=== PATIENT | female | born 1930 | race Caucasian/White ===

== ENCOUNTER 2016-04-29 21:01 | Inpatient (IN) ==
--- NOTE | 2016-04-29 21:18 | Emergency Department Note ---
START Narrative - START START: I examined this patient and my medical decision-making was reviewed with the RECORDS MANAGEMENT ASSISTANT/PA/Advanced Practice Nurse/Resident Physician. I agree with the documented findings, disposition and treatment plan as described except to the extent set forth below. ED attending note: Patient seen with emergency medicine resident Dr. Quintero. Please see a copy of his note for details of the H&P, evaluation, management and disposition of this patient. We independently had [id number] contact with the patient Briefly: A 85-year-old female via EMS from a private residence mental status approximately one week with what appears to be dysesthesias or tardive dyskinesia related today and some word trembling. Nonfocal but slow to answer questions. She mental status workup. She is afebrile with stable vital signs. Disposition pending. 40 minutes critical care service provided for this patient. Patient stable.
[2016-04-29 21:24] LABS: Basophils # 0.1 K/mcL (0.0-0.2); Basophils % 0.8 %; Eosinophils # 0.3 K/mcL (0.0-0.6); Eosinophils % 3.8 %; Hematocrit 36.1 % (35.3-44.9); Hemoglobin 11.8 g/dL (11.5-15.4); Immature Granulocytes % 0.3 % (0-4); Lymphocytes # 1.3 K/mcL (0.6-4.6); Lymphocytes % 17.1 %; Mean Corpuscular HGB Conc 32.7 g/dL (31.6-35.5); Mean Corpuscular Hemoglobin 29.8 pg (28.0-33.3); Mean Corpuscular Volume 91.2 fL (83.0-100.0); Monocytes # 0.6 K/mcL (0.0-1.3); Monocytes % 7.9 %; Neutrophils # 5.2 K/mcL (1.6-8.9); Platelet Count 371 K/mcL (140-400); Red Blood Count 3.96 M/mcL (3.82-4.97); Red Cell Distribution Width 14.6 % (11.5-14.5); Segmented Neutrophils % 70.1 %
[2016-04-29 21:30] LABS: INR 1.1; Prothrombin Time 11.7 Seconds (9.4-12.1)
[2016-04-29 21:39] LABS: Alanine Aminotransferase 15 Units/L (0-55); Albumin 3.4 g/dL (3.5-5.0); Albumin/Globulin Ratio 0.9 (1.1-2.2); Alkaline Phosphatase 73 Units/L (38-126); Aspartate Amino Transferase 18 Units/L (5-34); BUN/Creatinine Ratio 40 (6-26); Bilirubin,Direct 0.1 mg/dL (0.0-0.5); Bilirubin,Indirect 0.1 mg/dL (0.0-1.2); Bilirubin,Total 0.2 mg/dL (0.2-1.2); Blood Urea Nitrogen 44 mg/dL (7-20); Calcium 9.9 mg/dL (8.6-10.8); Carbon Dioxide 21 mEq/L (19-29); Chloride 109 mEq/L (98-109); Ethanol < 10 mg/dL (0-10); Glucose 110 mg/dL (70-99); Osmolality,Calculated 304 (280-300); Potassium 3.9 mEq/L (3.5-4.5); Sodium 141 mEq/L (136-145); Total Protein 7.4 g/dL (6.0-8.3); eGFR For African Americans 58 (> 60); eGFR For Non-African Americans 47 (> 60)
[2016-04-29 22:00] LABS: Thyroid Stimulating Hormone 2.011 mcIU/mL (0.350-4.840)
[2016-04-29 22:59] LABS: Bilirubin,Urine Negative (Negative); Blood,Urine Negative (Negative); Clarity,Urine Turbid (Clear); Color,Urine Yellow (Yellow); Glucose,Urine (UA) Normal (Normal); Ketones,Urine Negative (Negative); Leukocyte Esterase,Urine Moderate (Negative); Nitrite,Urine Negative (Negative); PH,Urine 5.5 pH Units (5.0-8.0); Protein,Urine 100 mg/dL (Neg-Trace); Specific Gravity,Urine 1.023 (1.010-1.025); Urobilinogen,Urine Normal (Normal)
[2016-04-29 23:02] LABS: Bacteria,Urine Many per hpf (None-Few); RBC,Urine 0-3 per hpf (0-3); Squamous Epithelial Cell,Urine Many per lpf (None-Few); WBC,Urine TNTC per hpf (0-3)
[2016-04-29 23:08] LABS: Amorphous Sediment,Urine Few (Few)
--- NOTE | 2016-04-30 00:05 | Emergency Department Note ---
Disposition Clinical Impression: Altered mental status Qualifiers: Altered mental status type: unspecified Qualified Code(s): R41.82 - Altered mental status, unspecified Urinary tract infection Qualifiers: Urinary tract infection type: site unspecified Hematuria presence: without hematuria Qualified Code(s): N39.0 - Urinary tract infection, site not specified Disposition: Admitted As Inpatient Altered Mental Status HPI - General Chief Complaint: ED Altered Mental Status Stated Complaint: AMS Source: EMS Limitations: altered mental status, age Nursing Notes Reviewed: Yes Vital Signs Reviewed: Yes - History of Present Illness HPI Narrative: Patient here for evaluation of altered mental status. Patient has been having issues for approximately 1 week. Initially thought to initiation of Aricept. Patient's did not sleep for 2 days so he removed this. Today the patient began having altered mental status as it relates to intermittent abnormal breathing pattern as well as abnormal movements of the face and lips. Patient with slow cognitive function. Family member at bedside stating it has progressed to the point that she is required more care. She lives at home and undergoes home health care. - Related Data Home Medications Medication Instructions Recorded Confirmed Amlodipine [Norvasc] 10 mg PO DAILY 11/30/14 09/09/15 Simvastatin [Zocor] 20 mg PO QPM 11/30/14 09/09/15 Acetaminophen [Tylenol] 500 mg PO Q6HR PRN 09/01/15 10/18/15 Alendronate Sodium [Fosamax] 70 mg PO QWEEK 09/01/15 10/18/15 Bisacodyl [Dulcolax] 5 mg PO DAILY PRN 09/01/15 10/18/15 Calcium Carbonate/Vitamin D3 1 each PO DAILY 09/01/15 10/18/15 [Calcium 600 + Vit D Tablet] Cholecalciferol (D-3) [Vitamin D] 1,000 unit PO DAILY 09/01/15 10/18/15 Cyanocobalamin (Vitamin B-12) 1,000 mcg SL DAILY 09/01/15 10/18/15 [Vitamin B-12] Multivitamin [Multi-Day Vitamins] 1 each PO DAILY 09/01/15 10/18/15 [place]-3/Dha/Epa/Fish Oil [Fish Oil 1 each PO DAILY 09/01/15 10/18/15 1,000 mg Softgel] Previous Rx's Medication Instructions Recorded Isosorbide MONOnitrate (24 HR) 30 mg PO DAILY #0 09/09/15 [Imdur] Sodium Chloride 2 gm PO TID #0 tablet 09/09/15 TraMADol [Ultram] 50 mg PO TID PRN #20 tablet 09/09/15 Ciprofloxacin HCl [Cipro] 500 mg PO BID #20 tablet 10/02/15 Potassium Chloride 20 meq PO DAILY #5 tab.er.prt 10/12/15 Allergies Allergy/AdvReac Type Severity Reaction Status Date / Time Oxycodone [From Percocet] Allergy hallucinati Verified 09/09/15 23:36 ons prednisone Allergy lip Verified 09/09/15 23:36 swelling Sulfa (Sulfonamide Allergy Rash Verified 09/09/15 23:36 Antibiotics) acetaminophen [From [place]] AdvReac Confusion Verified 04/29/16 21:15 gabapentin AdvReac Confusion Verified 04/29/16 21:15 hydrocodone [From [place]] AdvReac Confusion Verified 04/29/16 21:15 meloxicam [From Mobic] AdvReac leg Verified 09/09/15 23:36 swelling All systems ED: reviewed and negative except as stated. Constitutional: Reports: chills, weakness Respiratory: Reports: other (Inner mid tachypnea lasting for 20-30 seconds happening twice over approximately 4-1/2 hours) Gastrointestinal: Denies: abdominal pain, nausea, vomiting Genitourinary: Denies: urgency, dysuria Musculoskeletal: Denies: back pain, neck pain Integumentary: Denies: rash, abrasion Neurological: Reports: weakness. Denies: headache Past Medical History - Past Medical History Medical history: Reports: arthritis, hypertension, renal disease, other Surgical history: Reports: appendectomy, hysterectomy Psychiatric history: Reports: anxiety CONTINUOUS PICKLING LINE PICKLER history: Reports: no CONTINUOUS PICKLING LINE PICKLER history - Social History Smoking Status: Never smoker Smokeless Tobacco Status: No Alcohol use: Reports: none Drug use: Reports: none Physical Exam - General Limitations: altered mental status, age General appearance: in no apparent distress, other - Head Head exam: atraumatic, normocephalic - Eye Eye exam: Present: normal appearance, PERRL - ENT ENT exam: normal exam, normal oropharynx, mucous membranes dry - Neck Neck exam: Present: normal inspection, full ROM - Chest Chest inspection: Present: normal inspection, symmetric chest wall rise - Respiratory Respiratory exam: Present: normal lung sounds bilaterally. Absent: respiratory distress - Cardiovascular Cardiovascular exam: Present: regular rate, normal rhythm - Abdominal Exam Abdominal exam: Present: soft, Non-Tender - Extremities Exam Extremities exam: Present: normal inspection. Absent: tenderness - Expanded Lower Extremity Exam Hip/Pelvis exam: Present: normal inspection. Absent: tenderness - Back Exam Back exam: Present: normal inspection. Absent: tenderness - Neurological Exam Neurological exam: Present: alert, oriented X3, CN II-XII intact - Expanded Neurological Exam Patient oriented to: Present: person, place (Hospital). Absent: time Speech: Present: fluid speech (Slow) Cranial nerves: EOM function (II, III, IV, ): Normal, facial sensation (V): Normal, facial palsy (VII): Normal, gag reflex (IX): Normal, spinal accessory function (XI): Normal, tongue deviation (XII): Normal Motor strength - LUE: 5/5 Motor strength - RUE: 5/5 Motor strength - LLE: 5/5 Motor strength - RLE: 5/5 Coma Scale Eye Opening: Spontaneous Coma Scale Motor Response: Obeys Commands Coma Scale Verbal Response: Oriented Coma Scale Total: 15 - Psychiatric Psychiatric exam: Present: normal affect, normal mood Course - Consultations Consultation #1: discussed with Dr. Roman. Pt accepted. Vital Signs Temperature 97.7 F 04/29/16 21:04 Pulse Rate 80 04/29/16 21:04 Respiratory Rate 18 04/29/16 21:04 Blood Pressure 148/75 04/29/16 21:04 O2 Sat by Pulse Oximetry 98 04/29/16 21:04 Temperature 97.7 F 04/29/16 21:04 Pulse Rate 81 04/30/16 00:24 Respiratory Rate 16 04/30/16 00:24 Blood Pressure 146/75 04/30/16 00:24 O2 Sat by Pulse Oximetry 97 04/30/16 00:24 Oxygen Delivery Oxygen Delivery Room Air Altered Mental Status - Medical Records Medical records reviewed: Yes I reviewed the patient's medical records. - Lab Data Lab results reviewed: Yes I reviewed the patient's lab results. Result diagrams: 04/29/16 21:15 04/29/16 21:15 Lab Results 01/15/17 01/15/17 01/15/17 Range/Units 21:05 21:15 21:15 WBC 7.4 (4.3-11.1) K/mcL RBC 3.96 (3.82-4.97) M/mcL Hgb 11.8 (11.5-15.4) g/dL Hct 36.1 (35.3-44.9) % MCV 91.2 (83.0-100.0) fL MCH 29.8 (28.0-33.3) pg MCHC 32.7 (31.6-35.5) g/dL RDW 14.6 H (11.5-14.5) % Plt Count 371 (140-400) K/mcL MPV 9.0 L (9.4-12.4) fL Immature Gran % 0.3 (0-4) % Seg Neutrophils % 70.1 % Lymphocytes % 17.1 % Monocytes % 7.9 % Eosinophils % 3.8 % Basophils % 0.8 % Neutrophils # 5.2 (1.6-8.9) K/mcL Lymphocytes # 1.3 (0.6-4.6) K/mcL Monocytes # 0.6 (0.0-1.3) K/mcL Eosinophils # 0.3 (0.0-0.6) K/mcL Basophils # 0.1 (0.0-0.2) K/mcL PT 11.7 (9.4-12.1) Seconds INR 1.1 Sodium (136-145) mEq/L Potassium (3.5-4.5) mEq/L Chloride (98-109) mEq/L Carbon Dioxide (19-29) mEq/L BUN (7-20) mg/dL Creatinine (0.57-1.11) mg/dL Est GFR ( Amer) (> 60) Est GFR (Non-Af Amer) (> 60) BUN/Creatinine Ratio (6-26) Glucose (70-99) mg/dL POC Glucose 121 H (58-89) Calculated Osmolality (280-300) Calcium (8.6-10.8) mg/dL Total Bilirubin (0.2-1.2) mg/dL Direct Bilirubin (0.0-0.5) mg/dL Indirect Bilirubin (0.0-1.2) mg/dL AST (5-34) Units/L ALT (0-55) Units/L Alkaline Phosphatase (38-126) Units/L Troponin I (0-0.03) ng/mL Serum Total Protein (6.0-8.3) g/dL Albumin (3.5-5.0) g/dL Globulin (2.4-3.5) g/dL Albumin/Globulin Ratio (1.1-2.2) TSH (0.350-4.840) mcIU/mL Urine Color (Yellow) Urine Clarity (Clear) Urine pH (5.0-8.0) pH Units Ur Specific [place] (1.010-1.025) Urine Protein (Neg-Trace) mg/dL Urine Glucose (UA) (Normal) mg/dL Urine Clinitest (Negative) Urine Ketones (Negative) mg/dL Urine Blood (Negative) Urine Nitrite (Negative) Urine Bilirubin (Negative) Urine Urobilinogen (Normal) mg/dL Ur Leukocyte Esterase (Negative) Urine Microscopic RBC (0-3) per hpf Urine Microscopic WBC (0-3) per hpf Ur Squamous Epith Cells (None-Few) per lpf Amorphous Sediment (Few) Urine Bacteria (None-Few) per hpf Hyaline Casts Urine Yeast Ur Culture Indicated? (NO) Ethyl Alcohol (0-10) mg/dL 04/29/16 04/29/16 04/29/16 Range/Units 21:15 21:15 22:45 WBC (4.3-11.1) K/mcL RBC (3.82-4.97) M/mcL Hgb (11.5-15.4) g/dL Hct (35.3-44.9) % MCV (83.0-100.0) fL MCH (28.0-33.3) pg MCHC (31.6-35.5) g/dL RDW (11.5-14.5) % Plt Count (140-400) K/mcL MPV (9.4-12.4) fL Immature Gran % (0-4) % Seg Neutrophils % % Lymphocytes % % Monocytes % % Eosinophils % % Basophils % % Neutrophils # (1.6-8.9) K/mcL Lymphocytes # (0.6-4.6) K/mcL Monocytes # (0.0-1.3) K/mcL Eosinophils # (0.0-0.6) K/mcL Basophils # (0.0-0.2) K/mcL PT (9.4-12.1) Seconds INR Sodium 141 (136-145) mEq/L Potassium 3.9 (3.5-4.5) mEq/L Chloride 109 (98-109) mEq/L Carbon Dioxide 21 (19-29) mEq/L BUN 44 H (7-20) mg/dL Creatinine 1.09 (0.57-1.11) mg/dL Est GFR ( Amer) 58 L (> 60) Est GFR (Non-Af Amer) 47 L (> 60) BUN/Creatinine Ratio 40 H (6-26) Glucose 110 H (70-99) mg/dL POC Glucose (58-89) Calculated Osmolality 304 H (280-300) Calcium 9.9 (8.6-10.8) mg/dL Total Bilirubin 0.2 (0.2-1.2) mg/dL Direct Bilirubin 0.1 (0.0-0.5) mg/dL Indirect Bilirubin 0.1 (0.0-1.2) mg/dL AST 18 (5-34) Units/L ALT 15 (0-55) Units/L Alkaline Phosphatase 73 (38-126) Units/L Troponin I 0.02 (0-0.03) ng/mL Serum Total Protein 7.4 (6.0-8.3) g/dL Albumin 3.4 L (3.5-5.0) g/dL Globulin 4.0 H (2.4-3.5) g/dL Albumin/Globulin Ratio 0.9 L (1.1-2.2) TSH 2.011 (0.350-4.840) mcIU/mL Urine Color Yellow (Yellow) Urine Clarity Turbid A (Clear) Urine pH 5.5 (5.0-8.0) pH Units Ur Specific [place] 1.023 (1.010-1.025) Urine Protein 100 H (Neg-Trace) mg/dL Urine Glucose (UA) Normal (Normal) mg/dL Urine Clinitest (Negative) Urine Ketones Negative (Negative) mg/dL Urine Blood Negative (Negative) Urine Nitrite Negative (Negative) Urine Bilirubin Negative (Negative) Urine Urobilinogen Normal (Normal) mg/dL Ur Leukocyte Esterase Moderate H (Negative) Urine Microscopic RBC 0-3 (0-3) per hpf Urine Microscopic WBC TNTC H (0-3) per hpf Ur Squamous Epith Cells Many H (None-Few) per lpf Amorphous Sediment Few (Few) Urine Bacteria Many H (None-Few) per hpf Hyaline Casts Test Not Performed Urine Yeast Test Not Performed Ur Culture Indicated? YES A (NO) Ethyl Alcohol < 10 (0-10) mg/dL - Radiology Data Radiology results reviewed: Yes I reviewed the patient's radiology results. - EKG Data EKG attestation: Yes I reviewed and interpreted this EKG. EKG results narrative: EKG is normal sinus rhythm with ventricular rate of 78 bpm. LA interval 167. QRS 80. QTC 394. Patient has no significant ST elevations or depressions. Nonspecific T-wave changes. No acute changes from 10/02/2015. TPA Checklist - LKW: 3-4.5 hrs Add. Contraindications Patient/family understanding: The patient/family members have been counseled and understood the risk, benefit , and alternatives of treatment.
[2016-04-30] MEDS ORDERED: Naloxone 0.4 MG/ML INJ IVP PRN (02:26)
--- NOTE | 2016-04-30 02:34 | Internal Med History&Physical ---
Date of Encounter: 04/30/16 Time of Encounter: 01:30 Internal Medicine - H&P: HPI Chief complaint: Daughter reports intermittent confusion over the past week Admitted From: Emergency Dept Plans for Post Hospital Care: Home History of present illness: Ms. Barrett is an 85 year old female with medical history signficant for dementia, hyponatremia, hypertension was brought in by EMS after her daughter reported changes in her mental status over the past week. Changed in mental status was initiated thought to be related to institution of Donezepil for dementia, this confusion persisted even after the drug was withdrawn. The patient denies fever, chills or rigors, she denies urinary symptoms, she denies change in bowel habits, nausea or vomiting. She reports memory lapses and lower abdominal pain. Her daughter reports that the patient has not slept in 2 days. Abnormal breathing pattern was reported, however it appears the patient was anxiety and frightened. No cough or SOB reported. There is also report of tic- like involuntary movement of facial muscles, this resolved spontaneously. No history of seizures, she is not using any antipsychotics or medication with D2 blockade effects. She lives at home with her daughter and receives home health care. She is DNRCCA/DNI as per account of her daughter, Jacinta Knott ([phone]) , who is her NOK/POA. Medical history: Reports: arthritis, dementia, hypertension, renal disease, other Surgical history: Reports: appendectomy, hysterectomy Psychiatric history: Reports: anxiety MARKER MAKER history: Reports: no MARKER MAKER history Smoking Status: Never smoker Smokeless Tobacco Status: No Alcohol use: Reports: none Drug use: Reports: none Family history: Unable to obtain ROS: Limited by patients status. She only agrees to memory lapses, and mild lower abdominal pain, otherwise she denies the presence of other symptoms. Vital Signs Temperature 97.7 F 04/29/16 21:04 Pulse Rate 80 04/29/16 21:04 Respiratory Rate 18 04/29/16 21:04 Blood Pressure 148/75 04/29/16 21:04 O2 Sat by Pulse Oximetry 98 04/29/16 21:04 Temperature 97.7 F 04/29/16 21:04 Pulse Rate 81 04/30/16 00:24 Respiratory Rate 16 04/30/16 00:24 Blood Pressure 146/75 04/30/16 00:24 O2 Sat by Pulse Oximetry 97 04/30/16 00:24 O/E: Not in distress, not pale, anicteric, afebrile,acyanotic, anxious, appears frightened. HEENT: Trachea is central, no cervical or jugular lymphadenopathy Chest: CTAB. Heart:rrr, hs1/2 Abdomen: non-distended,soft, , non-tender,no masses. BS+ : no flank or CVA tenderness, no suprapubic tenderness ANGULAR DEVELOPER: aao x 3, no gross focal neurological deficit, very b Psychaitry: Mood is good, affect is congruent, speech is normal, thought process is logical and goal-directed. Extremities: no pedal normal pedal pulses, no calf tenderness SKIN: No active skin lesion Lab Results 04/29/16 04/29/16 04/29/16 Range/Units 21:05 21:15 21:15 WBC 7.4 (4.3-11.1) K/mcL RBC 3.96 (3.82-4.97) M/mcL Hgb 11.8 (11.5-15.4) g/dL Hct 36.1 (35.3-44.9) % MCV 91.2 (83.0-100.0) fL MCH 29.8 (28.0-33.3) pg MCHC 32.7 (31.6-35.5) g/dL RDW 14.6 H (11.5-14.5) % Plt Count 371 (140-400) K/mcL MPV 9.0 L (9.4-12.4) fL Immature Gran % 0.3 (0-4) % Seg Neutrophils % 70.1 % Lymphocytes % 17.1 % Monocytes % 7.9 % Eosinophils % 3.8 % Basophils % 0.8 % Neutrophils # 5.2 (1.6-8.9) K/mcL Lymphocytes # 1.3 (0.6-4.6) K/mcL Monocytes # 0.6 (0.0-1.3) K/mcL Eosinophils # 0.3 (0.0-0.6) K/mcL Basophils # 0.1 (0.0-0.2) K/mcL PT 11.7 (9.4-12.1) Seconds INR 1.1 Sodium (136-145) mEq/L Potassium (3.5-4.5) mEq/L Chloride (98-109) mEq/L Carbon Dioxide (19-29) mEq/L BUN (7-20) mg/dL Creatinine (0.57-1.11) mg/dL Est GFR ( Amer) (> 60) Est GFR (Non-Af Amer) (> 60) BUN/Creatinine Ratio (6-26) Glucose (70-99) mg/dL POC Glucose 121 H (58-89) Calculated Osmolality (280-300) Calcium (8.6-10.8) mg/dL Total Bilirubin (0.2-1.2) mg/dL Direct Bilirubin (0.0-0.5) mg/dL Indirect Bilirubin (0.0-1.2) mg/dL AST (5-34) Units/L ALT (0-55) Units/L Alkaline Phosphatase (38-126) Units/L Troponin I (0-0.03) ng/mL Serum Total Protein (6.0-8.3) g/dL Albumin (3.5-5.0) g/dL Globulin (2.4-3.5) g/dL Albumin/Globulin Ratio (1.1-2.2) TSH (0.350-4.840) mcIU/mL Urine Color (Yellow) Urine Clarity (Clear) Urine pH (5.0-8.0) pH Units Ur Specific [place] (1.010-1.025) Urine Protein (Neg-Trace) mg/dL Urine Glucose (UA) (Normal) mg/dL Urine Clinitest (Negative) Urine Ketones (Negative) mg/dL Urine Blood (Negative) Urine Nitrite (Negative) Urine Bilirubin (Negative) Urine Urobilinogen (Normal) mg/dL Ur Leukocyte Esterase (Negative) Urine Microscopic RBC (0-3) per hpf Urine Microscopic WBC (0-3) per hpf Ur Squamous Epith Cells (None-Few) per lpf Amorphous Sediment (Few) Urine Bacteria (None-Few) per hpf Hyaline Casts Urine Yeast Ur Culture Indicated? (NO) Ethyl Alcohol (0-10) mg/dL 04/29/16 04/29/16 04/29/16 Range/Units 21:15 21:15 22:45 WBC (4.3-11.1) K/mcL RBC (3.82-4.97) M/mcL Hgb (11.5-15.4) g/dL Hct (35.3-44.9) % MCV (83.0-100.0) fL MCH (28.0-33.3) pg MCHC (31.6-35.5) g/dL RDW (11.5-14.5) % Plt Count (140-400) K/mcL MPV (9.4-12.4) fL Immature Gran % (0-4) % Seg Neutrophils % % Lymphocytes % % Monocytes % % Eosinophils % % Basophils % % Neutrophils # (1.6-8.9) K/mcL Lymphocytes # (0.6-4.6) K/mcL Monocytes # (0.0-1.3) K/mcL Eosinophils # (0.0-0.6) K/mcL Basophils # (0.0-0.2) K/mcL PT (9.4-12.1) Seconds INR Sodium 141 (136-145) mEq/L Potassium 3.9 (3.5-4.5) mEq/L Chloride 109 (98-109) mEq/L Carbon Dioxide 21 (19-29) mEq/L BUN 44 H (7-20) mg/dL Creatinine 1.09 (0.57-1.11) mg/dL Est GFR ( Amer) 58 L (> 60) Est GFR (Non-Af Amer) 47 L (> 60) BUN/Creatinine Ratio 40 H (6-26) Glucose 110 H (70-99) mg/dL POC Glucose (58-89) Calculated Osmolality 304 H (280-300) Calcium 9.9 (8.6-10.8) mg/dL Total Bilirubin 0.2 (0.2-1.2) mg/dL Direct Bilirubin 0.1 (0.0-0.5) mg/dL Indirect Bilirubin 0.1 (0.0-1.2) mg/dL AST 18 (5-34) Units/L ALT 15 (0-55) Units/L Alkaline Phosphatase 73 (38-126) Units/L Troponin I 0.02 (0-0.03) ng/mL Serum Total Protein 7.4 (6.0-8.3) g/dL Albumin 3.4 L (3.5-5.0) g/dL Globulin 4.0 H (2.4-3.5) g/dL Albumin/Globulin Ratio 0.9 L (1.1-2.2) TSH 2.011 (0.350-4.840) mcIU/mL Urine Color Yellow (Yellow) Urine Clarity Turbid A (Clear) Urine pH 5.5 (5.0-8.0) pH Units Ur Specific [place] 1.023 (1.010-1.025) Urine Protein 100 H (Neg-Trace) mg/dL Urine Glucose (UA) Normal (Normal) mg/dL Urine Clinitest (Negative) Urine Ketones Negative (Negative) mg/dL Urine Blood Negative (Negative) Urine Nitrite Negative (Negative) Urine Bilirubin Negative (Negative) Urine Urobilinogen Normal (Normal) mg/dL Ur Leukocyte Esterase Moderate H (Negative) Urine Microscopic RBC 0-3 (0-3) per hpf Urine Microscopic WBC TNTC H (0-3) per hpf Ur Squamous Epith Cells Many H (None-Few) per lpf Amorphous Sediment Few (Few) Urine Bacteria Many H (None-Few) per hpf Hyaline Casts Test Not Performed Urine Yeast Test Not Performed Ur Culture Indicated? YES A (NO) Ethyl Alcohol < 10 (0-10) mg/dL CXR: increased lung markings in both perhilar area, unknown significance. EKG: NSR @ 78, normal axis, normal intervals. No significant change when compared to EKG of 10/02/2015. Head CT IMP Altered mental status Urinary tract infection Insomnia Reported facial tics of unknown significance, TIA/CVA unlikely. Chronic morbidities Dementia Hypertension History of hyponatremia on free water restriction. ? CKD. Arthritis PLAN Admit IV Ceftriaxone 1g QD Melatonin 3mg QHS. Urine and blood culture Continue essential medications of chronic morbidities DVT prophylaxis with Lovenox. Patient reassured. Consult high school social science teacher for discharge planning Patient is admitted for treatment of UTI. She is high risk due to associated alteration in mental status Past Med Surg Social Fam HX - Past Medical History Medical history: arthritis, dementia, hypertension, renal disease, other Psychiatric history: anxiety - Past Surgical History Surgical History: appendectomy, hysterectomy - Social History Smoking Status: Never smoker Smokeless Tobacco Status: No Alcohol use: none Drug use: none - Family History Mother Family Member Ethnicity: Non- Living Status: Hx Family Cardiac Disorders: No Hx Family Respiratory Disorders: No Hx Family Cancer: No Hx Family GI Disorders: No Hx Family Endocrine Disorder: No Hx Family Neuromuscular Disorders: No Hx Family Neurologic Disorders: Yes Hx Family HEENT Disorders: No Hx Family Autoimmune Disorders: Yes Internal Medicine - H&P: Meds Amlodipine [Norvasc] 10 mg PO DAILY 11/30/14 [History] Simvastatin [Zocor] 20 mg PO QPM 11/30/14 [History] Acetaminophen [Tylenol] 500 mg PO Q6HR PRN 09/01/15 [History] Alendronate Sodium [Fosamax] 70 mg PO QWEEK 09/01/15 [History] Bisacodyl [Dulcolax] 5 mg PO DAILY PRN 09/01/15 [History] Calcium Carbonate/Vitamin D3 [Calcium 600 + Vit D Tablet] 1 each PO DAILY [History] Cholecalciferol (D-3) [Vitamin D] 1,000 unit PO DAILY 09/01/15 [History] Cyanocobalamin (Vitamin B-12) [Vitamin B-12] 1,000 mcg SL DAILY 09/01/15 [ History] Multivitamin [Multi-Day Vitamins] 1 each PO DAILY 09/01/15 [History] [place]-3/Dha/Epa/Fish Oil [Fish Oil 1,000 mg Softgel] 1 each PO DAILY 09/01/15 [ History] Isosorbide MONOnitrate (24 HR) [Imdur] 30 mg PO DAILY #0 09/09/15 [Rx] Sodium Chloride 2 gm PO TID #0 tablet 09/09/15 [Rx] TraMADol [Ultram] 50 mg PO TID PRN #20 tablet 09/09/15 [Rx] Ciprofloxacin HCl [Cipro] 500 mg PO BID #20 tablet 10/02/15 [Rx] Potassium Chloride 20 meq PO DAILY #5 tab.er.prt 10/12/15 [Rx] Allergies Oxycodone [From Percocet] Allergy (Verified 09/09/15 23:36) hallucinations prednisone Allergy (Verified 09/09/15 23:36) lip swelling Sulfa (Sulfonamide Antibiotics) Allergy (Verified 09/09/15 23:36) Rash acetaminophen [From [place]] Adverse Reaction (Verified 04/29/16 21:15) Confusion gabapentin Adverse Reaction (Verified 04/29/16 21:15) Confusion hydrocodone [From [place]] Adverse Reaction (Verified 04/29/16 21:15) Confusion meloxicam [From Mobic] Adverse Reaction (Verified 09/09/15 23:36) leg swelling All Systems PM: A 10-system review of systems was performed and is negative for pertinent findings except as documented above in the HPI. - Constitutional Vitals: Temp Pulse Resp BP Pulse Ox 97.9 F 98 18 174/86 98 04/30/16 01:12 04/30/16 01:12 04/30/16 01:12 04/30/16 01:12 04/30/16 01:12 Internal Med - H&P Results - Labs CBC & Chem 7: 04/29/16 21:15 04/29/16 21:15
[2016-04-30] MEDS: 0.9 % Sodium Chloride 1,000 ML IVC SCH ×2 (02:48→19:00)
[2016-04-30] MEDS: *HR* Enoxaparin 30 MG/0.3 ML SYRINGE SQ SCH (06:00)
[2016-04-30] MEDS: Cholecalciferol (D-3) 1,000 UNIT TABLET PO SCH (08:21)
[2016-04-30] MEDS: amLODIPine 5 MG TABLET PO SCH (08:21)
[2016-04-30] MEDS: Cyanocobalamin (B-12) 1,000 MCG TABLET PO SCH (08:21)
[2016-04-30] MEDS: Isosorbide MONOnitrate (24 HR) 30 MG TAB.ER.24H PO SCH (08:21)
[2016-04-30] MEDS: Multivit/Ca/Min/Fe/FA 1 TAB TABLET PO SCH (08:21)
[2016-04-30] MEDS: Calcium 600 + Vit D PO SCH (08:28)
--- NOTE | 2016-04-30 13:22 | Electrocardiograph Report ---
[facility] Test Date: 2016-04-29 Pat Name: Xin Barrett Department: 103 Room: 3B35 Gender: F Lpn Rn Hospice: [facility] : 1930 Requested By: Ravinder Quintero Order Number: [id number] Reading MD: Panda Khalil MD Measurements Intervals [place] Rate: 78 P: 68 [place]: 167 QRS: 19 QRSD: 80 T: 50 QT: 361 QTc: 394 Interpretive Statements SINUS RHYTHM Electronically Signed On 04-30-16 13:21:21 EST by Panda Khalil MD
--- NOTE | 2016-04-30 14:20 | Event Note ---
Date of Encounter: 04/30/16 Time of Encounter: 11:00 Patient seen and examined. On examination, patient is sitting upright in bed. Patient is alert and interactive and appears terrified. Patient is trembling. Her second youngest daughters at the bedside and states that up until July of last year, she was living alone and completely independent. Patient then started to search symptoms of depression and was being worked up for mental health issues. She then fell in October and broke her neck and her daughter states that she has been downhill since then. 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 Patient is able to tell me what year it is and who her daughter is but is unable to answer other orientation questions. Her daughter states that she has not officially been diagnosed with dementia at this time but states that she was started on Aricept a week or 2 ago. Abnormal urinalysis noted however urine culture negative; a leukocytosis, antibiotic not indicated and discontinued at this time. Head CT negative. Chest x-ray with possible bronchitis. Respirations even and easy without signs of respiratory distress and good aeration. According to her daughter, the patient lives with the youngest daughter in the youngest daughter's and has home health services. When asked why she is scared, patient stating that nobody understands what is wrong with her and she is scared. Sleep deprivation may also be playing a role given that she states she has not slept in 2 days. In review of her chart, she followed with hematology Dr. Louie on 04/03/16 and was diagnosed with anemia of chronic disease and also had a bone marrow biopsy in May 2015. She was also seen by her primary care provider on 02/16/16 for increased confusion. She was also seen by neurology on 02/29/16 for increased confusion and repetitive movements. At that visit, a brain MRI was suggested as well as routine labs and a referral to psychiatry. Patient was started on low-dose mirtazapine. She also saw neurology Dr. Maharaj on 03/15/16 and had a negative brain MRI at that time. Confusion at that time was thought to be related to anxiety or depression and the patient has an appointment with psychiatrist coming up at the end of April. Her mirtazapine dosage was increased at that time and she was cleared for further outpatient follow-up. During this visit, no acute processes identified. We will bring OT and PT on board. We will bring psychiatry on board. ITS Impressions Chest X-Ray 04/29/16 21:16 IMPRESSION: Low lung volumes. Question of COPD. Increased lung markings at the bilateral parahilar regions, may be related to bronchitis. D/ / Giovanni Gilbert MD / Giovanni Gilbert MD Interpreting Provider: Giovanni Gilbert MD Head CT 04/29/16 21:17 IMPRESSION: No acute intracranial abnormality. D/ / Giovanni Gilbert MD / Giovanni Gilbert MD Interpreting Provider: Giovanni Gilbert MD
[2016-04-30] MEDS ORDERED: *HR* Morphine 2 MG/ML SYRINGE IVP ONE (23:49)
[2016-04-30] MEDS ORDERED: *HR* Morphine 2 MG/ML SYRINGE ONE (23:51)
[2016-05-01] MEDS ORDERED: *HR* LORazepam 2 MG/ML VIAL IVP ONE (02:01)
[2016-05-01] MEDS ORDERED: Water for inj. (sterile) 10 ML IV ONE (02:23)
[2016-05-01 03:34] LABS: Basophils % 0.5 %; Eosinophils % 0.8 %; Hematocrit 32.8 % (35.3-44.9); Hemoglobin 10.7 g/dL (11.5-15.4); Immature Granulocytes % 0.4 % (0-4); Immature Platelets 1.3 % (1.1-6.1); Lymphocytes % 12.5 %; Mean Corpuscular HGB Conc 32.6 g/dL (31.6-35.5); Mean Corpuscular Hemoglobin 29.2 pg (28.0-33.3); Mean Corpuscular Volume 89.4 fL (83.0-100.0); Mean Platelet Volume 8.9 fL (9.4-12.4); Monocytes % 8.1 %; Platelet Count 360 K/mcL (140-400); Red Blood Count 3.67 M/mcL (3.82-4.97); Red Cell Distribution Width 14.6 % (11.5-14.5); Segmented Neutrophils % 77.7 %
[2016-05-01 03:35] LABS: Basophils # 0.1 K/mcL (0.0-0.2); Eosinophils # 0.1 K/mcL (0.0-0.6); Lymphocytes # 1.3 K/mcL (0.6-4.6); Monocytes # 0.8 K/mcL (0.0-1.3)
[2016-05-01 03:53] LABS: BUN/Creatinine Ratio 36 (6-26); Calcium 8.9 mg/dL (8.6-10.8); Carbon Dioxide 20 mEq/L (19-29); Chloride 107 mEq/L (98-109); Glucose 134 mg/dL (70-99); Osmolality,Calculated 288 (280-300); Potassium 3.4 mEq/L (3.5-4.5); Sodium 135 mEq/L (136-145); eGFR For African Americans > 60 (> 60); eGFR For Non-African Americans > 60 (> 60)
[2016-05-01 03:54] LABS: Blood Urea Nitrogen 29 mg/dL (7-20)
[2016-05-01] MEDS: *HR* Enoxaparin 30 MG/0.3 ML SYRINGE SQ SCH (05:24)
--- NOTE | 2016-05-01 10:10 | Internal Med Progress Note ---
Date of Encounter: 05/01/16 Time of Encounter: 09:15 - Assessment and plan (1) Encephalopathy acute Current Visit: No Status: Acute Assessment and plan: Acute on chronic. Patient's daughter stating that up until July of last year that the patient was normal mentally and completely independent. After July, patient started to show signs of severe depression then she fell in October and broke her neck and she has been downhill ever since that time according to her daughter. 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 Patient's daughter states that she has not officially been diagnosed with dementia but she was started on Aricept approximately 1-2 weeks ago. Holding Aricept at this time. Initial urine culture reported as negative however official culture positive for strep viridans and the patient was initially set this to be started on Bactrim however she is nothing by mouth at this time, so will initiate Zosyn. Underlying urinary tract infection may be complicating her chronic dementia/psychiatric issues. Head CT negative. Psychiatry also brought on board, appreciate their recommendations. On examination, patient is asleep and awakens easily. She is able to state that she is in pain but responds with "I do not know" when asked orientation questions. ITS Impressions Head CT 04/29/16 21:17 IMPRESSION: No acute intracranial abnormality. D/ / Giovanni Gilbert MD / Giovanni Gilbert MD Interpreting Provider: Giovanni Gilbert MD (2) SBO (small bowel obstruction) Current Visit: Yes Status: Acute Assessment and plan: In review of her chart overnight, there is no charting as to why an acute abdominal series was obtained but in any event it appears to reveal a possible small bowel obstruction versus ileus. NG tube was placed overnight and is currently on low wall suction. We will keep her nothing by mouth. Abdomen distended but soft and diffusely tender as the patient has facial grimacing when her abdomen is palpated. ITS Impressions KUB X-Ray 04/30/16 23:51 IMPRESSION: 1. Multiple dilated loops of small bowel either due to a partial small bowel obstruction or ileus. D/ / Ortega Samayoa MD / Ortega Samayoa MD Interpreting Provider: Ortega Samayoa MD X-Ray 05/01/16 03:17 IMPRESSION: 1. Nasogastric tube terminating in the proximal gastric body should be advanced approximately 4 cm. D/ / Ortega Samayoa MD / Ortega Samayoa MD Interpreting Provider: Ortega Samayoa MD (3) Urinary tract infection Current Visit: Yes Status: Acute Assessment and plan: Initial urine culture negative however official urine culture consistent with strep viridans. Patient was initially sent to be started on Augmentin however she is nothing by mouth, will initiate Zosyn. (4) Anemia, iron deficiency Current Visit: No Status: Chronic Assessment and plan: Values today consistent with her baseline, no signs of active bleeding. Qualifiers: Iron deficiency anemia type: unspecified iron deficiency Qualified Code(s) : D50.9 - Iron deficiency anemia, unspecified (5) Constipation by delayed colonic transit Current Visit: No Status: Acute (6) DVT prophylaxis Current Visit: No Status: Acute Assessment and plan: Subcutaneous Lovenox (7) Hypokalemia Current Visit: No Status: Acute Assessment and plan: Very mild, We will give K rider and check magnesium levels (8) Hyponatremia Current Visit: No Status: Acute Assessment and plan: Very mild, continue 1 L per day fluid restriction when she is able to take by mouth. She is currently on IV fluids. (9) Pressure ulcer of coccygeal region Current Visit: No Status: Chronic Assessment and plan: Present on admission. Continue dressing changes. Qualifiers: Pressure ulcer stage: stage II Qualified Code(s): L89.152 - Pressure ulcer of sacral region, stage 2 (10) HTN (hypertension) Current Visit: No Status: Chronic Assessment and plan: Hypertensive at times however patient becoming anxious and agitated at times, will continue to trend and adjust medications as indicated. Qualifiers: Hypertension type: essential hypertension Qualified Code(s): I10 - Essential (primary) hypertension (11) Physical deconditioning Current Visit: No Status: Chronic Assessment and plan: Acute on chronic. OT and PT consultations pending. - Subjective Interval history: Patient seen and examined. On examination, patient is sitting in high Colin's and currently asleep. She awakens easily to voice and touch and complains of generalized abdominal pain and quickly falls back to sleep. She remains pleasantly confused and responds "I don't know" when asked orientation questions. - Constitutional Vitals: Temp Pulse Resp BP Pulse Ox 97.8 F 81 16 171/75 95 05/01/16 08:04 05/01/16 08:04 05/01/16 08:04 05/01/16 08:04 05/01/16 08:04 General appearance: Present: A&O X 1, no acute distress. Absent: answers questions appropriately - Head Head exam: Present: atraumatic, normocephalic - Eye Eye exam: Present: PERRL, conjuntiva pink, sclera anicteric Pupils: Present: PERRL - Neck Neck exam general surgery: Present: supple, trachea midline. Absent: lymphadenopathy - Respiratory Respiratory exam: Present: decreased breath sounds. Absent: accessory muscle use, rales, respiratory distress, rhonchi, wheezes - Cardiovascular Cardiovascular exam: Present: RRR, +S1, +S2. Absent: diastolic murmur, gallop, rubs, systolic murmur - GI/Abdominal GI/Abdominal exam: Present: distended, hypoactive bowel sounds, soft, tenderness (facial grimmacing), no peritoneal signs - Extremities Exam Extremities exam: Present: warm, radial pulses palpable and symetrical. Absent : calf tenderness, cyanotic, pedal edema - Neurological Exam Neurological exam: Present: altered, CN II-XII intact, no focal deficits, strengths equal and symetr throughout. Absent: pronater drift, facial droop, speech deficit - Skin Skin exam: Present: dry, intact, pallor, warm Internal Medicine: Result - Labs CBC & Chem 7: 05/01/16 03:27 05/01/16 03:27 Labs: Short CBC 05/01/16 Range/Units 03:27 WBC 10.3 (4.3-11.1) K/mcL Hgb 10.7 L (11.5-15.4) g/dL Hct 32.8 L (35.3-44.9) % Plt Count 360 (140-400) K/mcL Neutrophils # 8.0 (1.6-8.9) K/mcL BMP 05/01/16 03:27 Sodium 135 L Potassium 3.4 L Chloride 107 Carbon Dioxide 20 BUN 29 H D Creatinine 0.80 Glucose 134 H Calcium 8.9 - ABG Interpretation ABG results: PT/INR, D-dimer PT 11.7 Seconds (9.4-12.1) 04/29/16 21:15 - Impressions Impressions KUB X-Ray 04/30/16 23:51 IMPRESSION: 1. Multiple dilated loops of small bowel either due to a partial small bowel obstruction or ileus. D/ / Ortega Samayoa MD / Ortega Samayoa MD Interpreting Provider: Ortega Samayoa MD X-Ray 05/01/16 03:17 IMPRESSION: 1. Nasogastric tube terminating in the proximal gastric body should be advanced approximately 4 cm. D/ / Ortega Samayoa MD / Ortega Samayoa MD Interpreting Provider: Ortega Samayoa MD Consult Discharge Plan - Plan Referrals: Karla Eugene, [employer] [Advanced Practice Nurse] - 05/08/16 1:00 pm
[2016-05-01] MEDS: Isosorbide MONOnitrate (24 HR) 30 MG TAB.ER.24H PO SCH (10:17)
[2016-05-01] MEDS: amLODIPine 5 MG TABLET PO SCH (10:18)
[2016-05-01] MEDS: Calcium 600 + Vit D PO SCH (10:18)
[2016-05-01] MEDS: Multivit/Ca/Min/Fe/FA 1 TAB TABLET PO SCH (10:19)
[2016-05-01] MEDS: Cyanocobalamin (B-12) 1,000 MCG TABLET PO SCH (10:19)
[2016-05-01] MEDS: Cholecalciferol (D-3) 1,000 UNIT TABLET PO SCH (10:20)
[2016-05-01] MEDS: Piperacillin/Tazobactam 3.375 GM in D5% in Water (Mini-Bag+) 100 ML IVPB SCH ×2 (10:41→19:54)
--- NOTE | 2016-05-01 17:01 | Consult Note ---
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 There appear normal behavioral disturbances or changes also then less energy and lack of attention and lack of energy due to her multiple medical problems. At this time I would recommend restarting the patient on mirtazapine 7.5 mg at bedtime to improve her appetite also as an antidepressants. In addition depending on her recovery from parents infection and other medical issues in the near future she may be restarted on Aricept or start from a small dose of Namenda 5 mg daily to be increased if tolerated to improve her energy and attention. In addition to this recommendation I would recommend placement of the patient in a retirement for long-term care facility where she can be helped and maintained and her needs can be met and also depend on her recovery she may need to be placed and special dementia units if she will continue to have cognitive problems after recovering from her acute condition. Thank you very much for the consultation and please address any questions History of Present Illness Patient: new to practice Requesting Physician: Wendy Lacey Reason for consult: depression History of present illness: Ms. Barrett is a 85 year old female admitted to the hospital with multiple medical problems and complex medical history including recurrent tract infection and dehydration change in mental status and for details please see medical H&P. Psychiatric consultation was requested to evaluate depression and anxiety. I reviewed medical records and interview with the patient briefly. She presented as cachectic elderly white female, she was lethargic and she responded on and off to my voice and to my direction however she seem lethargic and sedated and delirious. Patient could not answer history questions due to her condition and appears to have decline in mental status which is a mix of delirium and dementia. CC: Wendy Lacey Past Med Surg Social Fam HX - Past Medical History Medical history: arthritis, dementia, hypertension, renal disease, other - Past Psychiatric History Psychiatric history: Reports: anxiety, depression Family psychiatric history: Unknown Family History of Suicide: Unknown - Past Surgical History Surgical History: appendectomy, hysterectomy - Social History Smoking Status: Never smoker Smokeless Tobacco Status: No Alcohol use: none Drug use: none - Family History Mother Family Member Ethnicity: Non- Living Status: Hx Family Cardiac Disorders: No Hx Family Respiratory Disorders: No Hx Family Cancer: No Hx Family GI Disorders: No Hx Family Endocrine Disorder: No Hx Family Neuromuscular Disorders: No Hx Family Neurologic Disorders: Yes Hx Family HEENT Disorders: No Hx Family Autoimmune Disorders: Yes Medications & Allergies Amlodipine [Norvasc] 10 mg PO DAILY 11/30/14 [History] Simvastatin [Zocor] 20 mg PO QPM 11/30/14 [History] Acetaminophen [Tylenol] 500 mg PO Q6HR PRN 09/01/15 [History] Alendronate Sodium [Fosamax] 70 mg PO QWEEK 09/01/15 [History] Bisacodyl [Dulcolax] 5 mg PO DAILY PRN 09/01/15 [History] Calcium Carbonate/Vitamin D3 [Calcium 600 + Vit D Tablet] 1 each PO DAILY [History] Cholecalciferol (D-3) [Vitamin D] 1,000 unit PO DAILY 09/01/15 [History] Cyanocobalamin (Vitamin B-12) [Vitamin B-12] 1,000 mcg SL DAILY 09/01/15 [ History] Multivitamin [Multi-Day Vitamins] 1 each PO DAILY 09/01/15 [History] Mayo-3/Dha/Epa/Fish Oil [Fish Oil 1,000 mg Softgel] 1 each PO DAILY 09/01/15 [ History] Potassium Chloride 20 meq PO DAILY #5 tab.er.prt 10/12/15 [Rx] Donepezil HCl [Donepezil HCl Odt] 5 mg PO HS 04/30/16 [History] Isosorbide DInitrate [Isosorbide Dinitrate] 10 mg PO BID 04/30/16 [History] LORazepam [Ativan] 0.5 mg PO HS PRN 04/30/16 [History] Mirtazapine 15 mg PO DAILY 04/30/16 [History] Venlafaxine [Effexor] 75 mg PO DAILY 04/30/16 [History] Allergies Oxycodone [From Percocet] Allergy (Verified 09/09/15 23:36) hallucinations prednisone Allergy (Verified 09/09/15 23:36) lip swelling Sulfa (Sulfonamide Antibiotics) Allergy (Verified 09/09/15 23:36) Rash acetaminophen [From [place]] Adverse Reaction (Verified 04/29/16 21:15) Confusion gabapentin Adverse Reaction (Verified 04/29/16 21:15) Confusion hydrocodone [From [place]] Adverse Reaction (Verified 04/29/16 21:15) Confusion meloxicam [From [place]] Adverse Reaction (Verified 09/09/15 23:36) leg swelling Review of Systems Psychiatric: Reports: depression, anxiety, change in appetite Mental Status Exam Patient orientation: Yes Person Level of alertness: Sedated, Does not respond to painful stimuli Patient appearance: Disheveled, Malodorous Behavior: calm, withdrawn Psychomotor activity: Slowed Eye contact: Minimal Contact Mood description: Depressed Affect description: constricted, flat Speech pattern: Slowed, Disorganized, Impoverished Speech volume: Soft/Quiet Thought process: Disorganized, Slowed Thinking Thought content: Yes Poverty of Content Perceptual disturbances: No Auditory hallucinations, No Visual hallucinations Attention span: Unable to Focus Memory description: Immediate Impaired, Remote Impaired Patient reliability: Not Reliable Historian Intelligence estimate: Below Average Judgment: Limited Insight: Minimal Results - Vital Signs Vital signs: Temp Pulse Resp BP Pulse Ox 98.6 F 76 16 147/73 97 05/01/16 16:02 05/01/16 16:02 05/01/16 16:02 05/01/16 16:02 05/01/16 16:02 - Labs Labs: Laboratory Last Values WBC 10.3 K/mcL (4.3-11.1) 05/01/16 03:27 RBC 3.67 M/mcL (3.82-4.97) L 05/01/16 03:27 Hgb 10.7 g/dL (11.5-15.4) L 05/01/16 03:27 Hct 32.8 % (35.3-44.9) L 05/01/16 03:27 MCV 89.4 fL (83.0-100.0) 05/01/16 03:27 MCH 29.2 pg (28.0-33.3) 05/01/16 03:27 MCHC 32.6 g/dL (31.6-35.5) 05/01/16 03:27 RDW 14.6 % (11.5-14.5) H 05/01/16 03:27 Plt Count 360 K/mcL (140-400) 05/01/16 03:27 MPV 8.9 fL (9.4-12.4) L 05/01/16 03:27 Immature Gran % 0.4 % (0-4) 05/01/16 03:27 Seg Neutrophils % 77.7 % 05/01/16 03:27 Lymphocytes % 12.5 % 05/01/16 03:27 Monocytes % 8.1 % 05/01/16 03:27 Eosinophils % 0.8 % 05/01/16 03:27 Basophils % 0.5 % 05/01/16 03:27 Neutrophils # 8.0 K/mcL (1.6-8.9) 05/01/16 03:27 Lymphocytes # 1.3 K/mcL (0.6-4.6) 05/01/16 03:27 Monocytes # 0.8 K/mcL (0.0-1.3) 05/01/16 03:27 Eosinophils # 0.1 K/mcL (0.0-0.6) 05/01/16 03:27 Basophils # 0.1 K/mcL (0.0-0.2) 05/01/16 03:27 Immature Plt Fraction 1.3 % (1.1-6.1) 05/01/16 03:27 PT 11.7 Seconds (9.4-12.1) 04/29/16 21:15 INR 1.1 04/29/16 21:15 Sodium 135 mEq/L (136-145) L 05/01/16 03:27 Potassium 3.4 mEq/L (3.5-4.5) L 05/01/16 03:27 Chloride 107 mEq/L (98-109) 05/01/16 03:27 Carbon Dioxide 20 mEq/L (19-29) 05/01/16 03:27 BUN 29 mg/dL (7-20) H D 05/01/16 03:27 Creatinine 0.80 mg/dL (0.57-1.11) 05/01/16 03:27 Est GFR ( Amer) > 60 (> 60) 05/01/16 03:27 Est GFR (Non-Af Amer) > 60 (> 60) 05/01/16 03:27 BUN/Creatinine Ratio 36 (6-26) H 05/01/16 03:27 Glucose 134 mg/dL (70-99) H 05/01/16 03:27 POC Glucose 121 (58-89) H 04/29/16 21:05 Calculated Osmolality 288 (280-300) 05/01/16 03:27 Lactic Acid 0.9 mmol/L (0.5-2.2) 05/01/16 03:27 Calcium 8.9 mg/dL (8.6-10.8) 05/01/16 03:27 Total Bilirubin 0.2 mg/dL (0.2-1.2) 04/29/16 21:15 Direct Bilirubin 0.1 mg/dL (0.0-0.5) 04/29/16 21:15 Indirect Bilirubin 0.1 mg/dL (0.0-1.2) 04/29/16 21:15 AST 18 Units/L (5-34) 04/29/16 21:15 ALT 15 Units/L (0-55) 04/29/16 21:15 Alkaline Phosphatase 73 Units/L (38-126) 04/29/16 21:15 Troponin I 0.02 ng/mL (0-0.03) 04/29/16 21:15 Serum Total Protein 7.4 g/dL (6.0-8.3) 04/29/16 21:15 Albumin 3.4 g/dL (3.5-5.0) L 04/29/16 21:15 Globulin 4.0 g/dL (2.4-3.5) H 04/29/16 21:15 Albumin/Globulin Ratio 0.9 (1.1-2.2) L 04/29/16 21:15 TSH 2.011 mcIU/mL (0.350-4.840) 04/29/16 21:15 Urine Color Yellow (Yellow) 04/29/16 22:45 Urine Clarity Turbid (Clear) A 04/29/16 22:45 Urine pH 5.5 pH Units (5.0-8.0) 04/29/16 22:45 Ur Specific Hugo 1.023 (1.010-1.025) 04/29/16 22:45 Urine Protein 100 mg/dL (Neg-Trace) H 04/29/16 22:45 Urine Glucose (UA) Normal mg/dL (Normal) 04/29/16 22:45 Urine Clinitest (Negative) 04/29/16 22:45 Urine Ketones Negative mg/dL (Negative) 04/29/16 22:45 Urine Blood Negative (Negative) 04/29/16 22:45 Urine Nitrite Negative (Negative) 04/29/16 22:45 Urine Bilirubin Negative (Negative) 04/29/16 22:45 Urine Urobilinogen Normal mg/dL (Normal) 04/29/16 22:45 Ur Leukocyte Esterase Moderate (Negative) H 04/29/16 22:45 Urine Microscopic RBC 0-3 per hpf (0-3) 04/29/16 22:45 Urine Microscopic WBC TNTC per hpf (0-3) H 04/29/16 22:45 Ur Squamous Epith Cells Many per lpf (None-Few) H 04/29/16 22:45 Amorphous Sediment Few (Few) 04/29/16 22:45 Urine Bacteria Many per hpf (None-Few) H 04/29/16 22:45 Hyaline Casts Test Not Performed 04/29/16 22:45 Urine Yeast Test Not Performed 04/29/16 22:45 Ur Culture Indicated? YES (NO) A 04/29/16 22:45 Ethyl Alcohol < 10 mg/dL (0-10) 04/29/16 21:15 Consult Discharge Plan - Plan Referrals: Karla Eugene, DIALS INSPECTOR [Advanced Practice Nurse] - 05/08/16 1:00 pm
[2016-05-01] MEDS ORDERED: Acetaminophen IV 1,000 MG/100 ML INFUS..BTL IVPB STA (22:09)
[2016-05-01] MEDS: *HR* Morphine 2 MG/ML SYRINGE IVP PRN (22:15)
[2016-05-02] MEDS: *HR* Morphine 2 MG/ML SYRINGE IVP PRN ×4 (03:40→20:18)
[2016-05-02] MEDS: Piperacillin/Tazobactam 3.375 GM in D5% in Water (Mini-Bag+) 100 ML IVPB SCH ×3 (03:43→18:56)
[2016-05-02 05:21] LABS: Basophils % 0.4 %; Eosinophils # 0.1 K/mcL (0.0-0.6); Eosinophils % 1.5 %; Hematocrit 32.2 % (35.3-44.9); Hemoglobin 10.6 g/dL (11.5-15.4); Immature Granulocytes % 0.4 % (0-4); Lymphocytes # 1.1 K/mcL (0.6-4.6); Lymphocytes % 15.6 %; Mean Corpuscular HGB Conc 32.9 g/dL (31.6-35.5); Mean Corpuscular Hemoglobin 29.4 pg (28.0-33.3); Mean Corpuscular Volume 89.4 fL (83.0-100.0); Mean Platelet Volume 9.5 fL (9.4-12.4); Monocytes # 0.6 K/mcL (0.0-1.3); Monocytes % 8.4 %; Neutrophils # 5.2 K/mcL (1.6-8.9); Platelet Count 291 K/mcL (140-400); Red Cell Distribution Width 14.3 % (11.5-14.5); Segmented Neutrophils % 73.7 %
[2016-05-02 05:46] LABS: BUN/Creatinine Ratio 30 (6-26); Blood Urea Nitrogen 21 mg/dL (7-20); Calcium 8.7 mg/dL (8.6-10.8); Carbon Dioxide 22 mEq/L (19-29); Chloride 104 mEq/L (98-109); Glucose 95 mg/dL (70-99); Magnesium 1.4 mg/dL (1.6-2.6); Osmolality,Calculated 281 (280-300); Potassium 3.2 mEq/L (3.5-4.5); Sodium 134 mEq/L (136-145); eGFR For African Americans > 60 (> 60); eGFR For Non-African Americans > 60 (> 60)
[2016-05-02] MEDS: *HR* Enoxaparin 30 MG/0.3 ML SYRINGE SQ SCH (05:49)
[2016-05-02] MEDS: Isosorbide MONOnitrate (24 HR) 30 MG TAB.ER.24H PO SCH (10:15)
[2016-05-02] MEDS: Cholecalciferol (D-3) 1,000 UNIT TABLET PO SCH (10:15)
[2016-05-02] MEDS: Cyanocobalamin (B-12) 1,000 MCG TABLET PO SCH (10:15)
[2016-05-02] MEDS: Multivit/Ca/Min/Fe/FA 1 TAB TABLET PO SCH (10:15)
[2016-05-02] MEDS: amLODIPine 5 MG TABLET PO SCH (10:15)
[2016-05-02] MEDS: Calcium 600 + Vit D PO SCH (10:16)
[2016-05-02] MEDS: Potassium Chloride 40 MEQ in D5% in 0.45% NACL 1,000 ML IVC SCH ×2 (10:16→23:33)
--- NOTE | 2016-05-02 13:30 | Internal Med Progress Note ---
Date of Encounter: 05/02/16 Time of Encounter: 10:00 - Assessment and plan (1) Encephalopathy acute Current Visit: No Status: Acute Assessment and plan: Due to UTI. Overall, patient appears to be consistent with her baseline. Patient will answer simple orientation questions and is oriented 3 however she refuses to answer most of the questions. Her daughter states that this is normal for her in the last few months. Psychiatry has seen the patient, awaiting their recommendations. We will continue to treat her urinary tract infection with Zosyn and transitioned to Augmentin once she is able to take by mouth. 05/01/16 Acute on chronic. Patient's daughter stating that up until July of last year that the patient was normal mentally and completely independent. After July, patient started to show signs of severe depression then she fell in October and broke her neck and she has been downhill ever since that time according to her daughter. 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 Patient's daughter states that she has not officially been diagnosed with dementia but she was started on Aricept approximately 1-2 weeks ago. Holding Aricept at this time. Initial urine culture reported as negative however official culture positive for strep viridans and the patient was initially set this to be started on Bactrim however she is nothing by mouth at this time, so will initiate Zosyn. Underlying urinary tract infection may be complicating her chronic dementia/psychiatric issues. Head CT negative. Psychiatry also brought on board, appreciate their recommendations. On examination, patient is asleep and awakens easily. She is able to state that she is in pain but responds with "I do not know" when asked orientation questions. ITS Impressions Head CT 04/29/16 21:17 IMPRESSION: No acute intracranial abnormality. D/ / Giovanni Gilbert MD / Giovanni Gilbert MD Interpreting Provider: Giovanni Gilbert MD (2) SBO (small bowel obstruction) Current Visit: Yes Status: Acute Assessment and plan: Abdomen remains distended but soft and diffusely tender. Positive bowel sounds in all 4 quadrants. We will obtain acute abdominal series. Patient has been flatulent. If acute abdominal series negative, will advance diet. 05/01/16 In review of her chart overnight, there is no charting as to why an acute abdominal series was obtained but in any event it appears to reveal a possible small bowel obstruction versus ileus. NG tube was placed overnight and is currently on low wall suction. We will keep her nothing by mouth. Abdomen distended but soft and diffusely tender as the patient has facial grimacing when her abdomen is palpated. ITS Impressions KUB X-Ray 04/30/16 23:51 IMPRESSION: 1. Multiple dilated loops of small bowel either due to a partial small bowel obstruction or ileus. D/ / Ortega Samayoa MD / Ortega Samayoa MD Interpreting Provider: Ortega Samayoa MD X-Ray 05/01/16 03:17 IMPRESSION: 1. Nasogastric tube terminating in the proximal gastric body should be advanced approximately 4 cm. D/ / Ortega Samayoa MD / Ortega Samayoa MD Interpreting Provider: Ortega Samayoa MD (3) Urinary tract infection Current Visit: Yes Status: Acute Assessment and plan: Initial urine culture negative however official urine culture consistent with strep viridans. Patient was initially sent to be started on Augmentin however she is nothing by mouth, will continue Zosyn until she is able to take PO. (4) Anemia, iron deficiency Current Visit: No Status: Chronic Assessment and plan: Consistent with her baseline, no signs of active bleeding. Qualifiers: Iron deficiency anemia type: unspecified iron deficiency Qualified Code(s) : D50.9 - Iron deficiency anemia, unspecified (5) Constipation by delayed colonic transit Current Visit: No Status: Acute (6) DVT prophylaxis Current Visit: No Status: Acute Assessment and plan: Subcutaneous Lovenox (7) Hypokalemia Current Visit: No Status: Acute Assessment and plan: Worsened overnight despite giving 40meq K rider yesterday. Magnesium also low- will replace both and monitor. (8) Hyponatremia Current Visit: No Status: Acute Assessment and plan: Very mild, continue 1 L per day fluid restriction when she is able to take by mouth. She is currently on IV fluids. (9) HTN (hypertension) Current Visit: No Status: Chronic Assessment and plan: Hypertensive at times however patient becoming anxious and agitated at times- more controlled today, will continue to trend and adjust medications as indicated. Qualifiers: Hypertension type: essential hypertension Qualified Code(s): I10 - Essential (primary) hypertension (10) Physical deconditioning Current Visit: No Status: Chronic Assessment and plan: Acute on chronic. OT and PT have recommended ECF placement. Her SBO will need addressed prior to sending to ECF. Possible transfer saturday pending clinical outcomes. - Subjective Interval history: Patient seen and examined. On examination, patient resting supine in bed with her eyes closed. She does open her eyes to voice and complains of generalized abdominal pain. She also complains of neck pain. She states she has been flatulent but did not have a bowel movement overnight. Her daughter is at the bedside. - Constitutional Vitals: Temp Pulse Resp BP Pulse Ox 98.0 F 91 14 122/74 93 L 05/02/16 12:03 05/02/16 12:03 05/02/16 12:03 05/02/16 12:03 05/02/16 12:03 General appearance: Present: A&O X 3, no acute distress. Absent: answers questions appropriately (refuses to answer most questions) - Head Head exam: Present: atraumatic, normocephalic - Eye Eye exam: Present: PERRL, conjuntiva pink, sclera anicteric Pupils: Present: PERRL - Neck Neck exam general surgery: Present: supple, trachea midline. Absent: lymphadenopathy - Respiratory Respiratory exam: Present: CTAB. Absent: accessory muscle use, rales, respiratory distress, rhonchi, wheezes - Cardiovascular Cardiovascular exam: Present: RRR, +S1, +S2. Absent: diastolic murmur, gallop, rubs, systolic murmur - GI/Abdominal GI/Abdominal exam: Present: distended, hyperactive bowel sounds, soft, tenderness (diffuse), no peritoneal signs - Extremities Exam Extremities exam: Present: warm, radial pulses palpable and symetrical. Absent : calf tenderness, cyanotic, pedal edema - Neurological Exam Neurological exam: Present: alert, CN II-XII intact, oriented X3, no focal deficits, strengths equal and symetr throughout. Absent: pronater drift, facial droop, speech deficit - Skin Skin exam: Present: dry, intact, pallor, warm Internal Medicine: Result - Labs CBC & Chem 7: 05/02/16 04:00 05/02/16 04:00 Labs: Short CBC 05/02/16 Range/Units 04:00 WBC 7.1 (4.3-11.1) K/mcL Hgb 10.6 L (11.5-15.4) g/dL Hct 32.2 L (35.3-44.9) % Plt Count 291 (140-400) K/mcL Neutrophils # 5.2 (1.6-8.9) K/mcL BMP 05/02/16 04:00 Sodium 134 L Potassium 3.2 L Chloride 104 Carbon Dioxide 22 BUN 21 H Creatinine 0.71 Glucose 95 Calcium 8.7 - ABG Interpretation ABG results: PT/INR, D-dimer PT 11.7 Seconds (9.4-12.1) 04/29/16 21:15 Consult Discharge Plan - Plan Referrals: Karla Eugene, ARCHITECTURE ANALYST [Advanced Practice Nurse] - 05/08/16 1:00 pm
[2016-05-02] MEDS ORDERED: Magnesium Sulfate 1 GM in D5% in Water 100 ML IVPB ONE (13:35)
[2016-05-02] MEDS: 0.9 % Sodium Chloride 1,000 ML IVC SCH (19:49)
[2016-05-02] MEDS: Ondansetron 4 MG/2 ML VIAL IVP PRN (20:18)
[2016-05-03] MEDS: Piperacillin/Tazobactam 3.375 GM in D5% in Water (Mini-Bag+) 100 ML IVPB SCH ×3 (04:25→17:57)
[2016-05-03] MEDS: *HR* Enoxaparin 30 MG/0.3 ML SYRINGE SQ SCH (04:25)
[2016-05-03 04:47] LABS: BUN/Creatinine Ratio 26 (6-26); Blood Urea Nitrogen 21 mg/dL (7-20); Calcium 8.7 mg/dL (8.6-10.8); Carbon Dioxide 22 mEq/L (19-29); Chloride 103 mEq/L (98-109); Glucose 122 mg/dL (70-99); Magnesium 1.6 mg/dL (1.6-2.6); Osmolality,Calculated 280 (280-300); Potassium 3.9 mEq/L (3.5-4.5); Sodium 133 mEq/L (136-145); eGFR For African Americans > 60 (> 60); eGFR For Non-African Americans > 60 (> 60)
[2016-05-03] MEDS: Potassium Chloride 40 MEQ in D5% in 0.45% NACL 1,000 ML IVC SCH ×2 (05:54→20:54)
[2016-05-03] MEDS: Cyanocobalamin (B-12) 1,000 MCG TABLET PO SCH (08:44)
[2016-05-03] MEDS: Multivit/Ca/Min/Fe/FA 1 TAB TABLET PO SCH ×2 (08:44→08:57)
[2016-05-03] MEDS: amLODIPine 5 MG TABLET PO SCH (08:44)
[2016-05-03] MEDS: Isosorbide MONOnitrate (24 HR) 30 MG TAB.ER.24H PO SCH (08:44)
[2016-05-03] MEDS: Cholecalciferol (D-3) 1,000 UNIT TABLET PO SCH (08:44)
[2016-05-03] MEDS: Calcium 600 + Vit D PO SCH (08:45)
[2016-05-03] MEDS: traMADol 50 MG TABLET PO PRN (08:47)
[2016-05-03] MEDS: *HR* Morphine 2 MG/ML SYRINGE IVP PRN ×2 (11:49→20:54)
--- NOTE | 2016-05-03 14:26 | Internal Med Progress Note ---
Date of Encounter: 05/03/16 Time of Encounter: 10:00 - Assessment and plan (1) Encephalopathy acute Current Visit: No Status: Acute Assessment and plan: Patient remains alert and interactive and is very selective over the questions that she will answer. She is oriented 3 but chooses not to answer most questions. Her daughter states this is consistent with her baseline. 05/02/16 Due to UTI. Overall, patient appears to be consistent with her baseline. Patient will answer simple orientation questions and is oriented 3 however she refuses to answer most of the questions. Her daughter states that this is normal for her in the last few months. Psychiatry has seen the patient, awaiting their recommendations. We will continue to treat her urinary tract infection with Zosyn and transitioned to Augmentin once she is able to take by mouth. 05/01/16 Acute on chronic. Patient's daughter stating that up until July of last year that the patient was normal mentally and completely independent. After July, patient started to show signs of severe depression then she fell in October and broke her neck and she has been downhill ever since that time according to her daughter. 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 Patient's daughter states that she has not officially been diagnosed with dementia but she was started on Aricept approximately 1-2 weeks ago. Holding Aricept at this time. Initial urine culture reported as negative however official culture positive for strep viridans and the patient was initially set this to be started on Bactrim however she is nothing by mouth at this time, so will initiate Zosyn. Underlying urinary tract infection may be complicating her chronic dementia/psychiatric issues. Head CT negative. Psychiatry also brought on board, appreciate their recommendations. On examination, patient is asleep and awakens easily. She is able to state that she is in pain but responds with "I do not know" when asked orientation questions. ITS Impressions Head CT 04/29/16 21:17 IMPRESSION: No acute intracranial abnormality. D/ / Giovanni Gilbert MD / Giovanni Gilbert MD Interpreting Provider: Giovanni Gilbert MD (2) SBO (small bowel obstruction) Current Visit: Yes Status: Resolved Assessment and plan: Repeat imaging reveals resolution of obstruction. Tolerated clear liquids, advancing to soft diet and will continue to advance as she tolerates. Impressions Chest/Abdomen X-ray 05/02/16 13:32 IMPRESSION: Nonobstructed bowel-gas pattern D/ / Joel Christie MD / Joel Christie MD Interpreting Provider: Joel Christie MD 05/02/16 Abdomen remains distended but soft and diffusely tender. Positive bowel sounds in all 4 quadrants. We will obtain acute abdominal series. Patient has been flatulent. If acute abdominal series negative, will advance diet. 05/01/16 In review of her chart overnight, there is no charting as to why an acute abdominal series was obtained but in any event it appears to reveal a possible small bowel obstruction versus ileus. NG tube was placed overnight and is currently on low wall suction. We will keep her nothing by mouth. Abdomen distended but soft and diffusely tender as the patient has facial grimacing when her abdomen is palpated. ITS Impressions KUB X-Ray 04/30/16 23:51 IMPRESSION: 1. Multiple dilated loops of small bowel either due to a partial small bowel obstruction or ileus. D/ / Ortega Samayoa MD / Ortega Samayoa MD Interpreting Provider: Ortega Samayoa MD X-Ray 05/01/16 03:17 IMPRESSION: 1. Nasogastric tube terminating in the proximal gastric body should be advanced approximately 4 cm. D/ / Ortega Samayoa MD / Ortega Samayoa MD Interpreting Provider: Ortega Samayoa MD (3) Urinary tract infection Current Visit: Yes Status: Acute Assessment and plan: We will transition her over to by mouth medications. 05/02/16 Initial urine culture negative however official urine culture consistent with strep viridans. Patient was initially sent to be started on Augmentin however she is nothing by mouth, will continue Zosyn until she is able to take PO. (4) Anemia, iron deficiency Current Visit: No Status: Chronic Assessment and plan: Consistent with her baseline, no signs of active bleeding. Qualifiers: Iron deficiency anemia type: unspecified iron deficiency Qualified Code(s) : D50.9 - Iron deficiency anemia, unspecified (5) Constipation by delayed colonic transit Current Visit: No Status: Resolved Assessment and plan: mild stool on imaging (6) DVT prophylaxis Current Visit: No Status: Acute Assessment and plan: Subcutaneous Lovenox (7) Hypokalemia Current Visit: No Status: Resolved (8) Hyponatremia Current Visit: No Status: Acute Assessment and plan: Very mild, continue 1 L per day fluid restriction when she is able to take by mouth. She is currently on IV fluids. (9) HTN (hypertension) Current Visit: No Status: Chronic Assessment and plan: Controlled, will continue to trend and adjust medications as indicated. Qualifiers: Hypertension type: essential hypertension Qualified Code(s): I10 - Essential (primary) hypertension (10) Physical deconditioning Current Visit: No Status: Chronic Assessment and plan: Acute on chronic. OT and PT have recommended ECF placement. We will advance her diet today as she tolerates and possible send her to ECF tomorrow pending clinical outcomes. - Subjective Interval history: Patient seen and examined. On examination, patient sitting upright in bed. Her daughter is at the bedside. Patient is alert and interactive but again refusing to answer most questions. She does deny pain at this time and states that she did not like the broth or jello offered to her for breakfast. She states her abdominal pain is improved from yesterday but states that she "hurts all over." - Constitutional Vitals: Temp Pulse Resp BP Pulse Ox 99.0 F 86 16 131/74 96 05/03/16 11:23 05/03/16 11:23 05/03/16 11:23 05/03/16 11:23 05/03/16 11:23 General appearance: Present: A&O X 3, no acute distress. Absent: answers questions appropriately (refuses to answer most questions) - Head Head exam: Present: atraumatic, normocephalic - Eye Eye exam: Present: PERRL, conjuntiva pink, sclera anicteric Pupils: Present: PERRL - Neck Neck exam general surgery: Present: supple, trachea midline. Absent: lymphadenopathy - Respiratory Respiratory exam: Present: decreased breath sounds. Absent: accessory muscle use, rales, respiratory distress, rhonchi, wheezes - Cardiovascular Cardiovascular exam: Present: RRR, +S1, +S2. Absent: diastolic murmur, gallop, rubs, systolic murmur - GI/Abdominal GI/Abdominal exam: Present: distended, normal bowel sounds, soft, tenderness ( diffuse), no peritoneal signs - Extremities Exam Extremities exam: Present: warm, radial pulses palpable and symetrical. Absent : calf tenderness, cyanotic, pedal edema - Neurological Exam Neurological exam: Present: alert, CN II-XII intact, oriented X3, no focal deficits, strengths equal and symetr throughout. Absent: pronater drift, facial droop, speech deficit - Expanded Neurological Exam Neurological exam expanded: Present: protecting the airway Patient oriented to: Present: person, place, time Speech: Present: expressive aphasia (intentional) Neuro motor strength exam: LUE: 5, RUE: 5, LLE: 5, RLE: 5 Coma Scale Eye Opening: Spontaneous Coma Scale Motor Response: Obeys Commands Coma Scale Verbal Response: Oriented Coma Scale Total: 15 - Psychiatric Psychiatric exam: Present: flat affect. Absent: suicidal ideation - Skin Skin exam: Present: dry, intact, pallor, warm Internal Medicine: Result - Labs CBC & Chem 7: 05/02/16 04:00 05/03/16 03:52 Labs: BMP 05/03/16 03:52 Sodium 133 L Potassium 3.9 Chloride 103 Carbon Dioxide 22 BUN 21 H Creatinine 0.82 Glucose 122 H Calcium 8.7 - ABG Interpretation ABG results: PT/INR, D-dimer PT 11.7 Seconds (9.4-12.1) 04/29/16 21:15 - Impressions Impressions Chest/Abdomen X-ray 05/02/16 13:32 IMPRESSION: Nonobstructed bowel-gas pattern D/ / Joel Christie MD / Joel Christie MD Interpreting Provider: Joel Christie MD Consult Discharge Plan - Plan Referrals: Karla Eugene, SUPPLEMENTAL MANAGER [Advanced Practice Nurse] - 05/08/16 1:00 pm
[2016-05-03] MEDS: Ondansetron 4 MG/2 ML VIAL IVP PRN (20:54)
[2016-05-04] MEDS: Piperacillin/Tazobactam 3.375 GM in D5% in Water (Mini-Bag+) 100 ML IVPB SCH ×2 (02:19→11:51)
[2016-05-04] MEDS: *HR* Morphine 2 MG/ML SYRINGE IVP PRN (02:19)
[2016-05-04] MEDS: *HR* Enoxaparin 30 MG/0.3 ML SYRINGE SQ SCH (05:19)
[2016-05-04] MEDS: traMADol 50 MG TABLET PO PRN (07:48)
[2016-05-04] MEDS: Cholecalciferol (D-3) 1,000 UNIT TABLET PO SCH (07:48)
[2016-05-04] MEDS: Cyanocobalamin (B-12) 1,000 MCG TABLET PO SCH (07:48)
[2016-05-04] MEDS: amLODIPine 5 MG TABLET PO SCH (07:48)
[2016-05-04] MEDS: Isosorbide MONOnitrate (24 HR) 30 MG TAB.ER.24H PO SCH (07:48)
[2016-05-04] MEDS: Calcium 600 + Vit D PO SCH (07:48)
[2016-05-04] MEDS: Multivit/Ca/Min/Fe/FA 1 TAB TABLET PO SCH (07:48)
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
[2016-05-04 15:03] LABS: Basophils % 0.4 %; Eosinophils # 0.2 K/mcL (0.0-0.6); Eosinophils % 1.9 %; Hematocrit 29.6 % (35.3-44.9); Hemoglobin 9.6 g/dL (11.5-15.4); Immature Granulocytes % 0.5 % (0-4); Lymphocytes # 0.8 K/mcL (0.6-4.6); Mean Corpuscular HGB Conc 32.4 g/dL (31.6-35.5); Mean Corpuscular Hemoglobin 29.7 pg (28.0-33.3); Mean Corpuscular Volume 91.6 fL (83.0-100.0); Mean Platelet Volume 9.7 fL (9.4-12.4); Monocytes # 0.8 K/mcL (0.0-1.3); Monocytes % 9.8 %; Neutrophils # 6.5 K/mcL (1.6-8.9); Platelet Count 271 K/mcL (140-400); Red Blood Count 3.23 M/mcL (3.82-4.97); Segmented Neutrophils % 78.4 %
[2016-05-04] MEDS: Potassium Chloride 40 MEQ in D5% in 0.45% NACL 1,000 ML IVC SCH (16:25)
[2016-05-04 17:21] LABS: Alanine Aminotransferase 19 Units/L (0-55); Albumin 2.4 g/dL (3.5-5.0); Albumin/Globulin Ratio 0.6 (1.1-2.2); Alkaline Phosphatase 100 Units/L (38-126); Aspartate Amino Transferase 23 Units/L (5-34); BUN/Creatinine Ratio 23 (6-26); Bilirubin,Total 0.4 mg/dL (0.2-1.2); Blood Urea Nitrogen 23 mg/dL (7-20); Calcium 9.3 mg/dL (8.6-10.8); Carbon Dioxide 18 mEq/L (19-29); Chloride 104 mEq/L (98-109); Glucose 119 mg/dL (70-99); Osmolality,Calculated 273 (280-300); Potassium 4.7 mEq/L (3.5-4.5); Sodium 129 mEq/L (136-145); Total Protein 6.4 g/dL (6.0-8.3); eGFR For African Americans > 60 (> 60); eGFR For Non-African Americans 54 (> 60)
[2016-05-05] MEDS: Potassium Chloride 40 MEQ in D5% in 0.45% NACL 1,000 ML IVC SCH (05:05)
[2016-05-05] MEDS: *HR* Enoxaparin 30 MG/0.3 ML SYRINGE SQ SCH (05:05)
[2016-05-05 08:40] LABS: Hematocrit 30.2 % (35.3-44.9); Hemoglobin 9.7 g/dL (11.5-15.4); Mean Corpuscular HGB Conc 32.1 g/dL (31.6-35.5); Mean Corpuscular Volume 90.1 fL (83.0-100.0); Mean Platelet Volume 9.4 fL (9.4-12.4); Platelet Count 271 K/mcL (140-400); Red Blood Count 3.35 M/mcL (3.82-4.97); Red Cell Distribution Width 13.6 % (11.5-14.5)
[2016-05-05 08:53] LABS: BUN/Creatinine Ratio 23 (6-26); Blood Urea Nitrogen 17 mg/dL (7-20); Calcium 9.2 mg/dL (8.6-10.8); Carbon Dioxide 18 mEq/L (19-29); Chloride 104 mEq/L (98-109); Glucose 117 mg/dL (70-99); Magnesium 1.2 mg/dL (1.6-2.6); Osmolality,Calculated 273 (280-300); Potassium 4.3 mEq/L (3.5-4.5); Sodium 130 mEq/L (136-145); eGFR For African Americans > 60 (> 60); eGFR For Non-African Americans > 60 (> 60)
--- NOTE | 2016-05-05 09:01 | Internal Med Progress Note ---
Date of Encounter: 05/05/16 Time of Encounter: 08:30 - Assessment and plan (1) Hyponatremia Current Visit: Yes Status: Acute Assessment and plan: Persists. Osmolality is low as well. Will give small dose of Lasix today and recheck tomorrow. (2) Hypomagnesemia Current Visit: Yes Status: Acute Assessment and plan: Replace today. (3) Urinary tract infection Current Visit: Yes Status: Acute Assessment and plan: On abx coverage. Qualifiers: Urinary tract infection type: acute cystitis Hematuria presence: without hematuria Qualified Code(s): N30.00 - Acute cystitis without hematuria (4) Physical deconditioning Current Visit: Yes Status: Chronic Assessment and plan: Supportive care. (5) Severe depression Current Visit: Yes Status: Acute Assessment and plan: Awaiting acceptance to geropsych unit. (6) Anemia Current Visit: Yes Status: Chronic Assessment and plan: Hemoglobin is chronically low (8-9) consistent with chronic disease. No acute bleeding noted. No further work up needed. Qualifiers: Other causes of anemia: chronic disease, other Qualified Code(s): D63.8 - Anemia in other chronic diseases classified elsewhere (7) HTN (hypertension) Current Visit: Yes Status: Chronic Assessment and plan: Controlled. Qualifiers: Hypertension type: essential hypertension Qualified Code(s): I10 - Essential (primary) hypertension - Subjective Interval history: Ms. Barrett is currently admitted for electrolyte abnormalities as psychological issues. She remains moderate to high risk due to persistence of electrolyte issues and continued need for psychiatric intervention. Ms. Barrett did not really speak to me today. She did say her abdomen was painful but did not answer any other questions. She looked away from me most of the time and met my eyes only once. No fever or chills. No CP or SOB. No constipation noted. No other history obtainable. - Constitutional Vitals: Temp Pulse Resp BP Pulse Ox 97.9 F 90 17 154/74 97 05/05/16 07:15 05/05/16 07:15 05/05/16 07:15 05/05/16 07:15 05/05/16 07:15 General appearance: Present: A&O X 3, no acute distress, answers questions appropriately (refuses to answer most questions but when given enough time, she' ll answer at times) Exam: Seems to be tearful - looks away from me. Won't speak with me or met my eyes. - Head Head exam: Present: normocephalic - Eye Eye exam: Present: EOMI, conjuntiva pink - ENT ENT exam: Present: mucous membranes moist - Respiratory Respiratory exam: Present: CTAB. Absent: rales, rhonchi, wheezes - Cardiovascular Cardiovascular exam: Present: RRR. Absent: systolic murmur, tachycardia - GI/Abdominal GI/Abdominal exam: Present: soft. Absent: mass, tenderness - Extremities Exam Extremities exam: Present: warm. Absent: pedal edema, tenderness - Neurological Exam Neurological exam: Present: alert, oriented X3 - Psychiatric Psychiatric exam: Present: depressed, flat affect - Skin Skin exam: Present: dry, warm. Absent: rash Internal Medicine: Result - Labs CBC & Chem 7: 05/04/16 14:44 05/05/16 08:26 Labs: Short CBC 05/04/16 Range/Units 14:44 WBC 8.3 (4.3-11.1) K/mcL Hgb 9.6 L (11.5-15.4) g/dL Hct 29.6 L (35.3-44.9) % Plt Count 271 (140-400) K/mcL Neutrophils # 6.5 (1.6-8.9) K/mcL BMP 05/04/16 05/05/16 15:45 08:26 Sodium 129 L 130 L Potassium 4.7 H 4.3 Chloride 104 104 Carbon Dioxide 18 L 18 L BUN 23 H 17 Creatinine 0.98 0.74 Glucose 119 H 117 H Calcium 9.3 9.2 Liver Function 05/04/16 Range/Units 15:45 Total Bilirubin 0.4 (0.2-1.2) mg/dL AST 23 (5-34) Units/L ALT 19 (0-55) Units/L Alkaline Phosphatase 100 (38-126) Units/L Albumin 2.4 L (3.5-5.0) g/dL - ABG Interpretation ABG results: PT/INR, D-dimer PT 11.7 Seconds (9.4-12.1) 04/29/16 21:15 Consult Discharge Plan - Plan Referrals: Karla Eugene, [employer] [Advanced Practice Nurse] - 05/08/16 1:00 pm
[2016-05-05] MEDS ORDERED: Magnesium Sulfate 2 GM in D5% in Water 100 ML IV ONE (09:10)
[2016-05-05] MEDS ORDERED: Furosemide 20 MG/2 ML VIAL IVP ONE (09:10)
[2016-05-05] MEDS: Isosorbide MONOnitrate (24 HR) 30 MG TAB.ER.24H PO SCH (09:56)
[2016-05-05] MEDS: Cholecalciferol (D-3) 1,000 UNIT TABLET PO SCH (09:56)
[2016-05-05] MEDS: Cyanocobalamin (B-12) 1,000 MCG TABLET PO SCH (09:57)
[2016-05-05] MEDS: Calcium 600 + Vit D PO SCH (09:57)
[2016-05-05] MEDS: amLODIPine 5 MG TABLET PO SCH (09:57)
[2016-05-05] MEDS: Multivit/Ca/Min/Fe/FA 1 TAB TABLET PO SCH (09:57)
[2016-05-06 04:24] LABS: Hematocrit 28.8 % (35.3-44.9); Hemoglobin 9.4 g/dL (11.5-15.4); Mean Corpuscular HGB Conc 32.6 g/dL (31.6-35.5); Mean Corpuscular Hemoglobin 29.4 pg (28.0-33.3); Mean Platelet Volume 9.4 fL (9.4-12.4); Platelet Count 290 K/mcL (140-400); Red Cell Distribution Width 13.7 % (11.5-14.5)
[2016-05-06 04:53] LABS: BUN/Creatinine Ratio 32 (6-26); Blood Urea Nitrogen 23 mg/dL (7-20); Carbon Dioxide 20 mEq/L (19-29); Chloride 104 mEq/L (98-109); Glucose 108 mg/dL (70-99); Magnesium 1.9 mg/dL (1.6-2.6); Osmolality,Calculated 280 (280-300); Potassium 4.5 mEq/L (3.5-4.5); Sodium 133 mEq/L (136-145); eGFR For African Americans > 60 (> 60); eGFR For Non-African Americans > 60 (> 60)
[2016-05-06] MEDS: *HR* Enoxaparin 30 MG/0.3 ML SYRINGE SQ SCH (05:36)
[2016-05-06] MEDS: Calcium 600 + Vit D PO SCH (09:41)
[2016-05-06] MEDS: Cholecalciferol (D-3) 1,000 UNIT TABLET PO SCH (09:41)
[2016-05-06] MEDS: Multivit/Ca/Min/Fe/FA 1 TAB TABLET PO SCH (09:41)
[2016-05-06] MEDS: Cyanocobalamin (B-12) 1,000 MCG TABLET PO SCH (09:41)
[2016-05-06] MEDS: amLODIPine 5 MG TABLET PO SCH (09:41)
[2016-05-06] MEDS: Isosorbide MONOnitrate (24 HR) 30 MG TAB.ER.24H PO SCH (09:41)
--- NOTE | 2016-05-06 16:28 | Internal Med Progress Note ---
Date of Encounter: 05/06/16 Time of Encounter: 07:15 - Assessment and plan (1) Urinary tract infection Current Visit: Yes Status: Acute Assessment and plan: Due to strep viridans. On IV abx. Can change to PO soon or at discharge. Qualifiers: Urinary tract infection type: acute cystitis Hematuria presence: without hematuria Qualified Code(s): N30.00 - Acute cystitis without hematuria (2) Streptococcus viridans infection Current Visit: Yes Status: Acute Assessment and plan: UTI (3) Hyponatremia Current Visit: Yes Status: Acute Assessment and plan: Persists today still though is somewhat better. Calculated serum osm now normal. Will recheck tomorrow if not discharged to psych unit. Pt medically clear for discharge today. (4) Hypomagnesemia Current Visit: Yes Status: Resolved Assessment and plan: Resolved. (5) Physical deconditioning Current Visit: Yes Status: Chronic Assessment and plan: Supportive care. (6) Severe depression Current Visit: Yes Status: Acute Assessment and plan: Awaiting acceptance to geropsych unit. (7) Anemia Current Visit: Yes Status: Chronic Assessment and plan: Chronic low hemoglobin most likely due to chronic disease. Continue supportive care. Qualifiers: Other causes of anemia: chronic disease, other Qualified Code(s): D63.8 - Anemia in other chronic diseases classified elsewhere (8) HTN (hypertension) Current Visit: Yes Status: Chronic Assessment and plan: Controlled. Qualifiers: Hypertension type: essential hypertension Qualified Code(s): I10 - Essential (primary) hypertension - Subjective Interval history: Ms. Barrett is currently admitted for electrolyte abnormalities as psychological issues. She remains moderate to high risk due to persistence of electrolyte issues and continued need for psychiatric intervention. Ms. Barrett is not talking to me. She had no issues overnight. No CP or SOB noted. No other history is obtainable. - Constitutional Vitals: Temp Pulse Resp BP Pulse Ox 97.6 F 79 15 157/71 95 05/06/16 15:21 05/06/16 15:21 05/06/16 15:21 05/06/16 15:21 05/06/16 15:21 General appearance: Present: no acute distress - Head Head exam: Present: normocephalic - Eye Eye exam: Present: conjuntiva pink - ENT ENT exam: Present: mucous membranes dry - Respiratory Respiratory exam: Present: decreased breath sounds, CTAB - Cardiovascular Cardiovascular exam: Present: RRR. Absent: tachycardia - GI/Abdominal GI/Abdominal exam: Present: normal bowel sounds, soft - Extremities Exam Extremities exam: Present: warm. Absent: pedal edema - Neurological Exam Neurological exam: Present: alert, no focal deficits - Psychiatric Psychiatric exam: Present: flat affect - Skin Skin exam: Present: warm. Absent: rash Internal Medicine: Result - Labs CBC & Chem 7: 05/06/16 03:10 05/06/16 03:10 Labs: Short CBC 05/06/16 Range/Units 03:10 WBC 6.1 (4.3-11.1) K/mcL Hgb 9.4 L (11.5-15.4) g/dL Hct 28.8 L (35.3-44.9) % Plt Count 290 (140-400) K/mcL BMP 05/06/16 03:10 Sodium 133 L Potassium 4.5 Chloride 104 Carbon Dioxide 20 BUN 23 H Creatinine 0.71 Glucose 108 H Calcium 9.0 - ABG Interpretation ABG results: PT/INR, D-dimer PT 11.7 Seconds (9.4-12.1) 04/29/16 21:15 Consult Discharge Plan - Plan Referrals: Karla Eugene, S[employer]IOR SECURITY ANALYST [Advanced Practice Nurse] - 05/08/16 1:00 pm
[2016-05-07 02:57] LABS: BUN/Creatinine Ratio 32 (6-26); Blood Urea Nitrogen 22 mg/dL (7-20); Calcium 9.3 mg/dL (8.6-10.8); Carbon Dioxide 22 mEq/L (19-29); Chloride 102 mEq/L (98-109); Glucose 106 mg/dL (70-99); Osmolality,Calculated 280 (280-300); Potassium 4.2 mEq/L (3.5-4.5); Sodium 133 mEq/L (136-145); eGFR For African Americans > 60 (> 60); eGFR For Non-African Americans > 60 (> 60)
[2016-05-07] MEDS: *HR* Enoxaparin 30 MG/0.3 ML SYRINGE SQ SCH (05:42)
[2016-05-07] MEDS: Multivit/Ca/Min/Fe/FA 1 TAB TABLET PO SCH (08:17)
[2016-05-07] MEDS: Isosorbide MONOnitrate (24 HR) 30 MG TAB.ER.24H PO SCH (08:18)
[2016-05-07] MEDS: amLODIPine 5 MG TABLET PO SCH (08:18)
[2016-05-07] MEDS: Cholecalciferol (D-3) 1,000 UNIT TABLET PO SCH (08:18)
[2016-05-07] MEDS: Cyanocobalamin (B-12) 1,000 MCG TABLET PO SCH (08:18)
[2016-05-07] MEDS: traMADol 50 MG TABLET PO PRN ×2 (08:32→19:41)
[2016-05-07] MEDS: Calcium 600 + Vit D PO SCH (08:39)
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
[2016-05-08] MEDS: *HR* Enoxaparin 30 MG/0.3 ML SYRINGE SQ SCH (06:25)
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
[2016-05-08] MEDS: Isosorbide MONOnitrate (24 HR) 30 MG TAB.ER.24H PO SCH (10:46)
[2016-05-08] MEDS: Cyanocobalamin (B-12) 1,000 MCG TABLET PO SCH (10:46)
[2016-05-08] MEDS: Multivit/Ca/Min/Fe/FA 1 TAB TABLET PO SCH (10:46)
[2016-05-08] MEDS: Cholecalciferol (D-3) 1,000 UNIT TABLET PO SCH (10:46)
[2016-05-08] MEDS: amLODIPine 5 MG TABLET PO SCH (10:46)
[2016-05-08 10:47] VITALS: BP 126/56
[2016-05-08] MEDS: Calcium 600 + Vit D PO SCH (10:47)
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
== END 2016-05-08 16:08 | DRG 689 ==
LOC: 3BNU 21:01 → EMEROO 21:01 → 3BNU 04-30 00:54 → SUATTDRO 05-01 11:53
PROVIDERS: ADMIT Family Medicine; ATTEND Nurse Practitioner Family

== ENCOUNTER 2016-07-25 10:27 | Inpatient (IN) ==
[2016-07-25] MEDS ORDERED: 0.9 % Sodium Chloride 1,000 ML IVC ONE (11:45)
[2016-07-25 12:12] LABS: Basophils % 0.5 %; Hematocrit 36.3 % (35.3-44.9); Hemoglobin 11.7 g/dL (11.5-15.4); Immature Granulocytes % 0.5 % (0-4); Lymphocytes # 0.9 K/mcL (0.6-4.6); Lymphocytes % 9.7 %; Mean Corpuscular HGB Conc 32.2 g/dL (31.6-35.5); Mean Corpuscular Hemoglobin 29.3 pg (28.0-33.3); Mean Platelet Volume 8.5 fL (9.4-12.4); Monocytes # 0.2 K/mcL (0.0-1.3); Monocytes % 2.6 %; Neutrophils # 7.6 K/mcL (1.6-8.9); Platelet Count 312 K/mcL (140-400); Red Blood Count 3.99 M/mcL (3.82-4.97); Red Cell Distribution Width 15.1 % (11.5-14.5); Segmented Neutrophils % 86.7 %
[2016-07-25 12:22] LABS: INR 1.1; Prothrombin Time 12.1 Seconds (9.4-12.1)
[2016-07-25 12:24] LABS: Activated Partial Thrombo Time 28.7 Seconds (26.0-36.0)
[2016-07-25 12:34] LABS: Albumin/Globulin Ratio 1.1 (1.1-2.2); Bilirubin,Direct 0.2 mg/dL (0.0-0.5); Bilirubin,Indirect 0.4 mg/dL (0.0-1.2); Bilirubin,Total 0.6 mg/dL (0.2-1.2); Calcium 10.2 mg/dL (8.6-10.8); Globulin 3.8 g/dL (2.4-3.5); Magnesium 1.7 mg/dL (1.6-2.6); Phosphorous 3.6 mg/dL (2.3-4.7); Potassium 3.3 mEq/L (3.5-4.5); Total Protein 7.8 g/dL (6.0-8.3)
--- NOTE | 2016-07-25 12:59 | Emergency Department Note ---
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 Insulation Manager states that patient has been experinecing chillls/rigor for the past 2-3 days in addition to fever that have been 100.4Tmax. Ronnell has presented in a simliar way with UTI in the past andhas been hospitalized due to it. Historain denies nausea, vomiting, chest pain, shortness of breath. But patient states that she is experiencing increased lower abdominal discomfort without radiation. Historian denies vaginal bleeding or discharge. she also has decreased oral intake and appears to be dehydrated. nthing makes it better or worse. - Related Data Home Medications Medication Instructions Recorded Confirmed Amlodipine [Norvasc] 10 mg PO DAILY 11/30/14 07/25/16 Simvastatin [Zocor] 20 mg PO QPM 11/30/14 07/25/16 Alendronate Sodium [Fosamax] 70 mg PO QWEEK 09/01/15 07/25/16 Calcium Carbonate/Vitamin D3 1 each PO DAILY 09/01/15 07/25/16 [Calcium 600 + Vit D Tablet] Cholecalciferol (D-3) [Vitamin D] 1,000 unit PO DAILY 09/01/15 07/25/16 Cyanocobalamin (Vitamin B-12) 1,000 mcg SL DAILY 09/01/15 07/25/16 [Vitamin B-12] Isosorbide DInitrate [Isosorbide 10 mg PO BID 04/30/16 07/25/16 Dinitrate] BuPROPion [Wellbutrin] 75 mg PO DAILY 07/25/16 07/25/16 Docusate [Colace] 100 mg PO DAILY PRN 07/25/16 07/25/16 Donepezil HCl [Donepezil HCl Odt] 10 mg PO HS 07/25/16 07/25/16 Magnesium Oxide [Magnesium] 400 mg PO DAILY 07/25/16 07/25/16 Memantine [Namenda] 5 mg PO DAILY 07/25/16 07/25/16 Polyethylene Glycol 3350 17 gm PO DAILY PRN 07/25/16 07/25/16 [Smoothlax] RisperiDONE [RisperDAL] 0.25 mg PO DAILY 07/25/16 07/25/16 Sertraline [Zoloft] 25 mg PO DAILY 07/25/16 07/25/16 TraZODone 25 mg PO HS 07/25/16 07/25/16 Allergies Allergy/AdvReac Type Severity Reaction Status Date / Time Oxycodone [From Percocet] Allergy hallucinati Verified 07/25/16 10:59 ons prednisone Allergy lip Verified 07/25/16 10:59 swelling Sulfa (Sulfonamide Allergy Rash Verified 07/25/16 10:59 Antibiotics) acetaminophen [From [place]] AdvReac Confusion Verified 07/25/16 10:59 gabapentin AdvReac Confusion Verified 07/25/16 10:59 hydrocodone [From [place]] AdvReac Confusion Verified 07/25/16 10:59 meloxicam [From Mobic] AdvReac leg Verified 07/25/16 10:59 swelling Limitations: ROS unobtainable due to patients medical condition Constitutional: Reports: fever, chills, weakness Eyes: Denies: eye pain, eye discharge, vision change ENT ED: Reports: congestion. Denies: ear pain, throat pain, dental pain, dysphagia Cardiovascular: Denies: chest pain, palpitations, dyspnea on exertion, edema, syncope Respiratory: Denies: cough, dyspnea, wheezes, hemoptysis, stridor Gastrointestinal: Reports: abdominal pain. Denies: nausea, vomiting, diarrhea, constipation, hematemesis, melena, hematochezia Genitourinary: Denies: dysuria, frequency, hematuria, discharge Musculoskeletal: Denies: back pain, neck pain, arthralgia, myalgia Integumentary: Denies: rash, abrasion, lesions Neurological: Denies: headache, weakness, numbness, paresthesias, confusion, abnormal gait, vertigo Fever PMH - Past Medical History Medical history: Reports: arthritis, dementia, hypertension, renal disease, other Surgical history: Reports: appendectomy, hysterectomy Psychiatric history: Reports: anxiety, depression DROP WIRE ALINER history: Reports: no DROP WIRE ALINER history - Social History Smoking Status: Never smoker Alcohol use: Reports: none Drug use: Reports: none Physical Exam - General Limitations: age General appearance: alert, in no apparent distress - Head Head exam: atraumatic, normocephalic, normal inspection - Eye Eye exam: Present: normal appearance, PERRL, EOMI - Expanded Eye Exam Pupils: Left: reactive - ENT ENT exam: normal exam, normal oropharynx, mucous membranes moist - Expanded ENT Exam External ear exam: Present: normal external inspection Mouth exam: Present: normal external inspection Teeth exam: Present: normal inspection Throat exam: Present: normal inspection - Neck Neck exam: Present: normal inspection, full ROM, trachea midline - Chest Chest inspection: Present: normal inspection, symmetric chest wall rise - Respiratory Respiratory exam: Present: normal lung sounds bilaterally - Cardiovascular Cardiovascular exam: Present: regular rate, normal rhythm, normal heart sounds - Abdominal Exam Abdominal exam: Present: soft, tenderness. Absent: Non-Tender, distention, guarding, rebound, rigidity Abdominal tenderness: Present: RLQ, LLQ, mild - Extremities Exam Extremities exam: Present: normal inspection, full ROM. Absent: tenderness, pedal edema - Expanded Upper Extremity Exam Shoulder exam: Present: normal inspection, full ROM Arm exam: Present: normal inspection, full ROM Elbow exam: Present: normal inspection, full ROM Forearm/Wrist exam: Present: normal inspection, full ROM Hand exam: Present: normal inspection, full ROM Vascular exam: Normal: capillary refill, radial pulse - Expanded Lower Extremity Exam Hip/Pelvis exam: Present: normal inspection, full ROM Upper leg exam: Present: normal inspection, full ROM Knee exam: Present: normal inspection, full ROM Lower leg exam: Present: normal inspection, full ROM Ankle exam: Present: normal inspection, full ROM Foot/toe exam: Present: normal inspection, full ROM Neurovascular/Tendon exam: Absent: motor deficit, sensory deficit, tendon deficit - Back Exam Back exam: Present: normal inspection, full ROM. Absent: tenderness - Neurological Exam Neurological exam: Present: alert, oriented X3 - Expanded Neurological Exam Patient oriented to: Present: person, place, time Coma Scale Eye Opening: Spontaneous Coma Scale Motor Response: Obeys Commands Coma Scale Verbal Response: Oriented Coma Scale Total: 15 - Psychiatric Psychiatric exam: Present: normal affect, normal mood - Skin Skin exam: Present: warm, dry, intact, normal color Course Course Narrative: we will do a sepsis workup on patient and rehydrate with IVF and look for a source of infection. Otherwise stable. - Reevaluation(s) Reevaluation #1: patient and family updated and they are agreeable to plan. Time: 17:29 - Consultations Consultation #1: discussed case with Dr. Richardson and she has accepted patient for admission. Time: 17:28 Vital Signs Temperature 98.7 F 07/25/16 10:56 Pulse Rate 87 07/25/16 10:56 Respiratory Rate 16 07/25/16 10:56 Blood Pressure 186/90 07/25/16 10:56 O2 Sat by Pulse Oximetry 95 07/25/16 10:56 Temperature 98.8 F 07/25/16 14:30 Pulse Rate 70 07/25/16 17:00 Respiratory Rate 18 07/25/16 17:00 Blood Pressure 163/69 07/25/16 17:00 O2 Sat by Pulse Oximetry 99 07/25/16 17:00 Oxygen Delivery Oxygen Delivery Room Air Fever - Lab Data Result diagrams: 07/25/16 12:07 07/25/16 12:07 Lab Results 07/25/16 07/25/16 07/25/16 Range/Units 12:07 12:07 12:07 WBC 8.8 (4.3-11.1) K/mcL RBC 3.99 (3.82-4.97) M/mcL Hgb 11.7 (11.5-15.4) g/dL Hct 36.3 (35.3-44.9) % MCV 91.0 (83.0-100.0) fL MCH 29.3 (28.0-33.3) pg MCHC 32.2 (31.6-35.5) g/dL RDW 15.1 H (11.5-14.5) % Plt Count 312 (140-400) K/mcL MPV 8.5 L (9.4-12.4) fL Immature Gran % 0.5 (0-4) % Seg Neutrophils % 86.7 % Lymphocytes % 9.7 % Monocytes % 2.6 % Eosinophils % 0.0 % Basophils % 0.5 % Neutrophils # 7.6 (1.6-8.9) K/mcL Lymphocytes # 0.9 (0.6-4.6) K/mcL Monocytes # 0.2 (0.0-1.3) K/mcL Eosinophils # 0.0 (0.0-0.6) K/mcL Basophils # 0.0 (0.0-0.2) K/mcL PT 12.1 (9.4-12.1) Seconds INR 1.1 APTT 28.7 (26.0-36.0) Seconds Sodium 142 (136-145) mEq/L Potassium 3.3 L (3.5-4.5) mEq/L Chloride 107 (98-109) mEq/L Carbon Dioxide 24 (19-29) mEq/L BUN 35 H (7-20) mg/dL Creatinine 1.14 H (0.57-1.11) mg/dL Est GFR ( Amer) 55 L (> 60) Est GFR (Non-Af Amer) 45 L (> 60) BUN/Creatinine Ratio 31 H (6-26) Glucose 122 H (70-99) mg/dL Calculated Osmolality 303 H (280-300) Lactic Acid (0.5-2.2) mmol/L Calcium 10.2 (8.6-10.8) mg/dL Phosphorus 3.6 (2.3-4.7) mg/dL Magnesium 1.7 (1.6-2.6) mg/dL Total Bilirubin 0.6 (0.2-1.2) mg/dL Direct Bilirubin 0.2 (0.0-0.5) mg/dL Indirect Bilirubin 0.4 (0.0-1.2) mg/dL AST 15 (5-34) Units/L ALT 12 (0-55) Units/L Alkaline Phosphatase 55 (38-126) Units/L Troponin I (0-0.03) ng/mL Serum Total Protein 7.8 (6.0-8.3) g/dL Albumin 4.0 (3.5-5.0) g/dL Globulin 3.8 H (2.4-3.5) g/dL Albumin/Globulin Ratio 1.1 (1.1-2.2) Lipase 14 (8-78) Units/L Urine Color (Yellow) Urine Clarity (Clear) Urine pH (5.0-8.0) pH Units Ur Specific [place] (1.010-1.025) Urine Protein (Neg-Trace) mg/dL Urine Glucose (UA) (Normal) mg/dL Urine Ketones (Negative) mg/dL Urine Blood (Negative) Urine Nitrite (Negative) Urine Bilirubin (Negative) Urine Urobilinogen (Normal) mg/dL Ur Leukocyte Esterase (Negative) Urine Microscopic RBC (0-3) per hpf Urine Microscopic WBC (0-3) per hpf Ur Squamous Epith Cells (None-Few) per lpf Urine Bacteria (None-Few) per hpf Hyaline Casts (None-Few) per lpf Ur Culture Indicated? (NO) 07/25/16 07/25/16 07/25/16 Range/Units 12:07 12:07 14:07 WBC (4.3-11.1) K/mcL RBC (3.82-4.97) M/mcL Hgb (11.5-15.4) g/dL Hct (35.3-44.9) % MCV (83.0-100.0) fL MCH (28.0-33.3) pg MCHC (31.6-35.5) g/dL RDW (11.5-14.5) % Plt Count (140-400) K/mcL MPV (9.4-12.4) fL Immature Gran % (0-4) % Seg Neutrophils % % Lymphocytes % % Monocytes % % Eosinophils % % Basophils % % Neutrophils # (1.6-8.9) K/mcL Lymphocytes # (0.6-4.6) K/mcL Monocytes # (0.0-1.3) K/mcL Eosinophils # (0.0-0.6) K/mcL Basophils # (0.0-0.2) K/mcL PT (9.4-12.1) Seconds INR APTT (26.0-36.0) Seconds Sodium (136-145) mEq/L Potassium (3.5-4.5) mEq/L Chloride (98-109) mEq/L Carbon Dioxide (19-29) mEq/L BUN (7-20) mg/dL Creatinine (0.57-1.11) mg/dL Est GFR ( Amer) (> 60) Est GFR (Non-Af Amer) (> 60) BUN/Creatinine Ratio (6-26) Glucose (70-99) mg/dL Calculated Osmolality (280-300) Lactic Acid 0.9 (0.5-2.2) mmol/L Calcium (8.6-10.8) mg/dL Phosphorus (2.3-4.7) mg/dL Magnesium (1.6-2.6) mg/dL Total Bilirubin (0.2-1.2) mg/dL Direct Bilirubin (0.0-0.5) mg/dL Indirect Bilirubin (0.0-1.2) mg/dL AST (5-34) Units/L ALT (0-55) Units/L Alkaline Phosphatase (38-126) Units/L Troponin I 0.02 (0-0.03) ng/mL Serum Total Protein (6.0-8.3) g/dL Albumin (3.5-5.0) g/dL Globulin (2.4-3.5) g/dL Albumin/Globulin Ratio (1.1-2.2) Lipase (8-78) Units/L Urine Color Yellow (Yellow) Urine Clarity Clear (Clear) Urine pH 6.5 (5.0-8.0) pH Units Ur Specific [place] 1.015 (1.010-1.025) Urine Protein >=300 H (Neg-Trace) mg/dL Urine Glucose (UA) Normal (Normal) mg/dL Urine Ketones Negative (Negative) mg/dL Urine Blood Small H (Negative) Urine Nitrite Negative (Negative) Urine Bilirubin Negative (Negative) Urine Urobilinogen Normal (Normal) mg/dL Ur Leukocyte Esterase Negative (Negative) Urine Microscopic RBC 3-5 H (0-3) per hpf Urine Microscopic WBC 0-3 (0-3) per hpf Ur Squamous Epith Cells Many H (None-Few) per lpf Urine Bacteria None Seen (None-Few) per hpf Hyaline Casts None Seen (None-Few) per lpf Ur Culture Indicated? NO (NO) 07/25/16 Range/Units 14:11 WBC (4.3-11.1) K/mcL RBC (3.82-4.97) M/mcL Hgb (11.5-15.4) g/dL Hct (35.3-44.9) % MCV (83.0-100.0) fL MCH (28.0-33.3) pg MCHC (31.6-35.5) g/dL RDW (11.5-14.5) % Plt Count (140-400) K/mcL MPV (9.4-12.4) fL Immature Gran % (0-4) % Seg Neutrophils % % Lymphocytes % % Monocytes % % Eosinophils % % Basophils % % Neutrophils # (1.6-8.9) K/mcL Lymphocytes # (0.6-4.6) K/mcL Monocytes # (0.0-1.3) K/mcL Eosinophils # (0.0-0.6) K/mcL Basophils # (0.0-0.2) K/mcL PT (9.4-12.1) Seconds INR APTT (26.0-36.0) Seconds Sodium (136-145) mEq/L Potassium (3.5-4.5) mEq/L Chloride (98-109) mEq/L Carbon Dioxide (19-29) mEq/L BUN (7-20) mg/dL Creatinine (0.57-1.11) mg/dL Est GFR ( Amer) (> 60) Est GFR (Non-Af Amer) (> 60) BUN/Creatinine Ratio (6-26) Glucose (70-99) mg/dL Calculated Osmolality (280-300) Lactic Acid 0.8 (0.5-2.2) mmol/L Calcium (8.6-10.8) mg/dL Phosphorus (2.3-4.7) mg/dL Magnesium (1.6-2.6) mg/dL Total Bilirubin (0.2-1.2) mg/dL Direct Bilirubin (0.0-0.5) mg/dL Indirect Bilirubin (0.0-1.2) mg/dL AST (5-34) Units/L ALT (0-55) Units/L Alkaline Phosphatase (38-126) Units/L Troponin I (0-0.03) ng/mL Serum Total Protein (6.0-8.3) g/dL Albumin (3.5-5.0) g/dL Globulin (2.4-3.5) g/dL Albumin/Globulin Ratio (1.1-2.2) Lipase (8-78) Units/L Urine Color (Yellow) Urine Clarity (Clear) Urine pH (5.0-8.0) pH Units Ur Specific [place] (1.010-1.025) Urine Protein (Neg-Trace) mg/dL Urine Glucose (UA) (Normal) mg/dL Urine Ketones (Negative) mg/dL Urine Blood (Negative) Urine Nitrite (Negative) Urine Bilirubin (Negative) Urine Urobilinogen (Normal) mg/dL Ur Leukocyte Esterase (Negative) Urine Microscopic RBC (0-3) per hpf Urine Microscopic WBC (0-3) per hpf Ur Squamous Epith Cells (None-Few) per lpf Urine Bacteria (None-Few) per hpf Hyaline Casts (None-Few) per lpf Ur Culture Indicated? (NO) - EKG Data EKG attestation: Yes I reviewed and interpreted this EKG. EKG results narrative: NSR with rate of 79. NO STEMI. normal intervals. no old EKG. 1156 Attestation Statement - Attestation Attestation: I examined this patient and my medical decision-making was reviewed with the PAYMENT PROCESSOR/PA/Advanced Practice Nurse/Resident Physician. I agree with the documented findings, disposition and treatment plan as described except to the extent set forth below. Patient presents to the emergency department with fever or shaking altered mental status. Family states that her pupils just look off. She normally does not talk much. She is making sense when she does talk. Had a fever of 100.4. On exam she is laying in bed. She makes eye contact and answers appropriately. Pleasantly demented. Abdomen soft. Her lungs are clear. Plan. Altered mental status/septic workup.
[2016-07-25] MEDS ORDERED: *HR* Labetalol 20 MG/4 ML SYRINGE IVP ONE (13:40)
[2016-07-25 15:01] LABS: Bacteria,Urine None Seen per hpf (None-Few); Bilirubin,Urine Negative (Negative); Blood,Urine Small (Negative); Clarity,Urine Clear (Clear); Color,Urine Yellow (Yellow); Glucose,Urine (UA) Normal (Normal); Hyaline Casts,Urine None Seen per lpf (None-Few); Ketones,Urine Negative (Negative); Leukocyte Esterase,Urine Negative (Negative); Nitrite,Urine Negative (Negative); PH,Urine 6.5 pH Units (5.0-8.0); Protein,Urine >=300 mg/dL (Neg-Trace); Specific Gravity,Urine 1.015 (1.010-1.025); Squamous Epithelial Cell,Urine Many per lpf (None-Few); Urobilinogen,Urine Normal (Normal); WBC,Urine 0-3 per hpf (0-3)
[2016-07-25] MEDS ORDERED: Ibuprofen 400 MG TABLET PO PRN (22:48)
[2016-07-25] MEDS ORDERED: Ondansetron 4 MG/2 ML VIAL IVP PRN (22:48)
[2016-07-25] MEDS ORDERED: *HR* Morphine 2 MG/ML SYRINGE IVP PRN (22:48)
[2016-07-25] MEDS ORDERED: Naloxone 0.4 MG/ML INJ IVP PRN (22:48)
[2016-07-25] MEDS ORDERED: Benzonatate 100 MG CAPSULE PO PRN (22:48)
[2016-07-25] MEDS ORDERED: 0.9 % Sodium Chloride 500 ML IVC ONE (22:59)
[2016-07-25] MEDS ORDERED: Piperacillin/Tazobactam 3.375 GM in D5% in Water (Mini-Bag+) 100 ML IVPB SCH (23:00)
[2016-07-25] MEDS ORDERED: Potassium Chloride Elixir 20 MEQ/15 ML UDC PO ONE (23:02)
--- NOTE | 2016-07-25 23:05 | Internal Med History&Physical ---
Date of Encounter: 07/25/16 Time of Encounter: 23:02 Assessment and Plan (1) Acute kidney injury superimposed on chronic kidney disease Current visit: Yes Status: Acute . (2) Hypertensive encephalopathy Current visit: Yes Status: Acute . (3) Altered mental status Current visit: Yes Status: Acute . Qualifiers: Altered mental status type: disorientation Qualified Code(s): R41.0 - Disorientation, unspecified (4) Encephalopathy acute Current visit: Yes Status: Acute . (5) Urinary tract infection Current visit: Yes Status: Acute . 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 (7) Frail elderly Current visit: Yes Status: Chronic . Internal Medicine - H&P: HPI Chief complaint: Confusion. Fever. Flulike illness. Admitted From: Emergency Dept Plans for Post Hospital Care: Home History of present illness: Ms. Barrett is a 86 year old female admitted to [facility] through the emergency department when she was with complaints of flulike illness , fever and mental status alterations. The patient has advanced dementia and presented with her caregiver at the bedside who served as primary historian. The patient had a 3 days illness associated with chills and rigors and fever and depending confusion. Oral intake also has declined for both solids and liquids. Omth-ymi-npaikaj treatments for her symptoms were unaffected. Symptoms reminiscent of prior episodes of UTI but there was no evidence for dysuria frequency discharge hematuria. There was some report of lower abdominal discomfort. There is no report of chest pain nor upper or lower respiratory complaints except for some head congestion. Initial vital signs were stable. CBC with differential coagulation profile and chemistries were benign. Comprehensive chemistry did note a potassium of 3.3. Creatinine 1.14 with BUN 35 GFR 45. Glucose 122 osmolality 303. Lipase normal at 14. Lactic acid 0.9 troponin 0.02. Urinalysis showed large protein and small blood. 5 RBC. 3 WBC. Many epithelial cells. CT head scan and portable chest x-ray demonstrated no evidence of acute or active process.. EKG demonstrated normal sinus rhythm with no acute changes. Preliminary impression suggested acute febrile illness consistent with a viral source. Acute atypical upper or lower respiratory infection cannot be ruled out at this time. SIRS/sepsis criteria not fulfilled at admission. Urinary sediment is not the suspicious for acute infection at this time. The patient is dehydrated. With modest acute kidney injury on chronic kidney disease stage III noted. Workup and treatments will proceed comprehensively. Cumulative laboratory and radiographic data base was considered and discussed. Consultative opinions will be sought as clinical circumstances justify. Given the patient's presenting concerns, past medical history, clinical findings and symptoms, she is admitted at this time to undergo further evaluation and disposition. Orders written. Past Med Surg Social Fam HX - Past Medical History Source: old records reviewed Medical history: arthritis, coronary artery disease, dementia, hyperlipidemia, hypertension, osteoporosis (Vitamin D deficiency.), renal disease (CKD III.), other (Iron deficiency anemia. Chronic musculoskeletal pain. Gout. Pressure ulcers sacral region history.) Psychiatric history: anxiety, depression, other - Past Surgical History Surgical History: appendectomy, hysterectomy, other - Social History Smoking Status: Never smoker Smokeless Tobacco Status: No Alcohol use: none Drug use: none Occupational status: retired Current living situation: Home, With Family Activity Level: Independent ambulation, Mostly sedentary Recent Out of Country Travel Within the Last 8 Weeks: No Exposure or Possible Exposure to Illness During Travel: No - Family History Mother History Unknown: Yes Family Member Ethnicity: Non- Living Status: Hx Family Cardiac Disorders: No Hx Family Respiratory Disorders: No Hx Family Cancer: No Hx Family GI Disorders: No Hx Family Endocrine Disorder: No Hx Family Neuromuscular Disorders: No Hx Family Neurologic Disorders: Yes Hx Family HEENT Disorders: No Hx Family Autoimmune Disorders: Yes Internal Medicine - H&P: Meds Amlodipine [Norvasc] 10 mg PO DAILY 11/30/14 [History] Simvastatin [Zocor] 20 mg PO QPM 11/30/14 [History] Alendronate Sodium [Fosamax] 70 mg PO QWEEK 09/01/15 [History] Calcium Carbonate/Vitamin D3 [Calcium 600 + Vit D Tablet] 1 each PO DAILY [History] Cholecalciferol (D-3) [Vitamin D] 1,000 unit PO DAILY 09/01/15 [History] Cyanocobalamin (Vitamin B-12) [Vitamin B-12] 1,000 mcg SL DAILY 09/01/15 [ History] Isosorbide DInitrate [Isosorbide Dinitrate] 10 mg PO BID 04/30/16 [History] BuPROPion [Wellbutrin] 75 mg PO DAILY 07/25/16 [History] Docusate [Colace] 100 mg PO DAILY PRN 07/25/16 [History] Donepezil HCl [Donepezil HCl Odt] 10 mg PO HS 07/25/16 [History] Magnesium Oxide [Magnesium] 400 mg PO DAILY 07/25/16 [History] Memantine [Namenda] 5 mg PO DAILY 07/25/16 [History] Polyethylene Glycol 3350 [Smoothlax] 17 gm PO DAILY PRN 07/25/16 [History] RisperiDONE [RisperDAL] 0.25 mg PO DAILY 07/25/16 [History] Sertraline [Zoloft] 25 mg PO DAILY 07/25/16 [History] TraZODone 25 mg PO HS 07/25/16 [History] Allergies Oxycodone [From Percocet] Allergy (Verified 07/25/16 10:59) hallucinations prednisone Allergy (Verified 07/25/16 10:59) lip swelling Sulfa (Sulfonamide Antibiotics) Allergy (Verified 07/25/16 10:59) Rash acetaminophen [From [place]] Adverse Reaction (Verified 07/25/16 10:59) Confusion gabapentin Adverse Reaction (Verified 07/25/16 10:59) Confusion hydrocodone [From [place]] Adverse Reaction (Verified 07/25/16 10:59) Confusion meloxicam [From Mobic] Adverse Reaction (Verified 07/25/16 10:59) leg swelling ROS unobtainable: due to mental status All Systems PM: A 10-system review of systems was performed and is negative for pertinent findings except as documented above in the HPI. The patient is not considered a story and current circumstances and events due to underlying dementia with acute encephalopathy due to current illness. Details provided by family member , collected from medical records and ED staff triage. Patient Problems (Last Updated 07/25/16 @ 23:07 by Neal Murry MD) Anemia (Chronic Medical) D64.9 Iron deficiency (Chronic Medical) E61.1 Anemia, iron deficiency (Chronic Medical) D50.9 Altered mental status (Acute Medical) R41.82 Hyponatremia (Chronic Medical) E87.1 HTN (hypertension) (Chronic Medical) I10 Hypokalemia (Resolved Medical) E87.6 Hypomagnesemia (Resolved Medical) E83.42 DVT prophylaxis (Acute Medical) [id number] Counseling regarding goals of care (Acute Medical) Z71.89 Constipation by delayed colonic transit (Resolved Medical) K59.01 Encephalopathy acute (Acute Medical) G93.40 Weight loss, unintentional (Acute Medical) R63.4 Pressure ulcer of coccygeal region (Chronic Medical) L89.159 Physical deconditioning (Chronic Medical) R53.81 Altered mental status (Acute Medical) R41.82 Urinary tract infection (Acute Medical) N39.0 SBO (small bowel obstruction) (Resolved Medical) K56.69 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 ( Chronic Medical) F02.80 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 Severe depression (Chronic Medical) F32.2 Severe anxiety (Chronic Medical) F41.9 Domestic concerns (Acute Social Hx) Z65.8 Streptococcus viridans infection (Acute Medical) A49.1 Uncontrolled hypertension (Acute Medical) I10 Renal insufficiency (Acute Medical) N28.9 Acute kidney injury superimposed on chronic kidney disease (Acute Medical) N17.9 , N18.9 Hypertensive encephalopathy (Acute Medical) I67.4 Frail elderly (Chronic Medical) R54 Altered mental status (Inactive Medical) R41.82 Altered mental status (Inactive Medical) R41.82 Closed head injury (Inactive Medical) S09.90XA Dehydration (Inactive Medical) E86.0 Drug reaction (Inactive Medical) T88.7XXA Fall (Inactive Medical) W19.XXXA Hyponatremia (Inactive Medical) E87.1 Lumbar radiculopathy (Inactive Medical) M54.16 Odontoid fracture (Inactive Medical) S12.100A Sciatica (Inactive Medical) M54.30 UTI (urinary tract infection) (Inactive Medical) N39.0 - Constitutional Constitutional: as per HPI - EENT Eyes: as per HPI Ears: as per HPI Nose, mouth and throat: as per HPI - Cardiovascular Cardiovascular ROS IM: as per HPI - Respiratory Respiratory: as per HPI - Gastrointestinal Gastrointestinal: as per HPI - Genitourinary Genitourinary: as per HPI - Musculoskeletal Musculoskeletal ROS IM: as per HPI - Integumentary Integumentary IM: as per HPI - Neurological Neurological ROS: as per HPI - Psychiatric Psychiatric: as per HPI - Endocrine Endocrine IM: as per HPI - Hematologic/Lymphatic Hematologic/Lymphatic: as per HPI - Allergic/Immunologic Allergic/Immunologic: as per HPI - Constitutional Vitals: Temp Pulse Resp BP Pulse Ox 97.8 F 59 16 192/67 98 07/25/16 21:21 07/25/16 21:21 07/25/16 21:21 07/25/16 21:21 07/25/16 21:21 Vital Signs Temp Pulse Resp BP Pulse Ox 07/25/16 21:21 97.8 F 59 16 192/67 98 07/25/16 18:57 97.8 F 61 16 175/73 96 07/25/16 17:44 18 177/71 07/25/16 17:00 70 18 163/69 99 07/25/16 16:01 66 16 177/74 100 07/25/16 14:52 69 16 163/71 93 07/25/16 14:30 98.8 F 74 16 164/78 97 07/25/16 13:12 75 16 206/91 97 07/25/16 10:56 98.7 F 87 16 186/90 95 Intake and Output 07/25/16 07/25/16 07/25/16 07:59 15:59 23:59 Intake Total 1000 / 1000 0 / 0 Output Total 0 / 0 Balance 1000 / 1000 0 / 0 Intake: IV Fluids 1000 / 1000 0.9 % Sodium Chloride 1, 1000 / 1000 000 ML @ 3750 mls/hr IVC .Q16M ONE Rx#:[id number] Oral 0 / 0 Output: Urine 0 / 0 Other: Weight 62.596 kg 57.742 kg Patient Weight 07/25/16 23:59 Weight 57.742 kg General appearance: Present: cooperative, A&O X 2, mild distress - Head Head exam: Present: atraumatic, normocephalic - Eye Eye exam: Present: EOMI, PERRL, conjuntiva pink, sclera anicteric Pupils: Present: normal accommodation - ENT ENT exam: Present: mucous membranes moist, normal oropharynx - Neck Neck exam general surgery: Present: supple, trachea midline. Absent: lymphadenopathy - Respiratory Respiratory exam: Present: decreased breath sounds, CTAB. Absent: accessory muscle use, rales, rhonchi, wheezes - Cardiovascular Cardiovascular exam: Present: distant heart sounds, RRR, +S1, +S2. Absent: diastolic murmur, gallop, rubs, systolic murmur - GI/Abdominal GI/Abdominal exam: Present: normal bowel sounds, soft, tenderness, no peritoneal signs. Absent: distended - Extremities Exam Extremities exam: Present: full ROM, warm, radial pulses palpable and symetrical. Absent: calf tenderness, cyanotic, pedal edema - Neurological Exam Neurological exam: Present: alert, altered, CN II-XII intact, no focal deficits. Absent: oriented X3, pronater drift, facial droop, speech deficit - Expanded Neurological Exam Neurological exam expanded: Present: inattentive, protecting the airway. Absent : expressive aphasia, receptive aphasia Patient oriented to: Present: person, place. Absent: time Speech: Present: garbled Coma Scale Eye Opening: Spontaneous Coma Scale Motor Response: Obeys Commands Coma Scale Verbal Response: Confused Coma Scale Total: 14 - Psychiatric Psychiatric exam: Present: normal affect, normal mood - Skin Skin exam: Present: dry, intact, warm Internal Med - H&P Results - Labs CBC & Chem 7: 07/25/16 12:07 07/25/16 12:07 Labs: Short CBC 07/25/16 Range/Units 12:07 WBC 8.8 (4.3-11.1) K/mcL Hgb 11.7 (11.5-15.4) g/dL Hct 36.3 (35.3-44.9) % Plt Count 312 (140-400) K/mcL Neutrophils # 7.6 (1.6-8.9) K/mcL BMP 07/25/16 Range/Units 12:07 Sodium 142 (136-145) mEq/L Potassium 3.3 L (3.5-4.5) mEq/L Chloride 107 (98-109) mEq/L Carbon Dioxide 24 (19-29) mEq/L BUN 35 H (7-20) mg/dL Creatinine 1.14 H (0.57-1.11) mg/dL Glucose 122 H (70-99) mg/dL Calcium 10.2 (8.6-10.8) mg/dL Cardiac Enzymes 07/25/16 Range/Units 12:07 Troponin I 0.02 (0-0.03) ng/mL Liver Function 07/25/16 Range/Units 12:07 Total Bilirubin 0.6 (0.2-1.2) mg/dL Direct Bilirubin 0.2 (0.0-0.5) mg/dL AST 15 (5-34) Units/L ALT 12 (0-55) Units/L Alkaline Phosphatase 55 (38-126) Units/L Albumin 4.0 (3.5-5.0) g/dL Urine 07/25/16 Range/Units 14:07 Urine Color Yellow (Yellow) Urine Clarity Clear (Clear) Urine pH 6.5 (5.0-8.0) pH Units Ur Specific [place] 1.015 (1.010-1.025) Urine Protein >=300 H (Neg-Trace) mg/dL Urine Glucose (UA) Normal (Normal) mg/dL Abnormal lab results RDW 15.1 % (11.5-14.5) H 07/25/16 12:07 MPV 8.5 fL (9.4-12.4) L 07/25/16 12:07 Potassium 3.3 mEq/L (3.5-4.5) L 07/25/16 12:07 BUN 35 mg/dL (7-20) H 07/25/16 12:07 Creatinine 1.14 mg/dL (0.57-1.11) H 07/25/16 12:07 Est GFR ( Amer) 55 (> 60) L 07/25/16 12:07 Est GFR (Non-Af Amer) 45 (> 60) L 07/25/16 12:07 BUN/Creatinine Ratio 31 (6-26) H 07/25/16 12:07 Glucose 122 mg/dL (70-99) H 07/25/16 12:07 Calculated Osmolality 303 (280-300) H 07/25/16 12:07 Globulin 3.8 g/dL (2.4-3.5) H 07/25/16 12:07 Urine Protein >=300 mg/dL (Neg-Trace) H 07/25/16 14:07 Urine Blood Small (Negative) H 07/25/16 14:07 Urine Microscopic RBC 3-5 per hpf (0-3) H 07/25/16 14:07 Ur Squamous Epith Cells Many per lpf (None-Few) H 07/25/16 14:07 Laboratory Results WBC 8.8 K/mcL (4.3-11.1) 07/25/16 12:07 RBC 3.99 M/mcL (3.82-4.97) 07/25/16 12:07 Hgb 11.7 g/dL (11.5-15.4) 07/25/16 12:07 Hct 36.3 % (35.3-44.9) 07/25/16 12:07 MCV 91.0 fL (83.0-100.0) 07/25/16 12:07 MCH 29.3 pg (28.0-33.3) 07/25/16 12:07 MCHC 32.2 g/dL (31.6-35.5) 07/25/16 12:07 RDW 15.1 % (11.5-14.5) H 07/25/16 12:07 Plt Count 312 K/mcL (140-400) 07/25/16 12:07 MPV 8.5 fL (9.4-12.4) L 07/25/16 12:07 Immature Gran % 0.5 % (0-4) 07/25/16 12:07 Seg Neutrophils % 86.7 % 07/25/16 12:07 Lymphocytes % 9.7 % 07/25/16 12:07 Monocytes % 2.6 % 07/25/16 12:07 Eosinophils % 0.0 % 07/25/16 12:07 Basophils % 0.5 % 07/25/16 12:07 Neutrophils # 7.6 K/mcL (1.6-8.9) 07/25/16 12:07 Lymphocytes # 0.9 K/mcL (0.6-4.6) 07/25/16 12:07 Monocytes # 0.2 K/mcL (0.0-1.3) 07/25/16 12:07 Eosinophils # 0.0 K/mcL (0.0-0.6) 07/25/16 12:07 Basophils # 0.0 K/mcL (0.0-0.2) 07/25/16 12:07 PT 12.1 Seconds (9.4-12.1) 07/25/16 12:07 INR 1.1 07/25/16 12:07 APTT 28.7 Seconds (26.0-36.0) 07/25/16 12:07 Sodium 142 mEq/L (136-145) 07/25/16 12:07 Potassium 3.3 mEq/L (3.5-4.5) L 07/25/16 12:07 Chloride 107 mEq/L (98-109) 07/25/16 12:07 Carbon Dioxide 24 mEq/L (19-29) 07/25/16 12:07 BUN 35 mg/dL (7-20) H 07/25/16 12:07 Creatinine 1.14 mg/dL (0.57-1.11) H 07/25/16 12:07 Est GFR ( Amer) 55 (> 60) L 07/25/16 12:07 Est GFR (Non-Af Amer) 45 (> 60) L 07/25/16 12:07 BUN/Creatinine Ratio 31 (6-26) H 07/25/16 12:07 Glucose 122 mg/dL (70-99) H 07/25/16 12:07 Calculated Osmolality 303 (280-300) H 07/25/16 12:07 Lactic Acid 0.8 mmol/L (0.5-2.2) 07/25/16 14:11 Calcium 10.2 mg/dL (8.6-10.8) 07/25/16 12:07 Phosphorus 3.6 mg/dL (2.3-4.7) 07/25/16 12:07 Magnesium 1.7 mg/dL (1.6-2.6) 07/25/16 12:07 Total Bilirubin 0.6 mg/dL (0.2-1.2) 07/25/16 12:07 Direct Bilirubin 0.2 mg/dL (0.0-0.5) 07/25/16 12:07 Indirect Bilirubin 0.4 mg/dL (0.0-1.2) 07/25/16 12:07 AST 15 Units/L (5-34) 07/25/16 12:07 ALT 12 Units/L (0-55) 07/25/16 12:07 Alkaline Phosphatase 55 Units/L (38-126) 07/25/16 12:07 Troponin I 0.02 ng/mL (0-0.03) 07/25/16 12:07 Serum Total Protein 7.8 g/dL (6.0-8.3) 07/25/16 12:07 Albumin 4.0 g/dL (3.5-5.0) 07/25/16 12:07 Globulin 3.8 g/dL (2.4-3.5) H 07/25/16 12:07 Albumin/Globulin Ratio 1.1 (1.1-2.2) 07/25/16 12:07 Lipase 14 Units/L (8-78) 07/25/16 12:07 Urine Color Yellow (Yellow) 07/25/16 14:07 Urine Clarity Clear (Clear) 07/25/16 14:07 Urine pH 6.5 pH Units (5.0-8.0) 07/25/16 14:07 Ur Specific [place] 1.015 (1.010-1.025) 07/25/16 14:07 Urine Protein >=300 mg/dL (Neg-Trace) H 07/25/16 14:07 Urine Glucose (UA) Normal mg/dL (Normal) 07/25/16 14:07 Urine Ketones Negative mg/dL (Negative) 07/25/16 14:07 Urine Blood Small (Negative) H 07/25/16 14:07 Urine Nitrite Negative (Negative) 07/25/16 14:07 Urine Bilirubin Negative (Negative) 07/25/16 14:07 Urine Urobilinogen Normal mg/dL (Normal) 07/25/16 14:07 Ur Leukocyte Esterase Negative (Negative) 07/25/16 14:07 Urine Microscopic RBC 3-5 per hpf (0-3) H 07/25/16 14:07 Urine Microscopic WBC 0-3 per hpf (0-3) 07/25/16 14:07 Ur Squamous Epith Cells Many per lpf (None-Few) H 07/25/16 14:07 Urine Bacteria None Seen per hpf (None-Few) 07/25/16 14:07 Hyaline Casts None Seen per lpf (None-Few) 07/25/16 14:07 Ur Culture Indicated? NO (NO) 07/25/16 14:07 Impressions Chest X-Ray 07/25/16 11:46 IMPRESSION: No acute cardiopulmonary disease. D/ / Harinder Matthews MD / Harinder Matthews MD Interpreting Provider: Harinder Matthews MD Head CT 07/25/16 13:13 IMPRESSION: No acute intracranial abnormality. D/ / Dago Goodman MD / Dago Goodman MD Interpreting Provider: Dago Goodman MD
[2016-07-26] MEDS: traZODone 50 MG TABLET PO SCH ×2 (00:02→21:50)
[2016-07-26] MEDS: 0.9 % Sodium Chloride 1,000 ML IVC SCH ×2 (00:29→21:49)
[2016-07-26 04:54] LABS: Adenovirus Not Detected (Not Detect); Bordetella Pertussis Not Detected (Not Detect); Chlamydophila pneumoniae Not Detected (Not Detect); Coronavirus 229E Not Detected (Not Detect); Coronavirus HKU1 Not Detected (Not Detect); Coronavirus NL63 Not Detected (Not Detect); Coronavirus OC43 Not Detected (Not Detect); Human Metapneumovirus Not Detected (Not Detect); Human Rhinovirus/Enterovirus Not Detected (Not Detect); Influenza A Subtype 2009 H1 Not Detected (Not Detect); Influenza A Untypeable Not Detected (Not Detect); Influenza B Not Detected (Not Detect); Mycoplasma pneumoniae Not Detected (Not Detect); Parainfluenza Virus 1 Not Detected (Not Detect); Parainfluenza Virus 2 Not Detected (Not Detect); Parainfluenza Virus 3 Not Detected (Not Detect); Parainfluenza Virus 4 Not Detected (Not Detect); Respiratory Syncytial Virus Not Detected (Not Detect)
[2016-07-26 05:40] LABS: Basophils # 0.1 K/mcL (0.0-0.2); Eosinophils # 0.1 K/mcL (0.0-0.6); Eosinophils % 1.6 %; Immature Granulocytes % 0.5 % (0-4); Lymphocytes # 1.8 K/mcL (0.6-4.6); Lymphocytes % 24.5 %; Mean Corpuscular HGB Conc 32.3 g/dL (31.6-35.5); Mean Corpuscular Hemoglobin 30.1 pg (28.0-33.3); Mean Corpuscular Volume 93.4 fL (83.0-100.0); Mean Platelet Volume 9.1 fL (9.4-12.4); Monocytes # 0.7 K/mcL (0.0-1.3); Monocytes % 9.8 %; Neutrophils # 4.6 K/mcL (1.6-8.9); Platelet Count 265 K/mcL (140-400); Red Blood Count 3.32 M/mcL (3.82-4.97); Red Cell Distribution Width 15.2 % (11.5-14.5); Segmented Neutrophils % 62.6 %
[2016-07-26 06:13] LABS: Hemoglobin A1C 5.2 %
[2016-07-26 06:14] LABS: Alanine Aminotransferase 10 Units/L (0-55); Albumin 3.3 g/dL (3.5-5.0); Alkaline Phosphatase 48 Units/L (38-126); Aspartate Amino Transferase 12 Units/L (5-34); BUN/Creatinine Ratio 32 (6-26); Bilirubin,Total 0.4 mg/dL (0.2-1.2); Blood Urea Nitrogen 28 mg/dL (7-20); Carbon Dioxide 21 mEq/L (19-29); Chloride 107 mEq/L (98-109); Globulin 3.2 g/dL (2.4-3.5); Glucose 91 mg/dL (70-99); Magnesium 1.7 mg/dL (1.6-2.6); Osmolality,Calculated 293 (280-300); Phosphorous 3.1 mg/dL (2.3-4.7); Potassium 3.4 mEq/L (3.5-4.5); Sodium 139 mEq/L (136-145); Total Protein 6.5 g/dL (6.0-8.3); eGFR For African Americans > 60 (> 60); eGFR For Non-African Americans > 60 (> 60)
[2016-07-26 06:21] LABS: Thyroid Stimulating Hormone 1.857 mcIU/mL (0.350-4.840)
[2016-07-26] MEDS: *HR* Heparin 5,000 UNIT/ML VIAL SQ SCH ×2 (06:45→15:55)
--- NOTE | 2016-07-26 07:06 | Electrocardiograph Report ---
[place] [address] Test Date: 2016-07-25 Pat Name: Xin Barrett Department: 102 Room: 2A32 Gender: F Scientific Research Associate: Sheree : 1930 Requested By: Brittany Gooden Order Number: [id number] Reading MD: Panda Khalil MD Measurements Intervals [place] Rate: 79 P: 75 [place]: 154 QRS: 37 QRSD: 86 T: 54 QT: 369 QTc: 403 Interpretive Statements SINUS RHYTHM Electronically Signed On 07-26-2016 7:04:53 EDT by Panda Khalil MD
[2016-07-26] MEDS: Magnesium Oxide 400 MG TABLET PO SCH (08:54)
[2016-07-26] MEDS: amLODIPine 5 MG TABLET PO SCH (08:54)
[2016-07-26] MEDS: risperiDONE 0.25 MG TABLET PO SCH (08:54)
[2016-07-26] MEDS ORDERED: Potassium Chloride Elixir 20 MEQ/15 ML UDC PO ONE (08:56)
--- NOTE | 2016-07-26 12:24 | Electrocardiograph Report ---
[address] [place] [address] Test Date: 2016-07-26 Pat Name: Xin Barrett Department: 112 Room: 2A32 Gender: F Hog Dropper: SOFI : 1930 Requested By: Neal Murry Order Number: [id number] Reading MD: Panda Khalil MD Measurements Intervals [place] Rate: 56 P: 67 [place]: 168 QRS: 36 QRSD: 84 T: 58 QT: 442 QTc: 435 Interpretive Statements SINUS BRADYCARDIA Electronically Signed On 07-26-2016 12:22:28 EDT by Panda Khalil MD
[2016-07-26] MEDS: Acetaminophen 325 MG TABLET PO PRN (15:53)
[2016-07-26] MEDS: Piperacillin/Tazobactam 3.375 GM in D5% in Water (Mini-Bag+) 100 ML IVPB SCH ×2 (15:53→15:55)
--- NOTE | 2016-07-26 16:11 | Internal Med Progress Note ---
<Lamine García - Last Filed: 07/26/16 16:09> Date of Encounter: 07/26/16 Time of Encounter: 09:50 - Assessment and plan (1) Fever Current Visit: Yes Status: Acute Assessment and plan: subjective. no fever since admission. Normal CXR Normal WBC count. Respiratory viral panel is negative. Ua dose not suggest UTI Likely a viral infection. Not on panel. we will get a CT of the abdomen to r/o abscess as there was an unsual fluid collection seen on US. If normal we will discontinue Zosyn. (2) Dehydration Current Visit: Yes Status: Acute Assessment and plan: IV fluids (3) Dementia Current Visit: Yes Status: Acute Assessment and plan: continue home medications. (4) Anemia Current Visit: Yes Status: Acute Assessment and plan: normocytic elevated RDW check hematinics. (5) DVT prophylaxis Current Visit: Yes Status: Acute Assessment and plan: SQ heparin (6) Hypokalemia Current Visit: Yes Status: Acute Assessment and plan: replete (7) Proteinuria Current Visit: Yes Status: Acute Assessment and plan: Pr/Cr pending. - Subjective Interval history: No major events overnight. This Am patient is alert. She dose admit to having recent runny nose and sore. Throat. nonproductive cough. No sinus pressure. she admits to some mild diffuse abdominal pain. She admits to one episode of watery stools this AM. She denies any other pain or discomfort. She has no further complaints or concerns at this time. - Constitutional Vitals: Temp Pulse Resp BP Pulse Ox 97.4 F L 72 17 129/70 93 07/26/16 07:33 07/26/16 07:33 07/26/16 07:33 07/26/16 07:33 07/26/16 07:33 General appearance: Present: cooperative, A&O X 2 - Head Head exam: Present: atraumatic, normal inspection, normocephalic - Eye Eye exam: Present: PERRL, conjuntiva pink, sclera anicteric Pupils: Present: PERRL - Neck Neck exam general surgery: Present: supple, trachea midline. Absent: lymphadenopathy - Respiratory Respiratory exam: Present: CTAB. Absent: accessory muscle use, rales, rhonchi, wheezes - Cardiovascular Cardiovascular exam: Present: RRR, +S1, +S2. Absent: diastolic murmur, gallop, rubs, systolic murmur - GI/Abdominal GI/Abdominal exam: Present: normal bowel sounds, soft, tenderness (mild difuse) , no peritoneal signs. Absent: distended - Extremities Exam Extremities exam: Present: warm, radial pulses palpable and symetrical. Absent : calf tenderness, cyanotic, pedal edema - Skin Skin exam: Present: dry, intact Internal Medicine: Result - Labs CBC & Chem 7: 07/26/16 04:54 07/26/16 04:54 Labs: Short CBC 07/26/16 Range/Units 04:54 WBC 7.4 (4.3-11.1) K/mcL Hgb 10.0 L D (11.5-15.4) g/dL Hct 31.0 L (35.3-44.9) % Plt Count 265 (140-400) K/mcL Neutrophils # 4.6 (1.6-8.9) K/mcL BMP 07/26/16 04:54 Sodium 139 Potassium 3.4 L Chloride 107 Carbon Dioxide 21 BUN 28 H Creatinine 0.87 Glucose 91 Calcium 9.0 Liver Function 07/26/16 Range/Units 04:54 Total Bilirubin 0.4 (0.2-1.2) mg/dL AST 12 (5-34) Units/L ALT 10 (0-55) Units/L Alkaline Phosphatase 48 (38-126) Units/L Albumin 3.3 L (3.5-5.0) g/dL - ABG Interpretation ABG results: PT/INR, D-dimer PT 12.1 Seconds (9.4-12.1) 07/25/16 12:07 - Impressions Impressions Retroperitoneum Ultrasound 07/26/16 09:00 IMPRESSION: No evidence for hydronephrosis. 2.9 cm left renal cyst. 7.6 x 2.6 cm fluid collection posterior to the urinary bladder. This finding is of uncertain significance and could represent a fluid-filled bowel loop noting presence of hysterectomy. D/ / 07/26/2016 09:57:52 Lan Deleon MD / ubaldo Interpreting Provider: Lan Deleon MD Consult Discharge Plan - Plan Referrals: Samia Ariza MD [Primary Care Provider] - <Kendall Mohamud - Last Filed: 07/26/16 18:27> Date of Encounter: 07/26/16 - Constitutional Vitals: Temp Pulse Resp BP Pulse Ox 97.7 F 60 18 154/65 97 07/26/16 18:22 07/26/16 18:22 07/26/16 18:22 07/26/16 18:22 07/26/16 18:22 Internal Medicine: Result - Labs CBC & Chem 7: 07/26/16 04:54 07/26/16 04:54 Labs: Short CBC 07/26/16 Range/Units 04:54 WBC 7.4 (4.3-11.1) K/mcL Hgb 10.0 L D (11.5-15.4) g/dL Hct 31.0 L (35.3-44.9) % Plt Count 265 (140-400) K/mcL Neutrophils # 4.6 (1.6-8.9) K/mcL BMP 07/26/16 04:54 Sodium 139 Potassium 3.4 L Chloride 107 Carbon Dioxide 21 BUN 28 H Creatinine 0.87 Glucose 91 Calcium 9.0 Liver Function 07/26/16 Range/Units 04:54 Total Bilirubin 0.4 (0.2-1.2) mg/dL AST 12 (5-34) Units/L ALT 10 (0-55) Units/L Alkaline Phosphatase 48 (38-126) Units/L Albumin 3.3 L (3.5-5.0) g/dL - ABG Interpretation ABG results: PT/INR, D-dimer PT 12.1 Seconds (9.4-12.1) 07/25/16 12:07 - Impressions Impressions Retroperitoneum Ultrasound 07/26/16 09:00 IMPRESSION: No evidence for hydronephrosis. 2.9 cm left renal cyst. 7.6 x 2.6 cm fluid collection posterior to the urinary bladder. This finding is of uncertain significance and could represent a fluid-filled bowel loop noting presence of hysterectomy. D/ / 07/26/2016 09:57:52 Lan Deleon MD / ubaldo Interpreting Provider: Lan Deleon MD Abdomen/Pelvis CT 07/26/16 16:02 IMPRESSION: No abnormal fluid collection. Etiology of the finding at ultrasound is uncertain but may relate to bowel loop. Multiple hyperdense renal lesions as detailed common which were seen previously. The largest has increased slightly in size compared to prior study. These may represent proteinaceous or hemorrhagic cyst. D/ / Nura Gudino MD / Nura Gudino MD Interpreting Provider: Nura Gudino MD - Attending Attestation I examined this patient and my medical decision-making was reviewed with the TWISTING FRAME FIXER/PA/Advanced Practice Nurse/Resident Physician. I agree with the documented findings, disposition and treatment plan as described except to the extent set forth below. Admitted due to fever. Agree with Dr. García. D/W patient and her family. Continue with antibiotics.
[2016-07-27] MEDS: Acetaminophen 325 MG TABLET PO PRN ×2 (01:44→21:01)
[2016-07-27] MEDS: *HR* Heparin 5,000 UNIT/ML VIAL SQ SCH ×2 (05:41→17:42)
[2016-07-27 06:32] LABS: Basophils # 0.1 K/mcL (0.0-0.2); Basophils % 0.8 %; Eosinophils # 0.2 K/mcL (0.0-0.6); Eosinophils % 3.2 %; Hematocrit 34.1 % (35.3-44.9); Hemoglobin 11.2 g/dL (11.5-15.4); Immature Granulocytes % 0.6 % (0-4); Lymphocytes # 1.2 K/mcL (0.6-4.6); Lymphocytes % 17.9 %; Mean Corpuscular HGB Conc 32.8 g/dL (31.6-35.5); Mean Corpuscular Hemoglobin 30.2 pg (28.0-33.3); Mean Corpuscular Volume 91.9 fL (83.0-100.0); Mean Platelet Volume 9.1 fL (9.4-12.4); Monocytes # 0.6 K/mcL (0.0-1.3); Monocytes % 8.7 %; Neutrophils # 4.6 K/mcL (1.6-8.9); Platelet Count 287 K/mcL (140-400); Red Blood Count 3.71 M/mcL (3.82-4.97); Red Cell Distribution Width 14.6 % (11.5-14.5); Segmented Neutrophils % 68.8 %
[2016-07-27 06:47] LABS: % Iron Saturation 30 % (15-50); BUN/Creatinine Ratio 23 (6-26); Blood Urea Nitrogen 18 mg/dL (7-20); Calcium 9.1 mg/dL (8.6-10.8); Carbon Dioxide 25 mEq/L (19-29); Chloride 100 mEq/L (98-109); Glucose 91 mg/dL (70-99); Iron 73 mcg/dL (50-170); Osmolality,Calculated 277 (280-300); Potassium 3.4 mEq/L (3.5-4.5); Sodium 133 mEq/L (136-145); Transferrin 173 mg/dL (180-382); eGFR For African Americans > 60 (> 60); eGFR For Non-African Americans > 60 (> 60)
[2016-07-27 07:20] LABS: Folate 15.5 ng/mL (7.0-31.4)
[2016-07-27] MEDS ORDERED: Potassium Chloride Elixir 20 MEQ/15 ML UDC PO ONE (08:38)
[2016-07-27] MEDS: risperiDONE 0.25 MG TABLET PO SCH (09:31)
[2016-07-27] MEDS: amLODIPine 5 MG TABLET PO SCH (09:31)
[2016-07-27] MEDS: Magnesium Oxide 400 MG TABLET PO SCH (09:31)
--- NOTE | 2016-07-27 11:48 | Internal Med Progress Note ---
<Lamine García - Last Filed: 07/27/16 11:45> Date of Encounter: 07/27/16 Time of Encounter: 11:45 - Assessment and plan (1) Fever Current Visit: Yes Status: Acute Assessment and plan: subjective. no fever since admission. Normal CXR Normal WBC count. Respiratory viral panel is negative. Ua dose not suggest UTI Likely a viral infection. Not on panel. we will get a CT of the abdomen to r/o abscess as there was an unsual fluid collection seen on US. If normal we will discontinue Zosyn. 07/27/2016 No fevers overnight as well. She has a normal white count. Possibly from viral infection with diarrhea possibly viral gastroenteritis. Will check a GI panel. On any antibiotics at this time. We will give her IV fluids. (2) Dehydration Current Visit: Yes Status: Acute Assessment and plan: IV fluids (3) Dementia Current Visit: Yes Status: Acute Assessment and plan: continue home medications. (4) Anemia Current Visit: Yes Status: Acute Assessment and plan: normocytic elevated RDW check hematinics. 07/27/2016. Hemoglobin stable. Hematinics are still pending (5) DVT prophylaxis Current Visit: Yes Status: Acute Assessment and plan: SQ heparin (6) Hypokalemia Current Visit: Yes Status: Acute Assessment and plan: replete (7) Proteinuria Current Visit: Yes Status: Acute Assessment and plan: Pr/Cr pending. - Subjective Interval history: Measurements overnight. Patient does complain of watery stools and mild diffuse abdominal pain. Denies any shortness breath or any other pain or discomfort at this time. She has no further complaints or concerns. - Constitutional Vitals: Temp Pulse Resp BP Pulse Ox 98.4 F 64 16 133/65 97 07/27/16 11:15 07/27/16 11:15 07/27/16 11:15 07/27/16 11:15 07/27/16 11:15 Exam: General: This is a 86 Year old female who is alert and orientated to person place time and situation. No acute distress. HEENT: Head is normocephalic atraumatic pupils are equally round reactive to light and accommodation, sclera are anicteric, nares are patent, normal external appearance of the nose and ears, the posterior pharynx is pink without cobblestoning or exudate. Uvula is midline, tongue is midline, dentition is intact. Heart: Regular rate and rhythm without murmur rubs or gallops, S1, S2, without S3 or S4. Capillary refills less than 2 seconds. Radial pulses are 2 out of 4 and synchronous. No JVD with inspection of the neck. Lungs: Clear to auscultation bilaterally, normal effort. Abdomen: Bowel sounds are normoactive, no bruits, abdomen is soft, mild diffuse tenderness to palpation, no organomegaly noted, no guarding throughout the exam. Musculoskeletal: No gross deformity noted, moves all limbs without difficulty. Integument: Cool, dry, normal turgor, no edema. Internal Medicine: Result - Labs CBC & Chem 7: 07/27/16 05:57 07/27/16 05:57 - ABG Interpretation ABG results: PT/INR, D-dimer PT 12.1 Seconds (9.4-12.1) 07/25/16 12:07 - VTE Documentation of Mechanical Device: Graduated compression elastic hosiery Consult Discharge Plan - Plan Referrals: Karla Eugene, GARCIA [Advanced Practice Nurse] - 08/07/16 3:30 pm ([facility] Alma Ariza MD [Primary Care Provider] - <Kendall Mohamud - Last Filed: 07/27/16 18:02> Date of Encounter: 07/27/16 - Constitutional Vitals: Temp Pulse Resp BP Pulse Ox 98.5 F 73 16 146/70 95 07/27/16 15:50 07/27/16 15:50 07/27/16 15:50 07/27/16 15:50 07/27/16 15:50 Internal Medicine: Result - Labs CBC & Chem 7: 07/27/16 05:57 07/27/16 05:57 - ABG Interpretation ABG results: PT/INR, D-dimer PT 12.1 Seconds (9.4-12.1) 07/25/16 12:07 - Attending Attestation I examined this patient and my medical decision-making was reviewed with the PRODUCT MANAGEMENT CONSULTANT/PA/Advanced Practice Nurse/Resident Physician. I agree with the documented findings, disposition and treatment plan as described except to the extent set forth below. Diarrhea, get GI panel. D/W patient and her family.
[2016-07-27 15:30] LABS: Adenovirus F 40/41 PCR Not detected (Not detect); Astrovirus PCR Not detected (Not detect); C.difficile Toxin A/B by PCR Not detected (Not detect); Campylobacter by PCR Not detected (Not detect); Cryptosporidium by PCR Not detected (Not detect); Cyclospora cayetanensis PCR Not detected (Not detect); E. coli O157 by PCR Not detected (Not detect); Entamoeba histolytica PCR Not detected (Not detect); Enteroaggregative E.coli(EAEC) Not detected (Not detect); Enteropathogenic E.coli(EPEC) Not detected (Not detect); Enterotoxigenic E.coli (ETEC) Not detected (Not detect); Giardia lamblia PCR Not detected (Not detect); Norovirus GI/GII PCR Not detected (Not detect); Plesiomonas shigelloides PCR Not detected (Not detect); Rotavirus A PCR Not detected (Not detect); Salmonella PCR Not detected (Not detect); Sapovirus PCR Not detected (Not detect); Shig/EnteroinvasiveE coli EIEC Not detected (Not detect); Shigalike tox-prod E coli STEC Not detected (Not detect); Vibrio PCR Not detected (Not detect); Vibrio cholerae PCR Not detected (Not detect); Yersinia enterocolitica PCR Not detected (Not detect)
[2016-07-27] MEDS: 0.9 % Sodium Chloride 1,000 ML IVC SCH (17:49)
[2016-07-27] MEDS: traZODone 50 MG TABLET PO SCH (20:54)
[2016-07-28] MEDS: *HR* Heparin 5,000 UNIT/ML VIAL SQ SCH ×2 (05:49→16:56)
[2016-07-28] MEDS: amLODIPine 5 MG TABLET PO SCH (08:40)
[2016-07-28] MEDS: Magnesium Oxide 400 MG TABLET PO SCH (08:40)
[2016-07-28] MEDS: risperiDONE 0.25 MG TABLET PO SCH (08:40)
[2016-07-28] MEDS ORDERED: Diphenoxylate/Atropine 1 TAB TABLET PO PRN (09:28)
[2016-07-28 14:34] LABS: Protein/Creatinine Ratio,Urine 1.72 mg/mg (0-0.20)
[2016-07-28] MEDS: 0.9 % Sodium Chloride 1,000 ML IVC SCH (16:56)
--- NOTE | 2016-07-28 17:39 | Internal Med Progress Note ---
<Lamine García - Last Filed: 07/28/16 17:37> Date of Encounter: 07/28/16 Time of Encounter: 11:35 - Assessment and plan (1) Fever Current Visit: Yes Status: Acute Assessment and plan: subjective. no fever since admission. Normal CXR Normal WBC count. Respiratory viral panel is negative. Ua dose not suggest UTI Likely a viral infection. Not on panel. we will get a CT of the abdomen to r/o abscess as there was an unsual fluid collection seen on US. If normal we will discontinue Zosyn. 07/28/2016 No fevers since infection. Infectious workup negative thus far. Patient is still dehydrated and requires IV fluids. May be able to possibly DC in AM after getting IV fluids. (2) Dehydration Current Visit: Yes Status: Acute Assessment and plan: IV fluids (3) Dementia Current Visit: Yes Status: Acute Assessment and plan: continue home medications. (4) Anemia Current Visit: Yes Status: Acute Assessment and plan: normocytic elevated RDW check hematinics. 07/28/2016. normal iron B12 and folate. Hg stable. (5) DVT prophylaxis Current Visit: Yes Status: Acute Assessment and plan: SQ heparin (6) Diarrhea Current Visit: Yes Status: Acute Assessment and plan: infectious panel negative. Possible from magnesium or sinemet. Mg still low so will continue. will add loperamide. (7) Proteinuria Current Visit: Yes Status: Acute Assessment and plan: sub nephrotic range proteinuria - Subjective Interval history: No major events overnight. Carol is still complaining of loose bowel movements 2-5 per day. She denies any other complaints or concerns at this time. - Constitutional Vitals: Temp Pulse Resp BP Pulse Ox 99.4 F 74 16 137/62 95 07/28/16 15:58 07/28/16 15:58 07/28/16 15:58 07/28/16 15:58 07/28/16 15:58 General appearance: Present: cooperative, A&O X 2 - Head Head exam: Present: atraumatic, normocephalic - Eye Eye exam: Present: PERRL, conjuntiva pink, sclera anicteric Pupils: Present: PERRL - Neck Neck exam general surgery: Present: supple, trachea midline. Absent: lymphadenopathy - Respiratory Respiratory exam: Present: CTAB. Absent: accessory muscle use, rales, rhonchi, wheezes - Cardiovascular Cardiovascular exam: Present: RRR, +S1, +S2. Absent: diastolic murmur, gallop, rubs, systolic murmur - GI/Abdominal GI/Abdominal exam: Present: normal bowel sounds, soft, no peritoneal signs. Absent: distended, tenderness - Extremities Exam Extremities exam: Present: warm, radial pulses palpable and symetrical. Absent : calf tenderness, cyanotic, pedal edema - Skin Skin exam: Present: dry, intact Internal Medicine: Result - Labs CBC & Chem 7: 07/27/16 05:57 07/27/16 05:57 - ABG Interpretation ABG results: PT/INR, D-dimer PT 12.1 Seconds (9.4-12.1) 07/25/16 12:07 - VTE Documentation of Mechanical Device: Graduated compression elastic hosiery Consult Discharge Plan - Plan Referrals: Karla Eugene, PRAWN TRAWLER HAND [Advanced Practice Nurse] - 08/07/16 3:30 pm ([facility] Alma Ariza MD [Primary Care Provider] - <Kendall Mohamud - Last Filed: 07/28/16 17:44> Date of Encounter: 07/28/16 - Constitutional Vitals: Temp Pulse Resp BP Pulse Ox 99.4 F 74 16 137/62 95 07/28/16 15:58 07/28/16 15:58 07/28/16 15:58 07/28/16 15:58 07/28/16 15:58 Internal Medicine: Result - Labs CBC & Chem 7: 07/27/16 05:57 07/27/16 05:57 - ABG Interpretation ABG results: PT/INR, D-dimer PT 12.1 Seconds (9.4-12.1) 07/25/16 12:07 - Attending Attestation I examined this patient and my medical decision-making was reviewed with the IMPACT HAMMER OPERATOR/PA/Advanced Practice Nurse/Resident Physician. I agree with the documented findings, disposition and treatment plan as described except to the extent set forth below. IV fluids, negative GI workup.
[2016-07-28] MEDS: Acetaminophen 325 MG TABLET PO PRN (20:25)
[2016-07-28] MEDS: traZODone 50 MG TABLET PO SCH (20:26)
[2016-07-29] MEDS: *HR* Heparin 5,000 UNIT/ML VIAL SQ SCH ×2 (05:51→17:54)
[2016-07-29 06:13] LABS: Basophils % 0.5 %; Eosinophils # 0.1 K/mcL (0.0-0.6); Eosinophils % 2.3 %; Hematocrit 31.7 % (35.3-44.9); Hemoglobin 10.5 g/dL (11.5-15.4); Immature Granulocytes % 0.5 % (0-4); Lymphocytes # 1.1 K/mcL (0.6-4.6); Lymphocytes % 19.7 %; Mean Corpuscular HGB Conc 33.1 g/dL (31.6-35.5); Mean Corpuscular Hemoglobin 30.2 pg (28.0-33.3); Mean Corpuscular Volume 91.1 fL (83.0-100.0); Monocytes # 0.5 K/mcL (0.0-1.3); Monocytes % 8.6 %; Neutrophils # 3.9 K/mcL (1.6-8.9); Platelet Count 270 K/mcL (140-400); Red Blood Count 3.48 M/mcL (3.82-4.97); Red Cell Distribution Width 14.8 % (11.5-14.5); Segmented Neutrophils % 68.4 %
[2016-07-29 06:27] LABS: BUN/Creatinine Ratio 26 (6-26); Blood Urea Nitrogen 20 mg/dL (7-20); Calcium 9.1 mg/dL (8.6-10.8); Carbon Dioxide 24 mEq/L (19-29); Chloride 104 mEq/L (98-109); Glucose 92 mg/dL (70-99); Osmolality,Calculated 282 (280-300); Potassium 3.3 mEq/L (3.5-4.5); Sodium 135 mEq/L (136-145); eGFR For African Americans > 60 (> 60); eGFR For Non-African Americans > 60 (> 60)
[2016-07-29] MEDS: Magnesium Sulfate 2 GM in D5% in Water 100 ML IVPB SCH ×2 (09:43→11:22)
[2016-07-29] MEDS: Magnesium Oxide 400 MG TABLET PO SCH (09:44)
[2016-07-29] MEDS: amLODIPine 5 MG TABLET PO SCH (09:44)
[2016-07-29] MEDS: risperiDONE 0.25 MG TABLET PO SCH (09:44)
--- NOTE | 2016-07-29 10:30 | Internal Med Progress Note ---
Date of Encounter: 07/29/16 Time of Encounter: 10:28 - Assessment and plan (1) Hypokalemia Current Visit: No Status: Resolved Assessment and plan: supplement potassiumtoday, also magnessium will be supplemented. (2) Hypomagnesemia Current Visit: No Status: Resolved Assessment and plan: will give magnesium via iv. monitor levels tomorrow. (3) DVT prophylaxis Current Visit: No Status: Acute (4) Dehydration Current Visit: Yes Status: Acute Assessment and plan: Improving, encourage po hydration. Possible d/c tomorrow to SNF if stable. (5) Diarrhea Current Visit: Yes Status: Acute Assessment and plan: infectious panel negative. Mg still low so will continue supplementation. continue loperamide. Qualifiers: Diarrhea type: unspecified type Qualified Code(s): R19.7 - Diarrhea, unspecified - Time Spent With Patient 25 - 35 minutes - Subjective Interval history: Seen and examined on rounds, she was having breakfast. Denies abdominal pain. - Constitutional Vitals: Temp Pulse Resp BP Pulse Ox 97.6 F 67 17 184/72 95 07/29/16 07:29 07/29/16 07:29 07/29/16 07:29 07/29/16 07:29 07/29/16 07:29 General appearance: Present: cooperative, A&O X 2 - Head Head exam: Present: atraumatic, normocephalic - Eye Eye exam: Present: PERRL, conjuntiva pink, sclera anicteric Pupils: Present: PERRL - Neck Neck exam general surgery: Present: supple, trachea midline. Absent: lymphadenopathy - Respiratory Respiratory exam: Present: CTAB. Absent: accessory muscle use, rales, rhonchi, wheezes - Cardiovascular Cardiovascular exam: Present: RRR, +S1, +S2. Absent: diastolic murmur, gallop, rubs, systolic murmur - GI/Abdominal GI/Abdominal exam: Present: normal bowel sounds, soft, no peritoneal signs. Absent: distended, tenderness - Extremities Exam Extremities exam: Present: warm, radial pulses palpable and symetrical. Absent : calf tenderness, cyanotic, pedal edema - Neurological Exam Neurological exam: Present: CN II-XII intact, oriented X3, no focal deficits. Absent: pronater drift, facial droop, speech deficit - Skin Skin exam: Present: dry, intact Internal Medicine: Result - Labs CBC & Chem 7: 07/29/16 05:46 07/29/16 05:46 Labs: Short CBC 07/29/16 Range/Units 05:46 WBC 5.7 (4.3-11.1) K/mcL Hgb 10.5 L (11.5-15.4) g/dL Hct 31.7 L (35.3-44.9) % Plt Count 270 (140-400) K/mcL Neutrophils # 3.9 (1.6-8.9) K/mcL BMP 07/29/16 05:46 Sodium 135 L Potassium 3.3 L Chloride 104 Carbon Dioxide 24 BUN 20 Creatinine 0.77 Glucose 92 Calcium 9.1 - ABG Interpretation ABG results: PT/INR, D-dimer PT 12.1 Seconds (9.4-12.1) 07/25/16 12:07 - VTE Documentation of Mechanical Device: Graduated compression elastic hosiery Consult Discharge Plan - Plan Referrals: Karla Eugene, GAUGE MAKER APPRENTICE [Advanced Practice Nurse] - 08/07/16 3:30 pm ([facility] Samia Ariza MD [Primary Care Provider] -
[2016-07-29] MEDS: traZODone 50 MG TABLET PO SCH (21:14)
[2016-07-30 04:06] LABS: Basophils # 0.1 K/mcL (0.0-0.2); Basophils % 0.6 %; Eosinophils # 0.2 K/mcL (0.0-0.6); Eosinophils % 1.7 %; Hematocrit 30.8 % (35.3-44.9); Hemoglobin 10.1 g/dL (11.5-15.4); Immature Granulocytes % 0.3 % (0-4); Lymphocytes # 1.2 K/mcL (0.6-4.6); Lymphocytes % 13.3 %; Mean Corpuscular HGB Conc 32.8 g/dL (31.6-35.5); Mean Corpuscular Hemoglobin 29.5 pg (28.0-33.3); Mean Corpuscular Volume 90.1 fL (83.0-100.0); Monocytes # 0.9 K/mcL (0.0-1.3); Monocytes % 9.6 %; Platelet Count 285 K/mcL (140-400); Red Blood Count 3.42 M/mcL (3.82-4.97); Red Cell Distribution Width 14.9 % (11.5-14.5); Segmented Neutrophils % 74.5 %
[2016-07-30 04:17] LABS: BUN/Creatinine Ratio 24 (6-26); Blood Urea Nitrogen 19 mg/dL (7-20); Calcium 9.2 mg/dL (8.6-10.8); Carbon Dioxide 23 mEq/L (19-29); Chloride 103 mEq/L (98-109); Glucose 101 mg/dL (70-99); Magnesium 2.1 mg/dL (1.6-2.6); Osmolality,Calculated 280 (280-300); Potassium 3.8 mEq/L (3.5-4.5); Sodium 134 mEq/L (136-145); eGFR For African Americans > 60 (> 60); eGFR For Non-African Americans > 60 (> 60)
[2016-07-30 04:22] LABS: Neutrophils # 6.6 K/mcL (1.6-8.9)
[2016-07-30] MEDS: *HR* Heparin 5,000 UNIT/ML VIAL SQ SCH (06:09)
[2016-07-30] MEDS: risperiDONE 0.25 MG TABLET PO SCH (08:45)
[2016-07-30] MEDS: Magnesium Oxide 400 MG TABLET PO SCH (08:45)
[2016-07-30] MEDS: amLODIPine 5 MG TABLET PO SCH (08:46)
--- NOTE | 2016-07-30 11:25 | Discharge Summary ---
<Lamine García - Last Filed: 07/30/16 11:33> Date of Encounter: 07/30/16 Time of Encounter: 11:13 - Discharge Diagnosis (1) Fever Priority: Primary Status: Acute Qualifiers: Qualified Code(s): R50.9 - Fever, unspecified (2) Dehydration Priority: Secondary Status: Acute (3) Dementia Priority: Secondary Status: Acute Qualifiers: Qualified Code(s): F03.90 - Unspecified dementia without behavioral disturbance (4) Anemia Priority: Secondary Status: Acute Qualifiers: Qualified Code(s): D64.9 - Anemia, unspecified (5) DVT prophylaxis Priority: Secondary Status: Acute (6) Diarrhea Priority: Secondary Status: Acute Qualifiers: Diarrhea type: unspecified type Qualified Code(s): R19.7 - Diarrhea, unspecified (7) Proteinuria Priority: Secondary Status: Acute Qualifiers: Qualified Code(s): R80.9 - Proteinuria, unspecified - Discharge Medications Prescriptions: Lisinopril [Zestril] 5 mg PO DAILY #30 tablet Magnesium Oxide [Magnesium] 400 mg PO DAILY 30 Days Home Medications: Amlodipine [Norvasc] 10 mg PO DAILY 11/30/14 [History] Simvastatin [Zocor] 20 mg PO QPM 11/30/14 [History] Alendronate Sodium [Fosamax] 70 mg PO QWEEK 09/01/15 [History] Calcium Carbonate/Vitamin D3 [Calcium 600 + Vit D Tablet] 1 each PO DAILY [History] Cholecalciferol (D-3) [Vitamin D] 1,000 unit PO DAILY 09/01/15 [History] Cyanocobalamin (Vitamin B-12) [Vitamin B-12] 1,000 mcg SL DAILY 09/01/15 [ History] Isosorbide DInitrate [Isosorbide Dinitrate] 10 mg PO BID 04/30/16 [History] BuPROPion [Wellbutrin] 75 mg PO DAILY 07/25/16 [History] Donepezil HCl [Donepezil HCl Odt] 10 mg PO HS 07/25/16 [History] Memantine [Namenda] 5 mg PO DAILY 07/25/16 [History] Polyethylene Glycol 3350 [Smoothlax] 17 gm PO DAILY PRN 07/25/16 [History] RisperiDONE [RisperDAL] 0.25 mg PO DAILY 07/25/16 [History] Sertraline [Zoloft] 25 mg PO DAILY 07/25/16 [History] TraZODone 25 mg PO HS 07/25/16 [History] Diphenoxylate/Atropine [Lomotil 2.5 mg/0.025 mg] 2 tab PO QID PRN #0 tablet [Rx] Lisinopril [Zestril] 5 mg PO DAILY #30 tablet 07/30/16 [Rx] Magnesium Oxide [Magnesium] 400 mg PO DAILY 30 Days 07/30/16 [Rx] Omeprazole [PriLOSEC] 20 mg PO DAILY@0630 capsule. 07/30/16 [Rx] Ondansetron [Zofran] 4 mg IVP Q8HR PRN #0 vial 07/30/16 [Rx] Allergies/Adverse Reactions: Allergies Oxycodone [From Percocet] Allergy (Verified 07/25/16 10:59) hallucinations prednisone Allergy (Verified 07/25/16 10:59) lip swelling Sulfa (Sulfonamide Antibiotics) Allergy (Verified 07/25/16 10:59) Rash gabapentin Adverse Reaction (Verified 07/25/16 10:59) Confusion hydrocodone [From [place]] Adverse Reaction (Verified 07/25/16 10:59) Confusion meloxicam [From Mobic] Adverse Reaction (Verified 07/25/16 10:59) leg swelling Date of admission: 07/27/16 09:28 Primary care physician: Alma Ariza, Discharging clinician: Lamine García Anticipated date of discharge: 07/30/16 - Patient Status Disposition: Transfer SNF Condition: Good Functional capacity at discharge: uses cane/walker Overall status at discharge: patient is progressing back to baseline - Discharge Instructions Instructions: Lisinopril (By mouth), Magnesium Oxide (By mouth), Urinary Tract Infection in Women (DC), Chronic Hypertension (DC) Follow Up With: Karla Eugene, SENIOR FINANCE MANAGER [Advanced Practice Nurse] - 08/07/16 3:30 pm ([facility] Alma Ariza MD [Primary Care Provider] - ([facility]) - Diet and Activity Activity: as per physical therapy Diet: low fat, low cholesterol, low salt diet Hospital course: Ms. Barrett is a 86 year old female who was admitted to the hospital with suspected infection as she was having fevers at home. Additionally she had declined and has become muscularly decondition. She was also dehydrated and having diarrhea. We did do a infectious workup UA chest x-ray risk for infection panel gastrointestinal panel and C. difficile testing were all negative. She has had no fevers and no leukocytosis since admission. Today she is doing quite well. She continues to have loose stools but these are forming now we have added when necessary loperamide. Most likely this is secondary to her Sinemet. Did recommend to her daughter that she follow with her PCP or neurologist for possible adjustment of her dosage. Additionally she has had some hypertension. Also has some proteinuria. So we will start her on a low-dose of lisinopril. I did discuss the potential side effects including angioedema with the patient and her daughter. We will discharge the patient today to inpatient rehabilitation. The patient and her daughters have respect their understanding and agreement to the above plan. - Time Spent with Patient Total time spent providing and/or coordinating discharge services: Greater than 30 minutes (I spent approximately 40 minutes discharging this patient and coordinating her care.) - Constitutional Vitals: Temp Pulse Resp BP Pulse Ox 99.2 F 74 18 183/69 96 07/30/16 07:33 07/30/16 07:33 07/30/16 07:33 07/30/16 07:33 07/30/16 09:00 General appearance: Present: cooperative, A&O X 2 - Head Head exam: Present: atraumatic, normocephalic - Eye Eye exam: Present: PERRL, conjuntiva pink, sclera anicteric Pupils: Present: PERRL - Neck Neck exam general surgery: Present: supple, trachea midline. Absent: lymphadenopathy - Respiratory Respiratory exam: Present: CTAB. Absent: accessory muscle use, rales, rhonchi, wheezes - Cardiovascular Cardiovascular exam: Present: RRR, +S1, +S2. Absent: diastolic murmur, gallop, rubs, systolic murmur - GI/Abdominal GI/Abdominal exam: Present: normal bowel sounds, soft, no peritoneal signs. Absent: distended, tenderness - Extremities Exam Extremities exam: Present: warm, radial pulses palpable and symetrical. Absent : calf tenderness, cyanotic, pedal edema - Neurological Exam Neurological exam: Present: CN II-XII intact, oriented X3, no focal deficits. Absent: pronater drift, facial droop, speech deficit - Skin Skin exam: Present: dry, intact - VTE Documentation of Mechanical Device: Graduated compression elastic hosiery <Kendall Mohamud Dwayne - Last Filed: 07/30/16 16:04> Date of Encounter: 07/30/16 - Discharge Diagnosis (1) Hypokalemia Status: Resolved (2) Hypomagnesemia Status: Resolved (3) DVT prophylaxis Status: Acute (4) Dehydration Status: Acute (5) Diarrhea Status: Acute Qualifiers: Diarrhea type: unspecified type Qualified Code(s): R19.7 - Diarrhea, unspecified Date of admission: 07/27/16 09:28 Primary care physician: Alma Ariza, Hospital course: Ms. Barrett is a 86 year old female - Time Spent with Patient Total time spent providing and/or coordinating discharge services: - Constitutional Vitals: Temp Pulse Resp BP Pulse Ox 97.6 F 71 18 126/64 97 07/30/16 11:48 07/30/16 11:48 07/30/16 11:48 07/30/16 11:48 07/30/16 11:48 - Attending Attestation I examined this patient and my medical decision-making was reviewed with the TWISTHAND/PA/Advanced Practice Nurse/Resident Physician. I agree with the documented findings, disposition and treatment plan as described except to the extent set forth below. Stable, d/c to ECF today.
--- NOTE | 2016-07-30 11:35 | Physician Discharge Referral ---
ExtendedCare Referral Info Transfer To: ECF Provider in Charge after Transfer: PCP Institutional Level of Care: Skilled - Diagnosis (1) Fever Status: Acute (2) Dehydration Status: Acute (3) Dementia Status: Acute (4) Anemia Status: Acute (5) DVT prophylaxis Status: Acute (6) Diarrhea Status: Acute (7) Proteinuria Status: Acute - Transfer Medications Prescriptions: Lisinopril [Zestril] 5 mg PO DAILY #30 tablet Magnesium Oxide [Magnesium] 400 mg PO DAILY 30 Days Home Medications: Amlodipine [Norvasc] 10 mg PO DAILY 11/30/14 [History] Simvastatin [Zocor] 20 mg PO QPM 11/30/14 [History] Alendronate Sodium [Fosamax] 70 mg PO QWEEK 09/01/15 [History] Calcium Carbonate/Vitamin D3 [Calcium 600 + Vit D Tablet] 1 each PO DAILY [History] Cholecalciferol (D-3) [Vitamin D] 1,000 unit PO DAILY 09/01/15 [History] Cyanocobalamin (Vitamin B-12) [Vitamin B-12] 1,000 mcg SL DAILY 09/01/15 [ History] Isosorbide DInitrate [Isosorbide Dinitrate] 10 mg PO BID 04/30/16 [History] BuPROPion [Wellbutrin] 75 mg PO DAILY 07/25/16 [History] Donepezil HCl [Donepezil HCl Odt] 10 mg PO HS 07/25/16 [History] Memantine [Namenda] 5 mg PO DAILY 07/25/16 [History] Polyethylene Glycol 3350 [Smoothlax] 17 gm PO DAILY PRN 07/25/16 [History] RisperiDONE [RisperDAL] 0.25 mg PO DAILY 07/25/16 [History] Sertraline [Zoloft] 25 mg PO DAILY 07/25/16 [History] TraZODone 25 mg PO HS 07/25/16 [History] Diphenoxylate/Atropine [Lomotil 2.5 mg/0.025 mg] 2 tab PO QID PRN #0 tablet [Rx] Lisinopril [Zestril] 5 mg PO DAILY #30 tablet 07/30/16 [Rx] Magnesium Oxide [Magnesium] 400 mg PO DAILY 30 Days 07/30/16 [Rx] Omeprazole [PriLOSEC] 20 mg PO DAILY@0630 capsule. 07/30/16 [Rx] Ondansetron [Zofran] 4 mg IVP Q8HR PRN #0 vial 07/30/16 [Rx] Allergies/Adverse Reactions: Allergies Oxycodone [From Percocet] Allergy (Verified 07/25/16 10:59) hallucinations prednisone Allergy (Verified 07/25/16 10:59) lip swelling Sulfa (Sulfonamide Antibiotics) Allergy (Verified 07/25/16 10:59) Rash gabapentin Adverse Reaction (Verified 07/25/16 10:59) Confusion hydrocodone [From [place]] Adverse Reaction (Verified 07/25/16 10:59) Confusion meloxicam [From Mobic] Adverse Reaction (Verified 07/25/16 10:59) leg swelling - Respiratory Orders Smoking Cessation: Smoking cessation has been advised. For more information, call the [employer] Tobacco Quit Line at 1-166-HPVO-NOW. - Ancillary Orders May use pressure relief devices daily prn, May consult with Dentist, Kiln Furniture Caster, Finishing Frame Runner PRN - Advance Directives Living Will: No Power of Milliner Helper: No Code Status: DNR-Arrest - Mobility Orders Ambulate (with assist devices.), Other (perPT) - Rehabiliation Orders Rehab Potential: Fair Rehab Orders: Evaluation for Physical Therapy, Evaluation for Occupational Therapy - Diet Orders No Added Salt (DEAN), Cardiac CERTIFICATION: I certify that the transfer of the above named patient to an Extended Care Facility is necessary for the continuing treatment of the diagnosis listed. The above information is true and accurate reflection of patient's current condition. Confidential - Redisclosure prohibited without a patient's written consent.
[2016-07-30 11:49] VITALS: BP 126/64
== END 2016-07-30 14:43 | DRG 683 ==
LOC: 2ANU 10:27 → EMEROO 10:27 → 2ANU 18:20
PROVIDERS: ADMIT Internal Medicine Endocrinology, Diabetes & Metabolism; ATTEND Internal Medicine

== ENCOUNTER 2017-05-17 15:00 | Inpatient (IN) ==
[2017-05-17] MEDS ORDERED: 0.9 % Sodium Chloride 1,000 ML IVC ONE (16:13)
--- NOTE | 2017-05-17 16:16 | Emergency Department Note ---
Disposition Clinical Impression: Altered mental state Qualifiers: Altered mental status type: unspecified Qualified Code(s): R41.82 - Altered mental status, unspecified Dementia Qualifiers: Dementia type: unspecified type Dementia behavioral disturbance: without behavioral disturbance Qualified Code(s): F03.90 - Unspecified dementia without behavioral disturbance Anemia Qualifiers: Folate deficiency anemia type: unspecified folate deficiency Disposition: Admitted As Inpatient Condition: Fair Referrals: Samia Ariza MD [Primary Care Provider] - Forms: ED Satisfaction Letter, Work/School Release Time of Disposition: 19:07 Altered Mental Status HPI - General Chief Complaint: ED General Medical Stated Complaint: UTI, rectal bleeding, behavior issues Time Seen by Provider: 05/17/17 15:53 Source: patient Mode of arrival: ambulatory Limitations: no limitations Nursing Notes Reviewed: Yes Vital Signs Reviewed: Yes - History of Present Illness HPI Narrative: 87-year-old female history of recent UTI, dementia, presents after episode of altered mental status, per her daughter who is at bedside, she is on hospice, but may need a revoke to be admitted to the hospital, at the urging of her kidney doctor Dr. Martin, she has been having strange behavior including hitting her head against the table and the sink in the bathroom repeatedly over the last few weeks. patient says there is recent history of rectal bleeding, and possible rectal prolapse, the patient states that she has no idea what is going on and she has no idea she is here. I asked her why she has been hitting her head on the table and she states she does not know. Patient is alert and oriented to self and date, but she does not give much of the history daughter denies, the patient's mostly stoic and quiet during exam. complaint: altered mental status, confusion Onset (ago): hour(s) Timing confirmed by: family member Pain Severity: mild Pain Scale: 3 Consistency of Symptoms: getting worse Associated symptoms: Denies: chest pain, cough, diaphoresis, fever, chills, headaches, loss of appetite, malaise - Related Data Home Medications Medication Instructions Recorded Confirmed Amlodipine [Norvasc] 10 mg PO DAILY 11/30/14 02/05/17 Simvastatin [Zocor] 20 mg PO QPM 11/30/14 02/05/17 Alendronate Sodium [Fosamax] 70 mg PO QWEEK 09/01/15 02/05/17 Calcium Carbonate/Vitamin D3 1 each PO DAILY 09/01/15 02/05/17 [Calcium 600 + Vit D Tablet] Cholecalciferol (D-3) [Vitamin D] 1,000 unit PO DAILY 09/01/15 02/05/17 Cyanocobalamin (Vitamin B-12) 1,000 mcg SL DAILY 09/01/15 02/05/17 [Vitamin B-12] Isosorbide DInitrate [Isosorbide 10 mg PO BID 04/30/16 02/05/17 Dinitrate] BuPROPion [Wellbutrin] 75 mg PO DAILY 07/25/16 02/05/17 Memantine [Namenda] 5 mg PO DAILY 07/25/16 02/05/17 Sertraline [Zoloft] 25 mg PO DAILY 07/25/16 02/05/17 risperiDONE [RisperDAL] 0.25 mg PO DAILY 07/25/16 02/05/17 traZODone [TraZODone] 50 mg PO HS 07/25/16 02/05/17 Polyethylene Glycol 3350 [Gavilax] 8.5 gm PO PRN PRN 10/01/16 02/05/17 Acetaminophen [Non-Aspirin] 325 mg PO Q4HR PRN 02/05/17 02/05/17 Calcium Carbonate/Vitamin D3 1 each PO DAILY 02/05/17 02/05/17 [Calcium 600 + Vit D Tablet] Donepezil [Aricept] 10 mg PO DAILY 02/05/17 02/05/17 Ferrous Sulfate [Iron] 325 mg PO DAILY 02/05/17 02/05/17 Mirtazapine [Remeron] 15 mg PO HS 02/05/17 02/05/17 Potassium Chloride [K-Tab ER] 20 meq PO DAILY 02/05/17 02/05/17 Previous Rx's Medication Instructions Recorded Lisinopril [Zestril] 5 mg PO DAILY #30 tablet 07/30/16 Magnesium Oxide [Magnesium] 400 mg PO DAILY 30 Days capsule 07/30/16 Omeprazole [PriLOSEC] 20 mg PO DAILY@0630 capsule. 07/30/16 Allergies Allergy/AdvReac Type Severity Reaction Status Date / Time Oxycodone [From Percocet] Allergy hallucinati Verified 07/25/16 10:59 ons prednisone Allergy lip Verified 07/25/16 10:59 swelling Sulfa (Sulfonamide Allergy Rash Verified 07/25/16 10:59 Antibiotics) gabapentin AdvReac Confusion Verified 07/25/16 10:59 hydrocodone [From [place]] AdvReac Confusion Verified 07/25/16 10:59 meloxicam [From Mobic] AdvReac leg Verified 07/25/16 10:59 swelling All systems ED: reviewed and negative except as stated. (Limited secondary to patient's mental status.) Review of Systems: As Per HPI Constitutional: Denies: fever Eyes: Denies: eye pain ENT ED: Denies: ear pain Cardiovascular: Denies: chest pain, palpitations Respiratory: Denies: cough Gastrointestinal: Denies: abdominal pain Past Medical History - Past Medical History Attestation: Yes The following information was validated with the patient. Source: patient Medical history: Reports: arthritis, coronary artery disease, dementia, hyperlipidemia, hypertension, osteoporosis, renal disease, other Surgical history: Reports: appendectomy, hysterectomy, other Psychiatric history: Reports: anxiety, depression, other FRUIT CHECKER history: Reports: no FRUIT CHECKER history - Social History Smoking Status: Never smoker Smokeless Tobacco Status: No Alcohol use: Reports: none Drug use: Reports: none Physical Exam Constitutional: Elderly cachectic female, appears dehydrated and pale H: contusion to right forehead Eyes: PERRLA, sclera anicteric, conjunctival pallor ENT & Mouth: MM dry Neck: normal inspection, neck is supple Resp: CTA bilaterally, no resp distress CV: RRR, no m/g/r GI: normal inspection, soft, no guarding or rigidity Neuro: A&O3, CNII-XII grossly intact, GE Skin: poor turgor - General Limitations: no limitations General appearance: alert, in no apparent distress Course Course Narrative: 87-year-old female with her behavior multiple complaints per her daughter, she is on hospice, she has dementia most likely but this has not been formally diagnosed, I am concerned because she has been hitting her head on the table, concerned that she may have a ICH with a head CT, basic lab work CBC BMP troponin EKG, plan for CT of abdomen as well, given that she has some abdominal distention peritoneal signs, abdominal pain, possible constipation, versus ileus , also patient will urinalysis, as she is prone to urinary tract infections because of altered mental status in this elderly weak frail female - Reevaluation(s) Reevaluation #1: No acute findings on CT scan of abdomen, plan is for admission to hospitalist services spoke with Joseph the nurse practitioner, admission for possible placement name and is still nursing consideration of possible plan for [facility] as his [facility] hospice coumadinizing the patient very frequently, she no acute findings on head CT her CT of her abdomen, her anemia is stable and she had a negative stool occult from 4 days ago no evidence of new anemia. Patient admitted to the hospitalist service Time: 19:08 Vital Signs Temperature 98.9 F 05/17/17 15:12 Pulse Rate 64 05/17/17 15:12 Respiratory Rate 18 05/17/17 15:12 Blood Pressure 139/70 05/17/17 15:12 O2 Sat by Pulse Oximetry 96 05/17/17 15:12 Temperature 98.9 F 05/17/17 15:12 Pulse Rate 68 05/17/17 18:45 Respiratory Rate 18 05/17/17 18:45 Blood Pressure 169/74 05/17/17 18:45 O2 Sat by Pulse Oximetry 98 05/17/17 18:45 Oxygen Delivery Oxygen Delivery Room Air Altered Mental Status - Lab Data Result diagrams: 05/17/17 16:35 05/17/17 16:35 Lab Results 05/17/17 05/17/17 05/17/17 Range/Units 16:35 16:35 16:35 WBC 5.8 (4.3-11.1) K/mcL RBC 3.36 L (3.82-4.97) M/mcL Hgb 10.2 L (11.5-15.4) g/dL Hct 31.7 L (35.3-44.9) % MCV 94.3 (83.0-100.0) fL MCH 30.4 (28.0-33.3) pg MCHC 32.2 (31.6-35.5) g/dL RDW 14.2 (11.5-14.5) % Plt Count 245 (140-400) K/mcL MPV 10.0 (9.4-12.4) fL Immature Gran % 0.2 (0-4) % Seg Neutrophils % 66.3 % Lymphocytes % 20.7 % Monocytes % 7.2 % Eosinophils % 4.6 % Basophils % 1.0 % Neutrophils # 3.9 (1.6-8.9) K/mcL Lymphocytes # 1.2 (0.6-4.6) K/mcL Monocytes # 0.4 (0.0-1.3) K/mcL Eosinophils # 0.3 (0.0-0.6) K/mcL Basophils # 0.1 (0.0-0.2) K/mcL PT 11.6 (9.4-12.1) Seconds INR 1.1 Sodium 137 (136-145) mEq/L Potassium 4.4 (3.5-5.1) mEq/L Chloride 106 (98-107) mEq/L Carbon Dioxide 23 (23-29) mEq/L BUN 26 H (8-23) mg/dL Creatinine 0.92 (0.60-1.20) mg/dL Est GFR ( Amer) > 60 (> 60) Est GFR (Non-Af Amer) 57 L (> 60) BUN/Creatinine Ratio 28 H (6-26) Glucose 119 H (70-105) mg/dL Calculated Osmolality 290 (280-300) Calcium 9.5 (8.6-10.3) mg/dL Total Bilirubin 0.2 L (0.3-1.0) mg/dL Direct Bilirubin 0.0 (0.0-0.2) mg/dL Indirect Bilirubin 0.2 (0.0-1.2) mg/dL AST 13 (13-39) Units/L ALT 10 (7-52) Units/L Alkaline Phosphatase 59 (34-104) Units/L Troponin I (< 0.04) ng/mL Serum Total Protein 6.8 (6.4-8.9) g/dL Albumin 4.0 (3.5-5.7) g/dL Globulin 2.8 (2.4-3.5) g/dL Albumin/Globulin Ratio 1.4 (1.1-2.2) TSH 1.901 (0.340-5.600) mcIU/mL Urine Color (Yellow) Urine Clarity (Clear) Urine pH (5.0-8.0) pH Units Ur Specific [place] (1.010-1.025) Urine Protein (Neg-Trace) mg/dL Urine Glucose (UA) (Normal) mg/dL Urine Ketones (Negative) mg/dL Urine Blood (Negative) Urine Nitrite (Negative) Urine Bilirubin (Negative) Urine Urobilinogen (Normal) mg/dL Ur Leukocyte Esterase (Negative) Urine Microscopic RBC (0-3) per hpf Urine Microscopic WBC (0-3) per hpf Ur Squamous Epith Cells (None-Few) per lpf Urine Bacteria (None-Few) per hpf Hyaline Casts (None-Few) per lpf Ur Culture Indicated? (NO) Urine Opiates Screen (Yqvrmw=576) ng/mL Ur Barbiturates Screen (Hbgyui=688) ng/mL Ur Phencyclidine Scrn (Cutoff=25) ng/mL Ur Amphetamines Screen (Qhdekm=3126) ng/mL U Benzodiazepines Scrn (Nbddwz=485) ng/mL Urine Cocaine Screen (Cutoff= 300) ng/mL U Marijuana (THC) Screen (Cutoff = 50) ng/mL Ethyl Alcohol < 10 (0-10) mg/dL 05/17/17 05/17/17 05/17/17 Range/Units 16:35 16:45 16:46 WBC (4.3-11.1) K/mcL RBC (3.82-4.97) M/mcL Hgb (11.5-15.4) g/dL Hct (35.3-44.9) % MCV (83.0-100.0) fL MCH (28.0-33.3) pg MCHC (31.6-35.5) g/dL RDW (11.5-14.5) % Plt Count (140-400) K/mcL MPV (9.4-12.4) fL Immature Gran % (0-4) % Seg Neutrophils % % Lymphocytes % % Monocytes % % Eosinophils % % Basophils % % Neutrophils # (1.6-8.9) K/mcL Lymphocytes # (0.6-4.6) K/mcL Monocytes # (0.0-1.3) K/mcL Eosinophils # (0.0-0.6) K/mcL Basophils # (0.0-0.2) K/mcL PT (9.4-12.1) Seconds INR Sodium (136-145) mEq/L Potassium (3.5-5.1) mEq/L Chloride (98-107) mEq/L Carbon Dioxide (23-29) mEq/L BUN (8-23) mg/dL Creatinine (0.60-1.20) mg/dL Est GFR ( Amer) (> 60) Est GFR (Non-Af Amer) (> 60) BUN/Creatinine Ratio (6-26) Glucose (70-105) mg/dL Calculated Osmolality (280-300) Calcium (8.6-10.3) mg/dL Total Bilirubin (0.3-1.0) mg/dL Direct Bilirubin (0.0-0.2) mg/dL Indirect Bilirubin (0.0-1.2) mg/dL AST (13-39) Units/L ALT (7-52) Units/L Alkaline Phosphatase (34-104) Units/L Troponin I < 0.03 (< 0.04) ng/mL Serum Total Protein (6.4-8.9) g/dL Albumin (3.5-5.7) g/dL Globulin (2.4-3.5) g/dL Albumin/Globulin Ratio (1.1-2.2) TSH (0.340-5.600) mcIU/mL Urine Color Yellow (Yellow) Urine Clarity Clear (Clear) Urine pH 5.0 (5.0-8.0) pH Units Ur Specific [place] 1.022 (1.010-1.025) Urine Protein 30 H (Neg-Trace) mg/dL Urine Glucose (UA) Normal (Normal) mg/dL Urine Ketones Negative (Negative) mg/dL Urine Blood Negative (Negative) Urine Nitrite Negative (Negative) Urine Bilirubin Negative (Negative) Urine Urobilinogen Normal (Normal) mg/dL Ur Leukocyte Esterase Negative (Negative) Urine Microscopic RBC 0-3 (0-3) per hpf Urine Microscopic WBC 0-3 (0-3) per hpf Ur Squamous Epith Cells Moderate H (None-Few) per lpf Urine Bacteria None Seen (None-Few) per hpf Hyaline Casts None Seen (None-Few) per lpf Ur Culture Indicated? NO (NO) Urine Opiates Screen Negative (Esiqkm=267) ng/mL Ur Barbiturates Screen Negative (Tzcvay=487) ng/mL Ur Phencyclidine Scrn Negative (Cutoff=25) ng/mL Ur Amphetamines Screen Negative (Uyvayl=9825) ng/mL U Benzodiazepines Scrn Negative (Mcggyt=187) ng/mL Urine Cocaine Screen Negative (Cutoff= 300) ng/mL U Marijuana (THC) Screen Negative (Cutoff = 50) ng/mL Ethyl Alcohol (0-10) mg/dL - Radiology Data Radiology results reviewed: Yes I reviewed the patient's radiology results. - EKG Data EKG attestation: Yes I reviewed and interpreted this EKG. EKG shows normal: sinus rhythm Rate: normal (64 bpm IL 165 QRS 80 QTC 400 units ischemic changes.) Rhythm: NSR TPA Checklist - LKW: 3-4.5 hrs Add. Warnings/Precautions Patient/family understanding: The patient/family members have been counseled and understood the risk, benefit , and alternatives of treatment. Attestation Statement - Attestation Attestation: I, Simon Hicks DO, examined this patient [id number] and my medical decision-making was reviewed with Dr. Chin Rosas, Resident Physician. I agree with the documented findings, disposition and treatment plan as described except to the extent set forth below. Please see my progress notes for details. 87-year-old female presents to the emergency room with confusion. Patient also has flat affect. The family was concerned because over the last several weeks the patient and found in the bathroom hitting her head off the sink. She does have a psychiatric history no history of self harm or mutilation. Patient on presentation to the emergency room had vital signs reviewed and they are stable. Patient's head is atraumatic pupils are equal and reactive she has no visible signs of bruising trauma or injury to the face. She has no midline tenderness to the cervical thoracic or lumbar spine. Chest wall does not have any reproducible symptoms or pain. Lungs are clear. Heart is regular. Abdomen is soft with some mild suprapubic tenderness but no guarding or rigidity. Patient moves all 4 extremities. She does not have any pitting edema or swelling. Patient's neurologic evaluation is at baseline according to the family who is at the bedside. Patient is concerning for potential progression of her psychiatric issues secondary to infection. Urinalysis chest x-ray and screening laboratory workup will be completed. Patient is denying chest pain shortness of breath headache vision changes nausea vomiting or diarrhea. She directly has no acute symptoms at this time. Family is just concerned about her well-being. Disposition pending workup and treatment course. See detailed documentation of physical exam, medical intervention, medical decision-making and disposition and the resident physician's note. No critical care of this patient at this time. 1900 Patient found to have negative laboratory workup for urinary tract infections and other infectious etiology. Patient will be admitted for symptomatic flat affect and altered mentation. Patient otherwise is resting comfortably in the bed. Patient admission passes completed this time family informed. Disposition to be completely by the resident physician.
[2017-05-17 16:54] LABS: Basophils # 0.1 K/mcL (0.0-0.2); Eosinophils # 0.3 K/mcL (0.0-0.6); Eosinophils % 4.6 %; Hematocrit 31.7 % (35.3-44.9); Hemoglobin 10.2 g/dL (11.5-15.4); Immature Granulocytes % 0.2 % (0-4); Lymphocytes # 1.2 K/mcL (0.6-4.6); Lymphocytes % 20.7 %; Mean Corpuscular HGB Conc 32.2 g/dL (31.6-35.5); Mean Corpuscular Hemoglobin 30.4 pg (28.0-33.3); Mean Corpuscular Volume 94.3 fL (83.0-100.0); Monocytes # 0.4 K/mcL (0.0-1.3); Monocytes % 7.2 %; Neutrophils # 3.9 K/mcL (1.6-8.9); Platelet Count 245 K/mcL (140-400); Red Blood Count 3.36 M/mcL (3.82-4.97); Red Cell Distribution Width 14.2 % (11.5-14.5); Segmented Neutrophils % 66.3 %
[2017-05-17 16:57] LABS: INR 1.1; Prothrombin Time 11.6 Seconds (9.4-12.1)
[2017-05-17 17:04] LABS: Bilirubin,Urine Negative (Negative); Blood,Urine Negative (Negative); Clarity,Urine Clear (Clear); Color,Urine Yellow (Yellow); Glucose,Urine (UA) Normal (Normal); Ketones,Urine Negative (Negative); Leukocyte Esterase,Urine Negative (Negative); Nitrite,Urine Negative (Negative); Protein,Urine 30 mg/dL (Neg-Trace); Specific Gravity,Urine 1.022 (1.010-1.025); Urobilinogen,Urine Normal (Normal)
[2017-05-17 17:06] LABS: Bacteria,Urine None Seen per hpf (None-Few); Hyaline Casts,Urine None Seen per lpf (None-Few); RBC,Urine 0-3 per hpf (0-3); Squamous Epithelial Cell,Urine Moderate per lpf (None-Few); WBC,Urine 0-3 per hpf (0-3)
[2017-05-17 17:08] LABS: Amphetamine Screen,Urine Negative ng/mL (Cutoff=1000); Barbiturate Screen,Urine Negative ng/mL (Cutoff=200); Benzodiazepines Screen,Urine Negative ng/mL (Cutoff=200); Cannabinoid Screen,Urine Negative ng/mL (Cutoff = 50); Cocaine Screen,Urine Negative ng/mL (Cutoff= 300); Opiate Screen,Urine Negative ng/mL (Cutoff=300); Phencyclidine Screen,Urine Negative ng/mL (Cutoff=25)
[2017-05-17 17:09] LABS: Ethanol < 10 mg/dL (0-10)
[2017-05-17 17:27] LABS: Alanine Aminotransferase 10 Units/L (7-52); Albumin/Globulin Ratio 1.4 (1.1-2.2); Alkaline Phosphatase 59 Units/L (34-104); Aspartate Amino Transferase 13 Units/L (13-39); BUN/Creatinine Ratio 28 (6-26); Bilirubin,Indirect 0.2 mg/dL (0.0-1.2); Bilirubin,Total 0.2 mg/dL (0.3-1.0); Blood Urea Nitrogen 26 mg/dL (8-23); Calcium 9.5 mg/dL (8.6-10.3); Carbon Dioxide 23 mEq/L (23-29); Chloride 106 mEq/L (98-107); Globulin 2.8 g/dL (2.4-3.5); Glucose 119 mg/dL (70-105); Osmolality,Calculated 290 (280-300); Potassium 4.4 mEq/L (3.5-5.1); Sodium 137 mEq/L (136-145); Total Protein 6.8 g/dL (6.4-8.9); eGFR For African Americans > 60 (> 60); eGFR For Non-African Americans 57 (> 60)
[2017-05-17 17:40] LABS: Thyroid Stimulating Hormone 1.901 mcIU/mL (0.340-5.600)
[2017-05-17] MEDS ORDERED: Naloxone 0.4 MG/ML INJ IVP PRN (20:04)
[2017-05-17] MEDS ORDERED: Acetaminophen 325 MG TABLET PO PRN (20:13)
--- NOTE | 2017-05-17 21:07 | Internal Med History&Physical ---
Date of Encounter: 05/17/17 Time of Encounter: 19:30 Assessment and Plan (1) Depression Current visit: Yes Status: Acute Pt has hx of depression on multiple depression meds. She has behavior changes, may consider psych consult if medically there is no finding to explain the behavior change. Cont home med for now. Qualifiers: Depression Type: major depressive disorder Major depression recurrence: recurrent Active/Remission status: remission status unspecified Qualified Code(s): F33.9 - Major depressive disorder, recurrent, unspecified (2) Dementia Current visit: Yes Status: Acute Will place PT/OT evaluation and closely monitor pt. Cont home meds Qualifiers: Dementia type: unspecified type Dementia behavioral disturbance: without behavioral disturbance Qualified Code(s): F03.90 - Unspecified dementia without behavioral disturbance (3) DVT prophylaxis Current visit: No Status: Acute EPCDs. No AC b/o anemia. (4) Dehydration Current visit: No Status: Acute Pt's Lab shows BUN/Cr ratio 28. 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 Will give her low rate 0.9NS iv and f/u BMP (5) Encephalopathy acute Current visit: No Status: Acute Pt has behavior change, etiology undetermined. CT head negative. There is no signs of infection, UA and CXR negative. Pt has mild dehydration. - Will give IVF for dehydration. - TSH and calcium wnl - Will check 25-oh Vit D, Vit B12, Folate, ammonia, and morning cortisal level - May consider psych consult if no medical condition to explain the behavior changes and pt's encephalopathy persists. - Fall precaution, closely monitor pt. (6) Anemia Current visit: No Status: Chronic Chronic. Did FOBT one week ago which was negative. F/U H/H Qualifiers: Other causes of anemia: chronic disease, other Qualified Code(s): D63.8 - Anemia in other chronic diseases classified elsewhere Internal Medicine - H&P: HPI Chief complaint: Altered mental status Admitted From: Home Plans for Post Hospital Care: Transfer Inp Rehab Fac History of present illness: Ms. Barrett is a 87 year old female with history of hypertension, depression, dementia, CKD, SIADH, present to ER for behavior change for about one week. Patient has baseline dementia and not communicate well. History obtained from patient's daughter at bedside. Patient has UTI and was treated with Cipro for one week, ended treatment on Saturday. Patient has recent behavior change, hit her head deliberately on the sink. Patient is generally awake alert. She has no fever, no nausea, no vomiting. Patient has diarrhea for about 2 days. Patient does not complaining any pain or shortness of breath. In emergency room , CT head negative. CT abd unremarkable. Patient was admitted for further management. I have discussed CODE STATUS with pt's daughter and was told pt is DNR/DNI. Past Med Surg Social Fam HX - Past Medical History Medical history: arthritis, coronary artery disease, dementia, hyperlipidemia, hypertension, osteoporosis, renal disease, other Psychiatric history: anxiety, depression, other - Past Surgical History Surgical History: appendectomy, hysterectomy, other - Social History Smoking Status: Never smoker Smokeless Tobacco Status: No Alcohol use: none Drug use: none - Family History Mother Family Member Ethnicity: Non- Living Status: Hx Family Cardiac Disorders: No Hx Family Respiratory Disorders: No Hx Family Cancer: No Hx Family GI Disorders: No Hx Family Endocrine Disorder: No Hx Family Neuromuscular Disorders: No Hx Family Neurologic Disorders: Yes Hx Family HEENT Disorders: No Hx Family Autoimmune Disorders: Yes Internal Medicine - H&P: Meds Amlodipine [Norvasc] 10 mg PO DAILY 11/30/14 [History] Simvastatin [Zocor] 20 mg PO QPM 11/30/14 [History] Alendronate Sodium [Fosamax] 70 mg PO QWEEK 09/01/15 [History] Calcium Carbonate/Vitamin D3 [Calcium 600 + Vit D Tablet] 1 each PO DAILY [History] Cholecalciferol (D-3) [Vitamin D] 1,000 unit PO DAILY 09/01/15 [History] Cyanocobalamin (Vitamin B-12) [Vitamin B-12] 1,000 mcg SL DAILY 09/01/15 [ History] Isosorbide DInitrate [Isosorbide Dinitrate] 10 mg PO BID 04/30/16 [History] BuPROPion [Wellbutrin] 75 mg PO DAILY 07/25/16 [History] Memantine [Namenda] 5 mg PO DAILY 07/25/16 [History] Sertraline [Zoloft] 25 mg PO DAILY 07/25/16 [History] risperiDONE [RisperDAL] 0.25 mg PO HS 07/25/16 [History] traZODone [TraZODone] 25 mg PO HS 07/25/16 [History] Lisinopril [Zestril] 5 mg PO DAILY #30 tablet 07/30/16 [Rx] Magnesium Oxide [Magnesium] 400 mg PO DAILY 30 Days capsule 07/30/16 [Rx] Acetaminophen [Non-Aspirin] 325 mg PO Q4HR PRN 02/05/17 [History] Donepezil [Aricept] 10 mg PO HS 02/05/17 [History] Ferrous Sulfate [Iron] 325 mg PO DAILY 02/05/17 [History] Mirtazapine [Remeron] 15 mg PO HS 02/05/17 [History] Potassium Chloride [K-Tab ER] 20 meq PO DAILY 02/05/17 [History] 3 Allergy/AdvReac Type Severity Reaction Status Date / Time Oxycodone [From Percocet] Allergy hallucinati Verified 07/25/16 10:59 ons prednisone Allergy lip Verified 07/25/16 10:59 swelling Sulfa (Sulfonamide Allergy Rash Verified 07/25/16 10:59 Antibiotics) gabapentin AdvReac Confusion Verified 07/25/16 10:59 hydrocodone [From [place]] AdvReac Confusion Verified 07/25/16 10:59 meloxicam [From Mobic] AdvReac leg Verified 07/25/16 10:59 swelling All Systems PM: A 10-system review of systems was performed and is negative for pertinent findings except as documented above in the HPI. - Constitutional Vitals: Temp Pulse Resp BP Pulse Ox 98.9 F 68 18 169/74 98 05/17/17 15:12 05/17/17 18:45 05/17/17 18:45 05/17/17 18:45 05/17/17 18:45 General appearance: Present: A&O X 1, no acute distress, answers questions appropriately - Head Head exam: Present: atraumatic, normocephalic - Eye Eye exam: Present: PERRL, conjuntiva pink, sclera anicteric Pupils: Present: PERRL - Neck Neck exam general surgery: Present: supple, trachea midline. Absent: lymphadenopathy - Respiratory Respiratory exam: Present: CTAB. Absent: accessory muscle use, rales, rhonchi, wheezes - Cardiovascular Cardiovascular exam: Present: RRR, +S1, +S2. Absent: diastolic murmur, gallop, rubs, systolic murmur - GI/Abdominal GI/Abdominal exam: Present: normal bowel sounds, soft, no peritoneal signs. Absent: distended, tenderness - Extremities Exam Extremities exam: Present: warm, radial pulses palpable and symmetrical. Absent : calf tenderness, cyanotic, pedal edema - Neurological Exam Neurological exam: Present: CN II-XII intact, no focal deficits. Absent: pronater drift, facial droop, speech deficit - Skin Skin exam: Present: dry, intact Internal Med - H&P Results - Labs CBC & Chem 7: 05/17/17 16:35 05/17/17 16:35
[2017-05-17] MEDS: traZODone 50 MG TABLET PO SCH (21:49)
[2017-05-17] MEDS: Mirtazapine 15 MG TABLET PO SCH (21:50)
[2017-05-17] MEDS: 0.9 % Sodium Chloride 1,000 ML IVC SCH (21:50)
[2017-05-17] MEDS: risperiDONE 0.25 MG TABLET PO SCH (21:50)
[2017-05-18 03:07] LABS: Basophils # 0.1 K/mcL (0.0-0.2); Basophils % 0.8 %; Eosinophils # 0.3 K/mcL (0.0-0.6); Eosinophils % 5.1 %; Hemoglobin 9.1 g/dL (11.5-15.4); Immature Granulocytes % 0.5 % (0-4); Lymphocytes # 1.3 K/mcL (0.6-4.6); Lymphocytes % 22.1 %; Mean Corpuscular HGB Conc 31.4 g/dL (31.6-35.5); Mean Corpuscular Hemoglobin 29.5 pg (28.0-33.3); Mean Corpuscular Volume 94.2 fL (83.0-100.0); Mean Platelet Volume 9.5 fL (9.4-12.4); Monocytes # 0.5 K/mcL (0.0-1.3); Monocytes % 8.4 %; Neutrophils # 3.8 K/mcL (1.6-8.9); Platelet Count 217 K/mcL (140-400); Red Blood Count 3.08 M/mcL (3.82-4.97); Segmented Neutrophils % 63.1 %
[2017-05-18 03:31] LABS: Alanine Aminotransferase 11 Units/L (7-52); Albumin 3.5 g/dL (3.5-5.7); Albumin/Globulin Ratio 1.4 (1.1-2.2); Alkaline Phosphatase 52 Units/L (34-104); Aspartate Amino Transferase 14 Units/L (13-39); BUN/Creatinine Ratio 27 (6-26); Bilirubin,Total 0.3 mg/dL (0.3-1.0); Blood Urea Nitrogen 20 mg/dL (8-23); Calcium 8.8 mg/dL (8.6-10.3); Carbon Dioxide 27 mEq/L (23-29); Chloride 105 mEq/L (98-107); Globulin 2.5 g/dL (2.4-3.5); Glucose 85 mg/dL (70-105); Magnesium 1.5 mg/dL (1.6-2.6); Osmolality,Calculated 286 (280-300); Phosphorous 3.1 mg/dL (2.7-4.5); Sodium 137 mEq/L (136-145); eGFR For African Americans > 60 (> 60); eGFR For Non-African Americans > 60 (> 60)
[2017-05-18 03:50] LABS: Folate 20.6 ng/mL (3.0-16.0)
[2017-05-18] MEDS: Cholecalciferol (D-3) 1,000 UNIT TABLET PO SCH (09:27)
[2017-05-18] MEDS: amLODIPine 5 MG TABLET PO SCH (09:27)
[2017-05-18] MEDS: Cyanocobalamin (B-12) 1,000 MCG TABLET PO SCH (09:27)
[2017-05-18] MEDS: Magnesium Oxide 400 MG TABLET PO SCH (09:27)
--- NOTE | 2017-05-18 17:06 | Internal Med Progress Note ---
Date of Encounter: 05/18/17 Time of Encounter: 11:04 - Assessment and plan (1) Encephalopathy acute Current Visit: No Status: Acute Assessment and plan: Patient had change in behavior she was hitting her head deliberately on the sink CT of head is negative no signs and symptoms of infection UA and chest x- ray negative. She is dehydrated we are giving her fluids. She seems to be pleasant and cooperative at present time TSH and calcium within normal limits Rest of lab work seems to be unremarkable Concerned this may be related to worsening dementia/oppression we will consult psych (2) Dementia Current Visit: Yes Status: Acute Assessment and plan: Continue with home medications PT OT evaluation Qualifiers: Dementia type: other frontotemporal dementia Dementia behavioral disturbance: with behavioral disturbance Qualified Code(s): G31.09 - Other frontotemporal dementia; F02.81 - Dementia in other diseases classified elsewhere with behavioral disturbance; F02.81 - Dementia in other diseases classified elsewhere with behavioral disturbance; F02.81 - Dementia in other diseases classified elsewhere with behavioral disturbance (3) Depression Current Visit: Yes Status: Acute Assessment and plan: She has voiced no suicidal ideations. We will continue with present medications Qualifiers: Depression Type: major depressive disorder Major depression recurrence: recurrent Active/Remission status: remission status unspecified Qualified Code(s): F33.9 - Major depressive disorder, recurrent, unspecified (4) DVT prophylaxis Current Visit: No Status: Acute (5) Anemia Current Visit: No Status: Chronic Assessment and plan: Patient has history of chronic anemia -he had a colonoscopy in 2010 and 2013 with lymphocytic colitis she has a prior history of blood her stools she did have an EGD in January 2014 negative for any bleeding she did have a FOBT one week ago which was negative we will follow her H&H Qualifiers: Anemia type: other cause Other causes of anemia: chronic disease, other Qualified Code(s): D63.8 - Anemia in other chronic diseases classified elsewhere (6) Dehydration Current Visit: No Status: Acute Assessment and plan: Continue with IV fluids Check lab work in a.m. - Time Spent With Patient less than 15 minutes - Subjective Interval history: Patient denies any pain or discomfort at this time, she has a flat affect and does not make eye contact. She is oriented 3 she does follow simple commands. No active bleeding noted. - Constitutional Vitals: Temp Pulse Resp BP Pulse Ox 97.8 F 72 16 156/70 97 05/18/17 16:21 05/18/17 16:21 05/18/17 16:21 05/18/17 16:21 05/18/17 16:21 General appearance: Present: A&O X 1, no acute distress, answers questions appropriately - Head Head exam: Present: atraumatic, normocephalic - Eye Eye exam: Present: PERRL, conjuntiva pink, sclera anicteric Pupils: Present: PERRL - Neck Neck exam general surgery: Present: supple, trachea midline. Absent: lymphadenopathy - Respiratory Respiratory exam: Present: CTAB. Absent: accessory muscle use, rales, rhonchi, wheezes - Cardiovascular Cardiovascular exam: Present: RRR, +S1, +S2. Absent: diastolic murmur, gallop, rubs, systolic murmur - GI/Abdominal GI/Abdominal exam: Present: normal bowel sounds, soft, no peritoneal signs. Absent: distended, tenderness - Extremities Exam Extremities exam: Present: warm, radial pulses palpable and symmetrical. Absent : calf tenderness, cyanotic, pedal edema - Neurological Exam Neurological exam: Present: CN II-XII intact, oriented X3, no focal deficits. Absent: pronater drift, facial droop, speech deficit - Skin Skin exam: Present: dry, intact Internal Medicine: Result - Labs CBC & Chem 7: 05/18/17 02:56 05/18/17 02:56 Labs: Short CBC 05/18/17 Range/Units 02:56 WBC 6.1 (4.3-11.1) K/mcL Hgb 9.1 L (11.5-15.4) g/dL Hct 29.0 L (35.3-44.9) % Plt Count 217 (140-400) K/mcL Neutrophils # 3.8 (1.6-8.9) K/mcL BMP 05/18/17 02:56 Sodium 137 Potassium 4.0 Chloride 105 Carbon Dioxide 27 BUN 20 Creatinine 0.74 Glucose 85 Calcium 8.8 Liver Function 05/18/17 Range/Units 02:56 Total Bilirubin 0.3 (0.3-1.0) mg/dL AST 14 (13-39) Units/L ALT 11 (7-52) Units/L Alkaline Phosphatase 52 (34-104) Units/L Albumin 3.5 (3.5-5.7) g/dL - ABG Interpretation ABG results: PT/INR, D-dimer PT 11.6 Seconds (9.4-12.1) 05/17/17 16:35 Consult Discharge Plan - Plan Referrals: Samia Ariza MD [Primary Care Provider] -
[2017-05-18] MEDS: 0.9 % Sodium Chloride 1,000 ML IVC SCH (18:19)
[2017-05-18 18:37] LABS: C.difficile Toxin A/B by PCR Not detected (Not detect); Campylobacter by PCR Not detected (Not detect); Enteroaggregative E.coli(EAEC) Not detected (Not detect); Enteropathogenic E.coli(EPEC) Not detected (Not detect); Enterotoxigenic E.coli (ETEC) Not detected (Not detect); Plesiomonas shigelloides PCR Not detected (Not detect); Salmonella PCR Not detected (Not detect); Shigalike tox-prod E coli STEC Not detected (Not detect); Vibrio PCR Not detected (Not detect); Vibrio cholerae PCR Not detected (Not detect); Yersinia enterocolitica PCR Not detected (Not detect)
[2017-05-18 18:38] LABS: Adenovirus F 40/41 PCR Not detected (Not detect); Astrovirus PCR Not detected (Not detect); Cryptosporidium by PCR Not detected (Not detect); Cyclospora cayetanensis PCR Not detected (Not detect); Entamoeba histolytica PCR Not detected (Not detect); Giardia lamblia PCR Not detected (Not detect); Norovirus GI/GII PCR Not detected (Not detect); Rotavirus A PCR Not detected (Not detect); Sapovirus PCR Not detected (Not detect); Shig/EnteroinvasiveE coli EIEC Not detected (Not detect)
[2017-05-18] MEDS: Mirtazapine 15 MG TABLET PO SCH (22:17)
[2017-05-18] MEDS: risperiDONE 0.25 MG TABLET PO SCH (22:17)
[2017-05-18] MEDS: traZODone 50 MG TABLET PO SCH (22:17)
[2017-05-19 07:57] LABS: Basophils # 0.1 K/mcL (0.0-0.2); Basophils % 1.1 %; Eosinophils # 0.3 K/mcL (0.0-0.6); Eosinophils % 4.8 %; Hemoglobin 10.5 g/dL (11.5-15.4); Immature Granulocytes % 0.2 % (0-4); Lymphocytes # 1.1 K/mcL (0.6-4.6); Lymphocytes % 19.2 %; Mean Corpuscular HGB Conc 32.8 g/dL (31.6-35.5); Mean Corpuscular Hemoglobin 29.8 pg (28.0-33.3); Mean Corpuscular Volume 90.9 fL (83.0-100.0); Mean Platelet Volume 9.8 fL (9.4-12.4); Monocytes # 0.5 K/mcL (0.0-1.3); Monocytes % 8.3 %; Neutrophils # 3.8 K/mcL (1.6-8.9); Platelet Count 248 K/mcL (140-400); Red Blood Count 3.52 M/mcL (3.82-4.97); Red Cell Distribution Width 14.1 % (11.5-14.5); Segmented Neutrophils % 66.4 %
[2017-05-19 08:11] LABS: BUN/Creatinine Ratio 24 (6-26); Blood Urea Nitrogen 21 mg/dL (8-23); Calcium 9.2 mg/dL (8.6-10.3); Carbon Dioxide 25 mEq/L (23-29); Chloride 104 mEq/L (98-107); Glucose 89 mg/dL (70-105); Osmolality,Calculated 282 (280-300); Potassium 4.2 mEq/L (3.5-5.1); Sodium 135 mEq/L (136-145); eGFR For African Americans > 60 (> 60); eGFR For Non-African Americans > 60 (> 60)
[2017-05-19] MEDS: Magnesium Oxide 400 MG TABLET PO SCH (09:49)
[2017-05-19] MEDS: amLODIPine 5 MG TABLET PO SCH (09:49)
[2017-05-19] MEDS: Cyanocobalamin (B-12) 1,000 MCG TABLET PO SCH (09:49)
[2017-05-19] MEDS: Cholecalciferol (D-3) 1,000 UNIT TABLET PO SCH (09:55)
--- NOTE | 2017-05-19 19:02 | Internal Med Progress Note ---
Date of Encounter: 05/19/17 Time of Encounter: 18:56 - Assessment and plan (1) Encephalopathy acute Current Visit: No Status: Acute Assessment and plan: Patient had change in behavior she was hitting her head deliberately on the sink CT of head is negative no signs and symptoms of infection UA and chest x- ray negative. According to patient's daughter she appears to be at baseline pleasant and cooperative TSH and calcium within normal limits Rest of lab work seems to be unremarkable His be related to dementia -we will continue with medication (2) Dementia Current Visit: Yes Status: Acute Assessment and plan: Continue with home medications PT OT evaluation Social service consult Qualifiers: Dementia type: other frontotemporal dementia Dementia behavioral disturbance: with behavioral disturbance Qualified Code(s): G31.09 - Other frontotemporal dementia; F02.81 - Dementia in other diseases classified elsewhere with behavioral disturbance; F02.81 - Dementia in other diseases classified elsewhere with behavioral disturbance; F02.81 - Dementia in other diseases classified elsewhere with behavioral disturbance (3) Depression Current Visit: Yes Status: Acute Assessment and plan: She has voiced no suicidal ideations. Discussed with patient concerning living situations she says she feels home, she says at times it has become frightened because they are strange noises that she is not recognized-I did inspect body there does not be in the liver suspicious wounds or bruises. No pain or discomfort voiced-I do not suspect any abuse Continue with home medications Qualifiers: Depression Type: major depressive disorder Major depression recurrence: recurrent Active/Remission status: remission status unspecified Qualified Code(s): F33.9 - Major depressive disorder, recurrent, unspecified (4) DVT prophylaxis Current Visit: No Status: Acute Assessment and plan: heparin subcutaneous (5) Anemia Current Visit: No Status: Chronic Qualifiers: Anemia type: other cause Other causes of anemia: chronic disease, other Qualified Code(s): D63.8 - Anemia in other chronic diseases classified elsewhere (6) Dehydration Current Visit: No Status: Acute - Subjective Interval history: Patient is alert and appropriate she follows simple commands. I did speak with patient's daughter Anna who is concerned patient has been striking her head on bathroom sitting over the past 3 weeks. She is concerned she is going to harm herself. She is not sure if this is attention seeking behavior she is never acted like this before. She does have a history of dementia however she has been very pleasant quiet and cooperative. She does not have any history of combativeness or other behavior issues. Today patient has been very cooperative with staff - Constitutional Vitals: Temp Pulse Resp BP Pulse Ox 98.6 F 79 14 147/65 94 05/19/17 18:36 05/19/17 18:36 05/19/17 18:36 05/19/17 18:36 05/19/17 18:36 General appearance: Present: A&O X 1, no acute distress, answers questions appropriately - Head Head exam: Present: atraumatic, normocephalic - Eye Eye exam: Present: PERRL, conjuntiva pink, sclera anicteric Pupils: Present: PERRL - Neck Neck exam general surgery: Present: supple, trachea midline. Absent: lymphadenopathy - Respiratory Respiratory exam: Present: CTAB. Absent: accessory muscle use, rales, rhonchi, wheezes - Cardiovascular Cardiovascular exam: Present: RRR, +S1, +S2. Absent: diastolic murmur, gallop, rubs, systolic murmur - GI/Abdominal GI/Abdominal exam: Present: normal bowel sounds, soft, no peritoneal signs. Absent: distended, tenderness - Extremities Exam Extremities exam: Present: warm, radial pulses palpable and symmetrical. Absent : calf tenderness, cyanotic, pedal edema - Neurological Exam Neurological exam: Present: CN II-XII intact, oriented X3, no focal deficits. Absent: pronater drift, facial droop, speech deficit - Skin Skin exam: Present: dry, intact Internal Medicine: Result - Labs CBC & Chem 7: 05/19/17 07:22 05/19/17 07:22 Labs: Short CBC 05/19/17 Range/Units 07:22 WBC 5.7 (4.3-11.1) K/mcL Hgb 10.5 L (11.5-15.4) g/dL Hct 32.0 L (35.3-44.9) % Plt Count 248 (140-400) K/mcL Neutrophils # 3.8 (1.6-8.9) K/mcL BMP 05/19/17 07:22 Sodium 135 L Potassium 4.2 Chloride 104 Carbon Dioxide 25 BUN 21 Creatinine 0.87 Glucose 89 Calcium 9.2 - ABG Interpretation ABG results: PT/INR, D-dimer PT 11.6 Seconds (9.4-12.1) 05/17/17 16:35 Consult Discharge Plan - Plan Referrals: Samia Ariza MD [Primary Care Provider] -
[2017-05-19] MEDS: traZODone 50 MG TABLET PO SCH (21:38)
[2017-05-19] MEDS: Mirtazapine 15 MG TABLET PO SCH (21:38)
[2017-05-19] MEDS: risperiDONE 0.25 MG TABLET PO SCH (21:38)
[2017-05-20] MEDS: *HR* Heparin 5,000 UNIT/ML VIAL SQ SCH ×2 (05:52→18:04)
[2017-05-20] MEDS: amLODIPine 5 MG TABLET PO SCH (08:50)
[2017-05-20] MEDS: Magnesium Oxide 400 MG TABLET PO SCH (08:50)
[2017-05-20] MEDS: Cholecalciferol (D-3) 1,000 UNIT TABLET PO SCH (08:50)
[2017-05-20] MEDS: Cyanocobalamin (B-12) 1,000 MCG TABLET PO SCH (08:51)
--- NOTE | 2017-05-20 18:16 | Internal Med Progress Note ---
Date of Encounter: 05/20/17 Time of Encounter: 18:14 - Assessment and plan (1) Encephalopathy acute Current Visit: No Status: Acute Assessment and plan: Patient had change in behavior she was hitting her head deliberately on the sink the daughter states that this type of behavior has been occurring over several weeks. Most recently occurring on Saturday when she walked in and found the patient hitting her head on the sink. Daughter is concerned that patient is going to injure herself. Patient is all alone she lives with her daughter and son-in-law she also has home health aides. Patient denies any ideations of harming herself. Over the past few weeks patient was recently treated for urinary tract infection I suspect may be this is contributing to her behavior. The daughter also expresses that patient has had outpatient treatment with a counselor. She will need further outpatient follow-up. CT of head is negative no signs and symptoms of infection UA and chest x-ray negative. According to patient's daughter she appears to be at baseline pleasant and cooperative TSH and calcium within normal limits Rest of lab work seems to be unremarkable His be related to dementia -we will continue with medication (2) Dementia Current Visit: Yes Status: Acute Assessment and plan: Continue with home medications PT OT evaluation Social service consult-patient receives home services [facility] prior to hospitalization-PT OT evaluation recommended home health Qualifiers: Dementia type: other frontotemporal dementia Dementia behavioral disturbance: with behavioral disturbance Qualified Code(s): G31.09 - Other frontotemporal dementia; F02.81 - Dementia in other diseases classified elsewhere with behavioral disturbance; F02.81 - Dementia in other diseases classified elsewhere with behavioral disturbance; F02.81 - Dementia in other diseases classified elsewhere with behavioral disturbance (3) Depression Current Visit: Yes Status: Acute Assessment and plan: She has voiced no suicidal ideations. Discussed with patient concerning living situations she says she feels home, no suspicious bruising or fractures I do not suspect any abuse No pain or discomfort voiced Continue with home medications Qualifiers: Depression Type: major depressive disorder Major depression recurrence: recurrent Active/Remission status: remission status unspecified Qualified Code(s): F33.9 - Major depressive disorder, recurrent, unspecified (4) DVT prophylaxis Current Visit: No Status: Acute Assessment and plan: heparin subcutaneous (5) Anemia Current Visit: No Status: Chronic Assessment and plan: Patient has history of chronic anemia -he had a colonoscopy in 2010 and 2013 with lymphocytic colitis she has a prior history of blood her stools she did have an EGD in January 2014 negative for any bleeding she did have a FOBT one week ago which was negative we will follow her H&H Qualifiers: Anemia type: other cause Other causes of anemia: chronic disease, other Qualified Code(s): D63.8 - Anemia in other chronic diseases classified elsewhere (6) Dehydration Current Visit: No Status: Acute Assessment and plan: This has resolved patient is eating and drinking without difficulty Check lab work in a.m. - Subjective Interval history: Patient is alert and appropriate she follows simple commands. She has been pleasant and cooperative with staff today, denies any pain or discomfort at this time patient will be discharged in the a.m., - Constitutional Vitals: Temp Pulse Resp BP Pulse Ox 97.5 F L 69 16 146/70 97 05/20/17 16:29 05/20/17 16:29 05/20/17 16:29 05/20/17 16:29 05/20/17 16:29 General appearance: Present: A&O X 1, no acute distress, answers questions appropriately - Head Head exam: Present: atraumatic, normocephalic - Eye Eye exam: Present: PERRL, conjuntiva pink, sclera anicteric Pupils: Present: PERRL - Neck Neck exam general surgery: Present: supple, trachea midline. Absent: lymphadenopathy - Respiratory Respiratory exam: Present: CTAB. Absent: accessory muscle use, rales, rhonchi, wheezes - Cardiovascular Cardiovascular exam: Present: RRR, +S1, +S2. Absent: diastolic murmur, gallop, rubs, systolic murmur - GI/Abdominal GI/Abdominal exam: Present: normal bowel sounds, soft, no peritoneal signs. Absent: distended, tenderness - Extremities Exam Extremities exam: Present: warm, radial pulses palpable and symmetrical. Absent : calf tenderness, cyanotic, pedal edema - Neurological Exam Neurological exam: Present: CN II-XII intact, oriented X3, no focal deficits. Absent: pronater drift, facial droop, speech deficit - Skin Skin exam: Present: dry, intact Internal Medicine: Result - Labs CBC & Chem 7: 05/19/17 07:22 05/19/17 07:22 - ABG Interpretation ABG results: PT/INR, D-dimer PT 11.6 Seconds (9.4-12.1) 05/17/17 16:35 Consult Discharge Plan - Plan Referrals: Samia Ariza MD [Primary Care Provider] -
[2017-05-20] MEDS: traZODone 50 MG TABLET PO SCH (21:16)
[2017-05-20] MEDS: risperiDONE 0.25 MG TABLET PO SCH (21:17)
[2017-05-20] MEDS: Mirtazapine 15 MG TABLET PO SCH (21:17)
[2017-05-21 05:12] LABS: Basophils % 0.5 %; Eosinophils # 0.2 K/mcL (0.0-0.6); Hemoglobin 9.8 g/dL (11.5-15.4); Immature Granulocytes % 0.3 % (0-4); Lymphocytes % 17.6 %; Mean Corpuscular HGB Conc 31.6 g/dL (31.6-35.5); Mean Corpuscular Hemoglobin 29.6 pg (28.0-33.3); Mean Corpuscular Volume 93.7 fL (83.0-100.0); Mean Platelet Volume 9.6 fL (9.4-12.4); Monocytes # 0.5 K/mcL (0.0-1.3); Monocytes % 8.9 %; Neutrophils # 3.9 K/mcL (1.6-8.9); Platelet Count 239 K/mcL (140-400); Red Blood Count 3.31 M/mcL (3.82-4.97); Segmented Neutrophils % 68.7 %
[2017-05-21 05:35] LABS: BUN/Creatinine Ratio 31 (6-26); Blood Urea Nitrogen 28 mg/dL (8-23); Calcium 9.1 mg/dL (8.6-10.3); Carbon Dioxide 25 mEq/L (23-29); Chloride 105 mEq/L (98-107); Glucose 90 mg/dL (70-105); Osmolality,Calculated 287 (280-300); Potassium 4.5 mEq/L (3.5-5.1); Sodium 136 mEq/L (136-145); eGFR For African Americans > 60 (> 60); eGFR For Non-African Americans 59 (> 60)
[2017-05-21] MEDS: *HR* Heparin 5,000 UNIT/ML VIAL SQ SCH (05:53)
[2017-05-21] MEDS: Cyanocobalamin (B-12) 1,000 MCG TABLET PO SCH (10:00)
[2017-05-21] MEDS: Cholecalciferol (D-3) 1,000 UNIT TABLET PO SCH (10:00)
[2017-05-21] MEDS: amLODIPine 5 MG TABLET PO SCH (10:01)
[2017-05-21] MEDS: Magnesium Oxide 400 MG TABLET PO SCH (10:01)
--- NOTE | 2017-05-21 10:33 | Discharge Summary ---
Date of Encounter: 05/21/17 Time of Encounter: 10:26 - Discharge Diagnosis (1) Encephalopathy acute Priority: Primary Status: Acute Comments: Patient had a change in behavior she was hitting her head deliberately on the sink, the daughter stated that this type of behavior has been occurring over several weeks. Most recently occurring on Saturday when she walked in and found the patient hitting her head on the sink. Daughter is concerned that patient is going to injure herself. Patient is all alone, she lives with her daughter and son-in-law, she also has home health aides. Patient denies any ideations of harming herself. Over the past few weeks patient was recently treated for urinary tract infection but has no UTI on this admission. The daughter also expresses that patient has had outpatient treatment with a counselor. She will need further outpatient follow-up. CT of head is negative no signs and symptoms of infection UA and chest x-ray negative. According to patient's daughter she appears to be at baseline pleasant and cooperative TSH and calcium within normal limits Rest of lab work unremarkable Secondary to dementia -l continue home medication (2) Depression Priority: Primary Status: Acute Comments: She has voiced no suicidal ideation, she has a rather flat affect but does follow commands Continue her medications Qualifiers: Depression Type: major depressive disorder Major depression recurrence: recurrent Active/Remission status: remission status unspecified Qualified Code(s): F33.9 - Major depressive disorder, recurrent, unspecified (3) Dehydration Priority: Primary Status: Acute Comments: Patient is eating and drinking without difficulty, she is on fluid restrictions. Lab work reviewed (4) Anemia Priority: Secondary Status: Chronic Comments: Patient has history of chronic anemia -she had a colonoscopy in 2010 and 2013 with lymphocytic colitis, she has a prior history of blood her stools she did have an EGD in January 2014 negative for any bleeding, she did have a FOBT one week ago which was negative H&H baseline Qualifiers: Anemia type: other cause Other causes of anemia: chronic disease, other Qualified Code(s): D63.8 - Anemia in other chronic diseases classified elsewhere (5) Dementia Priority: Secondary Status: Chronic Comments: Patient's mentation is back to baseline per the daughters at the bedside, continue home medication outpatient therapy health services, , Qualifiers: Dementia type: other frontotemporal dementia Dementia behavioral disturbance: with behavioral disturbance Qualified Code(s): G31.09 - Other frontotemporal dementia; F02.81 - Dementia in other diseases classified elsewhere with behavioral disturbance; F02.81 - Dementia in other diseases classified elsewhere with behavioral disturbance; F02.81 - Dementia in other diseases classified elsewhere with behavioral disturbance (6) Acute atopic conjunctivitis, left Priority: Primary Status: Acute Comments: Gentamicin prescription sent over to be started at home - Discharge Medications Prescriptions: Gentamicin OPTH Soln 1 drop LEFT EYE QID #1 bottle Home Medications: Amlodipine [Norvasc] 10 mg PO DAILY 11/30/14 [History] Simvastatin [Zocor] 20 mg PO QPM 11/30/14 [History] Alendronate Sodium [Fosamax] 70 mg PO QWEEK 09/01/15 [History] Calcium Carbonate/Vitamin D3 [Calcium 600 + Vit D Tablet] 1 each PO DAILY [History] Cholecalciferol (D-3) [Vitamin D] 1,000 unit PO DAILY 09/01/15 [History] Cyanocobalamin (Vitamin B-12) [Vitamin B-12] 1,000 mcg SL DAILY 09/01/15 [ History] Isosorbide DInitrate [Isosorbide Dinitrate] 10 mg PO BID 04/30/16 [History] BuPROPion [Wellbutrin] 75 mg PO DAILY 07/25/16 [History] Memantine [Namenda] 5 mg PO DAILY 07/25/16 [History] Sertraline [Zoloft] 25 mg PO DAILY 07/25/16 [History] risperiDONE [RisperDAL] 0.25 mg PO HS 07/25/16 [History] traZODone [TraZODone] 25 mg PO HS 07/25/16 [History] Lisinopril [Zestril] 5 mg PO DAILY #30 tablet 07/30/16 [Rx] Magnesium Oxide [Magnesium] 400 mg PO DAILY 30 Days capsule 07/30/16 [Rx] Acetaminophen [Non-Aspirin] 325 mg PO Q4HR PRN 02/05/17 [History] Donepezil [Aricept] 10 mg PO HS 02/05/17 [History] Ferrous Sulfate [Iron] 325 mg PO DAILY 02/05/17 [History] Mirtazapine [Remeron] 15 mg PO HS 02/05/17 [History] Potassium Chloride [K-Tab ER] 20 meq PO DAILY 02/05/17 [History] Gentamicin OPTH Soln 1 drop LEFT EYE QID #1 bottle 05/21/17 [Rx] Allergies/Adverse Reactions: 3 Allergy/AdvReac Type Severity Reaction Status Date / Time Oxycodone [From Percocet] Allergy hallucinati Verified 07/25/16 10:59 ons prednisone Allergy lip Verified 07/25/16 10:59 swelling Sulfa (Sulfonamide Allergy Rash Verified 07/25/16 10:59 Antibiotics) gabapentin AdvReac Confusion Verified 07/25/16 10:59 hydrocodone [From [place]] AdvReac Confusion Verified 07/25/16 10:59 meloxicam [From Mobic] AdvReac leg Verified 07/25/16 10:59 swelling Date of admission: 05/20/17 17:33 Primary care physician: Samia Ariza, Discharging clinician: Rosalee Dewey Anticipated date of discharge: 05/21/17 - Patient Status Disposition: Hospice - Home Condition: Fair - Discharge Instructions Follow Up With: Samia Ariza MD [Primary Care Provider] - 05/31/17 9:00 am - Diet and Activity Activity: resume usual activities as tolerated Interval History: Patient verbalizing to some questions. She is alert and oriented to person. She denies any complaints. Cooperative with physical therapy Hospital course: Ms. Barrett is a 87 year old female admitted from home with some behavioral changes. Please refer to the complete assessment and plan for further details of this admission - Time Spent with Patient Total time spent providing and/or coordinating discharge services: Less than 30 minutes - Constitutional Vitals: Temp Pulse Resp BP Pulse Ox 97.5 F L 60 16 117/68 98 05/21/17 07:19 05/21/17 07:19 05/21/17 07:19 05/21/17 07:19 05/21/17 07:19 General appearance: Present: A&O X 1, no acute distress, answers questions appropriately - Head Head exam: Present: atraumatic, normocephalic - Eye Eye exam: Present: PERRL, sclera anicteric Pupils: Present: PERRL Additional comments: Left eye reddened conjunctiva with dried yellow secretions noted - Neck Neck exam general surgery: Present: supple, trachea midline. Absent: lymphadenopathy - Respiratory Respiratory exam: Present: CTAB. Absent: accessory muscle use, rales, rhonchi, wheezes - Cardiovascular Cardiovascular exam: Present: RRR, +S1, +S2. Absent: diastolic murmur, gallop, rubs, systolic murmur - GI/Abdominal GI/Abdominal exam: Present: normal bowel sounds, soft, no peritoneal signs. Absent: distended, tenderness - Extremities Exam Extremities exam: Present: warm, radial pulses palpable and symmetrical. Absent : calf tenderness, cyanotic, pedal edema - Neurological Exam Neurological exam: Present: alert, no focal deficits. Absent: pronater drift, facial droop, speech deficit - Skin Skin exam: Present: dry, intact
--- NOTE | 2017-05-21 11:04 | Physician Discharge Referral ---
Home Health/Hosp Referral Info Attending Provider: leo kern - Diagnosis (1) Encephalopathy acute Priority: Primary Status: Acute (2) Depression Priority: Primary Status: Acute (3) Dehydration Priority: Primary Status: Acute (4) Anemia Priority: Secondary Status: Chronic (5) Dementia Priority: Primary Status: Chronic (6) Acute atopic conjunctivitis, left Priority: Primary Status: Acute - Respiratory Orders Smoking Cessation: Smoking cessation has been advised. For more information, call the [place] Tobacco Quit Line at 7-725-KDKV-NOW. - Diet/Nutrition Diet/Nutrition Orders: Cardiac - Activity Activity Orders: Up ad cy - Services Needed Following services are medically necessary services: Nursing, Home Health Aide, Physical Therapy, Occupational Therapy, Med Social Work - Transfer Medications Prescriptions: Gentamicin OPTH Soln 1 drop LEFT EYE QID #1 bottle Home Medications: Amlodipine [Norvasc] 10 mg PO DAILY 11/30/14 [History] Simvastatin [Zocor] 20 mg PO QPM 11/30/14 [History] Alendronate Sodium [Fosamax] 70 mg PO QWEEK 09/01/15 [History] Calcium Carbonate/Vitamin D3 [Calcium 600 + Vit D Tablet] 1 each PO DAILY [History] Cholecalciferol (D-3) [Vitamin D] 1,000 unit PO DAILY 09/01/15 [History] Cyanocobalamin (Vitamin B-12) [Vitamin B-12] 1,000 mcg SL DAILY 09/01/15 [ History] Isosorbide DInitrate [Isosorbide Dinitrate] 10 mg PO BID 04/30/16 [History] BuPROPion [Wellbutrin] 75 mg PO DAILY 07/25/16 [History] Memantine [Namenda] 5 mg PO DAILY 07/25/16 [History] Sertraline [Zoloft] 25 mg PO DAILY 07/25/16 [History] risperiDONE [RisperDAL] 0.25 mg PO HS 07/25/16 [History] traZODone [TraZODone] 25 mg PO HS 07/25/16 [History] Lisinopril [Zestril] 5 mg PO DAILY #30 tablet 07/30/16 [Rx] Magnesium Oxide [Magnesium] 400 mg PO DAILY 30 Days capsule 07/30/16 [Rx] Acetaminophen [Non-Aspirin] 325 mg PO Q4HR PRN 10/24/17 [History] Donepezil [Aricept] 10 mg PO HS 02/05/17 [History] Ferrous Sulfate [Iron] 325 mg PO DAILY 02/05/17 [History] Mirtazapine [Remeron] 15 mg PO HS 02/05/17 [History] Potassium Chloride [K-Tab ER] 20 meq PO DAILY 02/05/17 [History] Gentamicin OPTH Soln 1 drop LEFT EYE QID #1 bottle 05/21/17 [Rx] Allergies/Adverse Reactions: 3 Allergy/AdvReac Type Severity Reaction Status Date / Time Oxycodone [From Percocet] Allergy hallucinati Verified 07/25/16 10:59 ons prednisone Allergy lip Verified 07/25/16 10:59 swelling Sulfa (Sulfonamide Allergy Rash Verified 07/25/16 10:59 Antibiotics) gabapentin AdvReac Confusion Verified 07/25/16 10:59 hydrocodone [From [place]] AdvReac Confusion Verified 07/25/16 10:59 meloxicam [From Mobic] AdvReac leg Verified 07/25/16 10:59 swelling Certification: Further, I certify that my clinical findings support that this patient is homebound (i.e. absences from home require considerable and taxing effort and are for medical reasons or muslim services or infrequently or short duration when for other reasons) because: Homebound Reason: Patient requires assistance of a person or device to safely leave home, Leaving home requires considerable and taxing effort due to condition, Altered mental status requiring supervision when leaving home Attestation: My signature below is to certify that this patient is under my care and that I, or nurse practitioner, or a physician's addictions counselor assistant working with me, has a face-to -face encounter with this patient.
[2017-05-21 11:51] VITALS: BP 126/62
--- NOTE | 2017-05-21 18:27 | Electrocardiograph Report ---
[place] [id number] Test Date: 2017-05-17 Pat Name: Xin Barrett Department: [id number] Room: 3B Gender: F International Account Manager: BEBE : 1930 Requested By: Chin Rosas Order Number: [id number] Reading MD: Panda Khalil MD Measurements Intervals [place] Rate: 64 P: 67 [place]: 165 QRS: 24 QRSD: 80 T: 52 QT: 391 QTc: 400 Interpretive Statements SINUS RHYTHM BASELINE ARTIFACT Electronically Signed On 05-21-2017 18:26:39 EST by Panda Khalil MD
== END 2017-05-21 14:00 | disposition hospice, home (50) | DRG 71 ==
LOC: EMEROO 15:00 → 3BNU 15:00
PROVIDERS: ADMIT Internal Medicine Cardiovascular Disease; ATTEND Registered Nurse